=== PATIENT | female | born 1940 | race African-American/Black ===

== ENCOUNTER 2016-05-25 04:32 | Inpatient (IN) | payer MEDICARE ==
[~2016-05-25] VITALS: Ht 167.6 cm; Wt 60.6 kg
[~2016-05-25 04:32] MED LIST: CATAPRES0.1 MG PO; CATAPRES0.2 MG PO; CILOSTAZOL100 MG PO; COSOPT EYE DROPS5 ML EACH EYE; CREON DR 24,001 EACH PO; FUROSEMIDE20 MG PO; GABAPENTIN100 MG PO; LANTUS INSULIN10 ML SC; LASIX40 MG PO; LISINOPRIL10 MG PO; NORVASC10 MG PO; NOVOLOG INJ FLE; OS-CAL500 MG PO; PLAVIX75 MG PO; PROCRIT/EP40000 UNIT SQ; ROCALTROL0.25 MCG PO; SSD20 GM; TENORMIN50 MG PO; ZOCOR20 MG PO; [UNRECOGNIZED DRUG - REMARK]
[2016-05-25] MEDS ORDERED: FOLBIC RF TABL1 EACH PO (05:01)
[2016-05-25] MEDS ORDERED: ROCALTROL0.25 MCG PO (05:02)
[2016-05-25] MEDS ORDERED: PROCRIT/EP40000 UNIT SQ (05:04)
[2016-05-25] MEDS ORDERED: ZOCOR20 MG PO (05:05)
[2016-05-25] MEDS ORDERED: SODIUM BICARBO650 MG PO (05:06)
[2016-05-25] MEDS ORDERED: ZANTAC150 MG PO (05:07)
[2016-05-25] MEDS ORDERED: LOVENOX60 MG/0.6 SC (05:10)
--- NOTE | 2016-05-25 05:18 | NUR ---
PT RECEIVED AWAKE, ALERT, ORIENTED, VIA EMS FROM [facility]. FAMILY PRESENT AT BEDSIDE. PT DENIES ANY NEEDS. CONTINUE TO MONITOR CLOSELY.
[2016-05-25 05:29] VITALS: BP 182/79; BMI 23.3
[2016-05-25 06:17] LABS: ANION GAP 19.7 mmol/L (8-16); CALCIUM 7.4 mg/dL (8.5-10.1); CARBON DIOXIDE 18.2 mmol/L (21.0-32.0); CREATININE - SERUM 5.7 mg/dL (0.6-1.3); POTASSIUM - SERUM 3.9 mmol/L (3.5-5.1)
[2016-05-25 06:24] LABS: BASOPHILS 2.1 % (0.0-2.0); EOSINOPHILS 2.5 % (0-7); HEMATOCRIT 44.7 % (36.0-48.0); HEMOGLOBIN 14.2 g/dL (12-16); IMMATURE GRANULOCYTES 0.2 % (0-5); LYMPHOCYTES 17.2 % (15-50); MCH 28.7 pg (26.0-34.0); MCHC 31.8 g/dL (31.0-37.0); MCV 90.3 fL (80.0-100.0); MEAN PLATELET VOLUME 10.3 fL (7.4-10.4); MONOCYTES 6.1 % (2-11); NEUTROPHILS 71.9 % (40-80); RBC 4.95 10x6/uL (4.00-5.40); RDW 16.5 % (11.5-14.5); WBC 5.3 10x3/uL (4.8-10.8)
[2016-05-25 06:29] LABS: PLATELET COUNT 297 10x3/uL (130-400)
[2016-05-25 07:35] VITALS: BP 189/75
[2016-05-25 11:22] VITALS: BP 205/98
[2016-05-25 14:53] VITALS: Ht 167.6 cm; Wt 60.6 kg
--- NOTE | 2016-05-25 15:00 | NUR ---
CALL TO VERIFY WHAT TYPE OF ACCESS NEEDED FOR HD. HEMOSPLIT PLACEMENT ORDERED. ALERT AND ORIENTED X4. OOB WITH ASSISTANCE. FAMILY AT BEDSIDE TO ASSIST TO BATHROOM. DENIES PAIN. OXYGEN THERAPY CONTINUED FOR SOB DUE TO PULMONARY EDEMA. REFUSE SCDs. CONTINUE PLAN OF CARE. BED LOCKED AND LOW. CALL LIGHT IN REACH. TWO SIDERAILS UP.
[2016-05-25 15:34] VITALS: BP 237/102
--- NOTE | 2016-05-25 15:45 | NUR ---
OOB TO RESTROOM ASSISTED BY FAMILY. BP-237/102, O2 SAT 88% 2L NC. INCREASE O2 TO 3L NC. NOTIFY DR. OLEA OF ELEVATED BP. PRN BP MEDICATIONS ORDERED PER DOCTOR. ADMINISTER APRESOLINE 25MG PRN. REASSESS IN 30MINS. BED LOCKED AND LOW. CALL LIGHT IN REACH. TWO SIDERAILS UP.
--- NOTE | 2016-05-25 17:55 | NUR ---
REASSESS BP. BP-180/67. RESTING IN BED. FAMILY AT BEDSIDE. WAITING FOR . ALERT AND ORIENTED X4. DENIES PAIN. OXYGEN THERAPY CONTINUED. CONTINUE PLAN OF CARE AND SAFETY PRECAUTIONS.
[2016-05-25 22:42] VITALS: BP 193/88
--- NOTE | 2016-05-25 23:23 | NUR ---
REC'D COMING OUT OF BATHRMWITH DTR. IN ASSIST.VARGAS WELL WILL CONTINUE TO MONITOR FOR ANY CHGES. AND FOLLOW CURRENT PLAN OF CARE.
[2016-05-26 05:35] VITALS: BP 244/90
--- NOTE | 2016-05-26 06:00 | NUR ---
BLOOD PRESSURE 244 SYSTOLIC. APRESOLINE 25MG GIVEN PO OREDERED
[2016-05-26 06:32] LABS: BASOPHILS 1.8 % (0.0-2.0); EOSINOPHILS 2.3 % (0-7); HEMATOCRIT 43.2 % (36.0-48.0); HEMOGLOBIN 13.8 g/dL (12-16); IMMATURE GRANULOCYTES 0.2 % (0-5); LYMPHOCYTES 16.7 % (15-50); MCH 28.7 pg (26.0-34.0); MCHC 31.9 g/dL (31.0-37.0); MCV 89.8 fL (80.0-100.0); PLATELET COUNT 332 10x3/uL (130-400); RBC 4.81 10x6/uL (4.00-5.40); RDW 16.5 % (11.5-14.5); WBC 4.4 10x3/uL (4.8-10.8)
[2016-05-26 06:54] LABS: ANION GAP 15.6 mmol/L (8-16); CALCIUM 7.2 mg/dL (8.5-10.1); CARBON DIOXIDE 20.4 mmol/L (21.0-32.0); CREATININE - SERUM 5.9 mg/dL (0.6-1.3)
[2016-05-26 07:25] VITALS: BP 204/78
--- NOTE | 2016-05-26 09:00 | NUR ---
ALERT AND ORIENTED X4. TAKEN TO DIALYSIS VIA WHEELCHAIR. CONTINUE PLAN OF CARE AND SAFETY PRECAUTIONS.
[2016-05-26 15:33] VITALS: BP 160/63
[2016-05-26 22:28] VITALS: BP 148/80
[2016-05-27 00:59] VITALS: BP 153/68
--- NOTE | 2016-05-27 04:47 | NUR ---
NURSE ROUNDS 19:30 - PT AWAKE, ALERT, ORIENTED, FAMILY AT BEDSIDE. WE DISCUSSED PTS DIALYSIS, DENIED ANY DIFFICULTIES, STATES HER GENERALIZED EDEMA IS SLOWLY IMPROVING. PTS FSBS WAS 456. SOPHIA MCCLAIN APN SENIOR BIOINFORMATICS SPECIALIST FOR RENAL WAS NOTIFIED AND ORDERED HUMALONG LOW RESISTANCE S/S. PTS DAUGHTER WAS INITIALLY REFUSING FOR PT TO RECEIVE THE ORDERED LANTUS 30 UNITS, STATING SHE WAS TOO AFRAID PTS GLUCOSE WOULD BOTTOM OUT. WE DISCUSSED HOW LANTUS WORKED, AND THE IMPORTANCE OF GETTING PTS GLUCOSE DOWN TO A REASONABLE RANGE. PTS DAUGHTER AGREED TO THE 30 UNITS ALONG WITH THE 12 UNITS OF HUMALOG PER S/S. WE DISCUSSED S/S OF HYPOGLYCEMIA, AND DAUGHTER STATED SHE WOULD NOTIFY ME IMMEDIATELY IF ANYTHING CHANGED. CONTINUE TO MONITOR CLOSELY. BED LOW, CALL LIGHT IN REACH, SIDE RAILS X 2, HOB 30 DEGREES.
[2016-05-27 05:21] VITALS: BP 198/72
[2016-05-27 08:00] VITALS: BP 153/88
[2016-05-27 11:15] LABS: HEPATITIS C ANTIBODY <0.1 (0.0-0.9)
[2016-05-27 12:00] VITALS: BP 206/78
--- NOTE | 2016-05-27 12:09 | NUR ---
[facility] - Rec'd verbal order per Dr. Encarnacion, patient will need OPHD placement. Patient recently admitted to hospital for AVG placement. FDODE: 05/26/16. Patient from [place], [place], pt & family have requested placement @ [facility] for OPHD. Will upload documents and send referral. Will meet with the patient and her family for education this afternoon. APOORVA CABRALES.
[2016-05-27 16:00] VITALS: BP 177/73
--- NOTE | 2016-05-27 19:10 | NUR ---
RECEIVED REPORT, IV-RFA-SL, O2-3L, BED IS LOW, SRX2, CALL LIGHT IN REACH, FAMILY AT BEDSIDE, DENIES ANY NEEDS,
--- NOTE | 2016-05-27 19:38 | NUR ---
DR MART AND DR OLEA - ORDER TO INCREASE CILOSTAZOL TO 200MG BID WAS CANCELLED SINCE MAX DOSE IS 200MG/DAY IN PATIENTS WITH NORMAL RENAL FX - IF YOU STILL WANT 200MG BID IN THIS PATIENT PLEASE CALL PHARMACY
[2016-05-27 20:26] VITALS: BP 196/61
[2016-05-28 00:38] VITALS: BP 171/57
--- NOTE | 2016-05-28 03:52 | NUR ---
PACK TRAIN DRIVER AT BEDSIDE TO OBTAIN VITALS, CALL LIGHT IN REACH. WILL CONTINUE WITH PLAN OF CARE.
--- NOTE | 2016-05-28 03:54 | NUR ---
UP TO RESTROOM WITH DAUGHTERS HELP, OFFERED TO ASSIST BUT DAUGHTER SAID SHE HAD IT
[2016-05-28 04:40] VITALS: BP 175/66
--- NOTE | 2016-05-28 07:20 | NUR ---
RECIEVED REPORT O NPATIENT, PATIENT IS ALERT AND ORIENTED AT THIS TIME. DAUGHTER AT BEDSIDE. PATIENT HAS A R FA IV THAT IS SL AT THIS TIME. PATIENT IS ON ROOM AIR, NAD NOTED AT THIS TIME. CHEST RISES AND FALLS EQUALLY. PATIENT DENIES ANY NEEDS OR PAIN AT THIS TIME. BED IS LOW AND LOCKED. CALL LIGHT IN REACH. CPOC
[2016-05-28 08:00] VITALS: BP 167/68
--- NOTE | 2016-05-28 11:04 | NUR ---
PATIENT GONE TO DIAYLSIS. CPOC
--- NOTE | 2016-05-28 12:35 | NUR ---
Nutrition follow-up: Diet: Renal ADA consistent CHO PO intake 100% of most meals Labs reviewed; FSBS hihg +BM Pt new to dialysis Wt: 153# Will provide dialysis diet information and answer questions. RDN following.
--- NOTE | 2016-05-28 15:34 | NUR ---
patient back from diaylsis. patient vss. patient denies any pain. will cont to monitor patient. cpoc
[2016-05-28 16:00] VITALS: BP 152/59
--- NOTE | 2016-05-28 17:00 | NUR ---
PATIENT SITTING UP IN BED EATING DINNER, DENIES ANY PAIN. DAUGHTER AT BEDSIDE. CALL LIGHT IN REACH. CPOC
--- NOTE | 2016-05-28 19:15 | NUR ---
RECEIVED REPORT, 06-26L, IV-RFA-SL, FAMILY AT BEDSIDE, DENIES ANY NEEDS, CALL LIGHT IN REACH
[2016-05-28 19:51] VITALS: BP 151/65
--- NOTE | 2016-05-28 21:20 | NUR ---
[facility], GAVE 10UNITS OF LANTUS, 4 UNITS OF HUMALOG
[2016-05-29] VITALS (7 sets, daily range): BP systolic 132–224; BP diastolic 60–85
--- NOTE | 2016-05-29 03:15 | NUR ---
PT SLEEPING, CALL LIGHT IN REACH, BED IS LOW,
--- NOTE | 2016-05-29 05:29 | NUR ---
CALL LIGHT IN REACH. WILL CONTINUE WITH PLAN OF CARE.
--- NOTE | 2016-05-29 07:11 | NUR ---
RESTING, AROUSES EASILY, DAUGHTER AT BEDSIDE. ON 3L PER NC. RIGHT FOREARM SEEN WITH SALINE LOCK. LEFT AVF SEEN, + BRUIT AND + THRILL. DENIES NEEDS AT PRESENT TIME. WILL CONTINUE TO MONITOR.
--- NOTE | 2016-05-29 10:15 | NUR ---
PATIENT IS UP IN CHAIR FROM THERAPY. CALL LIGHT IN USE.
--- NOTE | 2016-05-29 10:40 | NUR ---
ASSISTED PATIENT X 2 ON AND OFF BEDPAN WHILE IN THE CHAIR FOR VERY LARGE BOWEL MOVEMENT.
--- NOTE | 2016-05-29 17:12 | NUR ---
[facility] ADDRESSING HER NEEDS I. DENIES ANY NEEDS AT THIS TIME. WILL CONTINUE TO MONITOR.
[2016-05-30 00:42] VITALS: BP 177/64
--- NOTE | 2016-05-30 04:59 | NUR ---
PT RESTING WITHOUT C/O OR DISTRESS NOTED. CALL LIGHT WITHIN REACH. WILL CONT TO MONITOR.
--- NOTE | 2016-05-30 05:58 | NUR ---
PT AM GLUCOSE 61. PT PROVIDED APPLE JUICE AND GHRAM CRACKERS
[2016-05-30 07:16] LABS: BASOPHILS 0.8 % (0.0-2.0); EOSINOPHILS 2.2 % (0-7); HEMATOCRIT 37.1 % (36.0-48.0); HEMOGLOBIN 11.7 g/dL (12-16); IMMATURE GRANULOCYTES 0.3 % (0-5); LYMPHOCYTES 12.9 % (15-50); MCHC 31.5 g/dL (31.0-37.0); MCV 91.8 fL (80.0-100.0); MONOCYTES 12.9 % (2-11); NEUTROPHILS 70.9 % (40-80); RBC 4.04 10x6/uL (4.00-5.40); RDW 17.1 % (11.5-14.5); WBC 7.8 10x3/uL (4.8-10.8)
[2016-05-30 07:17] LABS: PLATELET COUNT 259 10x3/uL (130-400)
[2016-05-30 07:18] VITALS: BP 151/59
--- NOTE | 2016-05-30 07:20 | NUR ---
RECEIVED REPORT. ASSUMED CARE OF PATIENT. DAUGHTER AT BEDSIDE. PATIENT WITH EYES CLOSED, RESP EVEN AND UNLABORED. EASILY AROUSED. CALL LIGHT WITHIN REAHC. NO DISTRESS.
[2016-05-30 07:26] VITALS: BP 151/59
[2016-05-30 07:28] LABS: ANION GAP 19.4 mmol/L (8-16); CALCIUM 7.3 mg/dL (8.5-10.1); CREATININE - SERUM 5.2 mg/dL (0.6-1.3); POTASSIUM - SERUM 3.4 mmol/L (3.5-5.1)
--- NOTE | 2016-05-30 11:04 | NUR ---
PATIENT TEMP ELEVATED AND BP ELEVATED. RENAL FOOD COUNTER WORKER NOTIFIED AND INFORMED THAT THIS [employer] REPORT DEVELOPER HELD BP MEDS DUE TO DIALYSIS. THIS [employer]BIEE REPORT DEVELOPER SPOKE WITH DIALYSIS NURSE DOWN STAIRS AND WAS TOLD THAT PATIENT SHOULD BE RECEIVING DIALYSIS WITHIN THE HOUR. RENAL FOOD COUNTER WORKER, SARAHI, STATED THAT IS WHAT SHE FIGURED AND RECEIVED NO NEW ORDERS TO ADMINISTER ANY ANTIHYPERTENSIVES.
[2016-05-30 11:30] VITALS: BP 199/75
--- NOTE | 2016-05-30 11:47 | NUR ---
PATIENT LEAVING UNIT VIA WHEELCHAIR AT THIS TIME FOR DIALYSIS DOWNSTAIRS IN DIALYSIS SUITE. NO DISTRESS UPON LEAVING UNIT.
--- NOTE | 2016-05-30 13:30 | NUR ---
RESTING ROOM AIR O2 SATURATION ON 2L OXYGEN VIA NASAL CANULA 92%. OXYGEN REMOVED FROM PATIENT FOR 7 MINUTES, PATIENT DESATED TO 82% ON ROOM AIR. OXYGEN REAPPLIED AT 2 LITERS/MIN VIA NASAL CANULA AND OXYGEN SATURATION WOULD NOT RISE ABOVE 87%. INCREASE OXYGEN TO 4 LITERS AND PATIENTS O2 SATURATION IS 91%
--- NOTE | 2016-05-30 16:09 | NUR ---
PATIENT RETURNED TO ROOM AFTER DIALYSIS. PATIENT HAD 2000ML PULLED FROM DIALYSIS TODAY. CALL LIGHT WITHIN REACH. FAMILY AT BEDSIDE. PATIENT CONSUMING LATE NOON MEAL.
--- NOTE | 2016-05-30 16:38 | NUR ---
Mrs. Ramos had hemodialysis today via her left upper arm av graft from 1215 until 1515. Average blood flow was 350 mls/minute. Net fluid removed was 2000 mls. Post vital signs were:B/P:141/107, HR:88, Temp:98.0, Resps:18.
--- NOTE | 2016-05-30 16:45 | NUR ---
FSBS 178. 2 UNITS HUMALOG ADMINISTERED PER SLIDING SCALE. NO DISTRESS.
[2016-05-30 20:30] VITALS: BP 170/53
--- NOTE | 2016-05-30 20:32 | NUR ---
RESTING IN BED EYES CLOSED. RESPIRATIONS OBSERVED. EVEN AND UNLABORED. FAMILY AT BEDSIDE
[2016-05-31 00:10] VITALS: BP 159/72
--- NOTE | 2016-05-31 02:25 | NUR ---
PT LAYING IN BED EYES CLOSED NO DISTRESS OBSERVED EYES CLOSED WILL MONITOR
[2016-05-31 04:20] VITALS: BP 174/68
--- NOTE | 2016-05-31 06:06 | NUR ---
ENTERED ROOM TO CHECK PT AM FSBS, PT LETHARGIC, ONLY RESPONDING TO PAINFUL STIMULI. CHANGE IN LOC NOTED. PT CONVERSANT THROUGHOUT NIGHT WHEN SPOKEN TO. AM FSBS 61. PRIOR AM FSBS SAME, CURRENT LOC ALTERED FROM PREVIOUS MORNING GLUCOSE. D50 ADMINISTERED, EKG OBTAINED, VITAL SIGNS 173/56 PULSE 88 02 93% 2L TEMP 100.3. EYES PERRLA. SBS AFTER D50 141 LOC ONLY SLIGHTLY ELEVATED. RAPID RESPONSE CALLED. PRIOR CVA NOTED, CALL PLACED TO DR MART OFFICE
[2016-05-31 06:40] LABS: ALBUMIN 1.7 g/dL (3.4-5.0); BILIRUBIN - TOTAL 0.4 mg/dL (0.2-1.3); CALCIUM 7.3 mg/dL (8.5-10.1); PHOSPHOROUS 5.2 mg/dL (2.5-4.9); PROTEIN - SERUM 5.1 g/dL (6.4-8.2)
[2016-05-31 06:43] LABS: ANION GAP 14.5 mmol/L (8-16); CARBON DIOXIDE 25.5 mmol/L (21.0-32.0); CREATININE - SERUM 3.8 mg/dL (0.6-1.3)
[2016-05-31 06:59] LABS: BASOPHILS 0.7 % (0.0-2.0); EOSINOPHILS 1.5 % (0-7); HEMATOCRIT 35.3 % (36.0-48.0); HEMOGLOBIN 11.1 g/dL (12-16); IMMATURE GRANULOCYTES 0.2 % (0-5); LYMPHOCYTES 13.5 % (15-50); MCH 28.8 pg (26.0-34.0); MCHC 31.4 g/dL (31.0-37.0); MCV 91.5 fL (80.0-100.0); MONOCYTES 16.7 % (2-11); NEUTROPHILS 67.4 % (40-80); PLATELET COUNT 233 10x3/uL (130-400); RBC 3.86 10x6/uL (4.00-5.40); RDW 17.1 % (11.5-14.5)
[2016-05-31 07:01] LABS: WBC 5.5 10x3/uL (4.8-10.8)
[2016-05-31 07:35] VITALS: BP 167/58
[2016-05-31 08:00] VITALS: BP 152/53
[2016-05-31 11:20] VITALS: BP 134/52
[2016-05-31 15:28] VITALS: BP 143/97
--- NOTE | 2016-05-31 18:40 | NUR ---
RESTING IN BED. FAMILY AT BEDSIDE. NO CHANGE. ANXIOUS TO GO HOME. PLAN TO DC IN AM. DENIES SOB OR PAIN. BED LOCKED AND LOW. CALL LIGHT IN REACH. TWO SIDERAILS UP.
--- NOTE | 2016-05-31 19:30 | NUR ---
ASSESSMENT COMPLETE, DENIES NEEDS AT THIS TIME. HOB UP SR UP X2, C/L IN REACH. DAUGHTER AT BEDSIDE FOR NIGHT. LEFT AVF WITH + BRUIT AND THRILL NOTED. EDEMA NOTED TO BILAT LOWER EXT. CONTINUE TO MONITOR.
--- NOTE | 2016-05-31 23:57 | NUR ---
EYES CLOSED, RESP UNLAB WITH O2 @ 2L NC IN PLACE. DROWSEY,NOT WANTING TO GET OOB TO GO TO BATHROOM WITH ASSIST. O2 SAT UNDER 90%. ASSIST WITH REPOSITIONING FOR C 7 C. VARGAS WELL. MONITORING CLOSELY FOR S/S OF ACUTE DISTRESS. C/L IN REACH.
[2016-06-01] VITALS: BP 158/64
--- NOTE | 2016-06-01 01:20 | NUR ---
O2 SAT 90%. NO S/S OF ACUTE DISTRESS NOTED. C/L IN REACH OF DAUGHTER.
[2016-06-01 06:29] LABS: BASOPHILS 1.4 % (0.0-2.0); EOSINOPHILS 1.9 % (0-7); HEMATOCRIT 33.5 % (36.0-48.0); HEMOGLOBIN 10.4 g/dL (12-16); IMMATURE GRANULOCYTES 0.2 % (0-5); LYMPHOCYTES 18.4 % (15-50); MCH 28.5 pg (26.0-34.0); MCV 91.8 fL (80.0-100.0); MEAN PLATELET VOLUME 11.1 fL (7.4-10.4); MONOCYTES 17.7 % (2-11); NEUTROPHILS 60.4 % (40-80); PLATELET COUNT 235 10x3/uL (130-400); RBC 3.65 10x6/uL (4.00-5.40); WBC 5.8 10x3/uL (4.8-10.8)
[2016-06-01 06:50] LABS: ANION GAP 13.7 mmol/L (8-16); CALCIUM 7.6 mg/dL (8.5-10.1); CARBON DIOXIDE 25.8 mmol/L (21.0-32.0); CREATININE - SERUM 4.7 mg/dL (0.6-1.3); POTASSIUM - SERUM 3.5 mmol/L (3.5-5.1)
--- NOTE | 2016-06-01 07:41 | NUR ---
AM ROUNDING- PT SITTING UP IN BED WITH EYES OPEN. FAMILY MEMBER (DAUGHTER) AT BEDSIDE. RESERVE LEFT ARM FOR AVF. + BRUIT, + THRILL. PT IS SUPPOSE TO DIALYZE TODAY PER DAUGHTER. ON 2L 0F 02 VIA NC. IV SEEN TO RIGHT WRIST, SALINE LOCKED AND PATENT. NO MONITOR. PER REPORT FROM MANAGER CRISIS NURSE KALIE PT IS SUPPOSE TO DIALYZE AND THEN POSSIBLY D/C. REFUSES SCDS. NO NEED AT CURRENT TIME. WILL CONTINUE TO MONITOR.
[2016-06-01 08:45] VITALS: BP 197/78
--- NOTE | 2016-06-01 10:12 | NUR ---
1000- PT TO DIALYSIS VIA WHEELCHAIR WITH ADONIS GANDHI.
--- NOTE | 2016-06-01 10:21 | NUR ---
Provided pt with renal diet information. RDN following.
--- NOTE | 2016-06-01 14:49 | NUR ---
1420- PT BACK FROM DIALYSIS VIA WHEELCHAIR.
--- NOTE | 2016-06-01 16:16 | NUR ---
ADONIS GANDHI CAME TO NURSES STATION TO INFORM ME THAT PTS O2 SAT WAS AT 85. WENT INTO ROOM AND TURNED PTS O2 SAT UP TO 3L VIA NC. PTS O2 SAT IS NOW 90. WILL CONTINUE TO MONITOR.
[2016-06-01 17:04] VITALS: BP 137/54
--- NOTE | 2016-06-01 18:19 | NUR ---
PT SITTING UP IN BED WITH EYES CLOSED RESTING. FAMILY MEMBER (DAUGHTER) AT BEDSIDE. NO NEED AT CURRENT TIME. WILL CONTINUE TO MONITOR.
--- NOTE | 2016-06-01 20:38 | NUR ---
PT AWAKE, ALERT, ORIENTED, LYING IN BED, HOB 20 DEGREES, FAMILY AT BEDSIDE. PT DENIES ANY NEEDS AND LOOKING FORWARD TO BEING D/C IN THE AM. CONTINUE TO MONITOR CLOSELY. BED LOW, CALL LIGHT IN REACH, SIDE RAILS X 2.
[2016-06-01 21:47] VITALS: BP 155/52
[2016-06-02 02:11] VITALS: BP 146/68
[2016-06-02 05:29] VITALS: BP 172/64
--- NOTE | 2016-06-02 06:11 | NUR ---
PT IS AWAKE, ALERT, DISORIENTED, AND CONFUSED. PT HAS HAD TRANSIENT EPISODES OF CONFUSION TO TIME, PLACE, AND SITUATION. PT REFUSED HER AM LABS. PT HAS HAD A LOW GRADE TEMP THIS SHIFT, BUT IT IS COMING DOWN ON ITS OWN. DAUGHTER AT BEDSIDE. CONTINUE TO MONITOR CLOSELY.
[2016-06-02] MEDS ORDERED: IPRAT-ALBUT 0.5-3 ML UPD (06:58)
[2016-06-02] MEDS ORDERED: PLAVIX75 MG PO (06:59)
[2016-06-02] MEDS ORDERED: CATAPRES0.2 MG PO (06:59)
[2016-06-02] MEDS ORDERED: TENORMIN50 MG PO (06:59)
[2016-06-02] MEDS ORDERED: HYDRALAZINE HCL50 MG PO (07:00)
[2016-06-02 08:45] VITALS: BP 139/53
[2016-06-02] MEDS ORDERED: SSD20 GM TP (09:30)
[2016-06-02] MEDS ORDERED: NOVOLOG100 U/M1 SC (09:30)
--- NOTE | 2016-06-02 11:14 | NUR ---
RESTING ROOM AIR SPO2: 81%
--- NOTE | 2016-06-02 11:50 | NUR ---
Patient Name: JUAN LAMB Encounter No: [id number] : 1940 Primary Insurance: MEDICARE A & B Anticipated DC Date: 06-02-2016 Planned Disposition: Home Health Service External Planned [facility] follow-up note: CM RECEIVED DISCHARGE ORDER, SPOKE TO PT AND DAUGHTER IN ROOM PT'S DAUGHTER WANTED UPDATE REPORTING SHE HAS TO DRIVE TO [place]. CM INFORMED DAUGHTER THAT OXYGEN TESTING NEEDED TO BE DONE FOR INSURANCE TO COVER THE SERVICE. PT'S DAUGHTER WILL BE DRIVING PT HOME TODAY AT DISCHARGE. IMPORTANT MESSAGE FROM MEDICARE PROVIDED AND DISCUSSED. PT AND FAMILY HAVE NO PREFERENCE ON DME COMPANY. MARISSA CALLED RAY WITH [employer] WHO REPORTED THAT THEY DO SERVICE [place] AND WILL DELIVER PORTABLE OXYGEN TO HOSPITAL ROOM FOR DISCHARGE [facility], NEBULIZER AND HOSPITAL BED DELIVERY TO PT'S HOME TODAY. CM CALLED [facility], , SPOKE TO RYAN WHO WILL RESUME HOME HEALTH ON WEDNESDAY, CM FAXED DISCHARGE INFORMATION TO [phone]. PT AND DAUGHTER NOTIFIED. NO FURTHER DISHCHARGE NEEDS IDENTIFIED. Sole Filler: Jules Brurows
[2016-06-02 11:59] VITALS: BP 140/52
--- NOTE | 2016-06-02 14:08 | NUR ---
DISCHARGE INSTRUCTIONS GIVEN TO DAUGHTER. DISCHARGE PAPERS SIGNED ON CHART. PORTABLE OXYGEN BROUGHT TO ROOM. DC RT FA IV TIP INTACT. ESCORT TO RIDE VIA WHEELCHAIR. REMAINS FREE FROM INJURY.
--- NOTE | 2016-06-05 08:32 | DS ---
PATIENT:JUAN LAMB :[birth year] MEDICAL RECORD: [id number] DISCHARGE SUMMARY ADMISSION DATE: 05/25/16 DISCHARGE DATE: 06/02/16 DATE OF DISCHARGE: 06/02/2016 This is a 75-year-old female with a past medical history of CKD, now on dialysis with ESRD secondary to diabetes and hypertension. She has been admitted and has a left IJ HemoSplit catheter placed. She has been ready to go home for the past couple of days and is somewhat deconditioned. We would have preferred a residential rehab facility, but family is going to take her home. PHYSICAL EXAMINATION: VITAL SIGNS: Blood pressure on discharge is 142/72 by the MD, with a heart rate of 66, respiratory rate 18. GENERAL: Elderly female, thin. HEENT: Extraocular muscles grossly intact, nasal cannula O2. NECK: No JVD or thyromegaly. Left IJ tunnel catheter clean with no sign of infection. CHEST: Regular rhythm. S1 and S2. LUNGS: Grossly clear to auscultation. ABDOMEN: Nontender in all 4 quadrants. EXTREMITIES: Trace lower extremity edema. No focal neurologic deficits. She has been able to ambulate to the bathroom with assistance her family member. HOME MEDICATIONS: Now, hydralazine 100 t.i.d., clonidine 0.2 t.i.d., albuterol updrafts p.r.n. q.i.d., Atenolol 100 mg a day. We have changed her insulin to lispro a.c. and h.s. sliding scale, Pepcid 20 mg a day, simvastatin 20 a day, amlodipine 10 a day, Creon 1 tab t.i.d. with meals, timolol 1 drop b.i.d. to her eyes, Neurontin 100 mg t.i.d., Plavix 75 a day, Pletal has been discontinued. PLAN: She will follow up at [facility] for continued dialysis and care with the family as mentioned above, somewhat concerned about her discharge where she is going with her family members, but they do seem very attentive but do not have a significant medical background. This patient discharge took greater than 30 minutes. Discussed with family and will likely call her dialysis unit as well. Stable on discharge. TRANSINT:[id number] Voice Confirmation ID: [id number] DOCUMENT ID: [id number] DARRELL BELTRAN MD at 0832 CC: [id number] DICTATION DATE: 06/02/1626 GRAIN COMBINER: 06/02/16 0757 DIS IN 06/02/16 [facility] [address] [place] [address]
== END 2016-06-02 14:11 | disposition home health service (06) | DRG 682 ==
LOC: D.M2 04:32
PROVIDERS: Internal Medicine; ADMIT Internal Medicine Nephrology
DX: N18.6 End stage renal disease (principal); J81.0 Acute pulmonary edema; I12.0 Hypertensive chronic kidney disease with stage 5 chronic kidney disease or end stage renal disease; E11.22 Type 2 diabetes mellitus with diabetic chronic kidney disease; Z79.4 Long term (current) use of insulin; Z86.73 Personal history of transient ischemic attack (TIA), and cerebral infarction without residual deficits; H40.9 Unspecified glaucoma; D63.1 Anemia in chronic kidney disease

== ENCOUNTER 2016-09-17 19:27 | Inpatient (IN) | payer MEDICARE ==
[~2016-09-17] VITALS: Ht 167.6 cm; Wt 60.1 kg
--- NOTE | ~2016-09-17 | HEMODYNAMI ---
PATIENT:JUAN LAMB MEDICAL RECORD: [id number] : 40 LOCATION:[facility] D.2104 ADMISSION DATE: 09/17/16 Generatedon:09/21/201610:24 Patient name: JUAN LAMB Patient #: [id number] SSN: : 1940 Date of study: 09/21/2016 Page: Of Hemodynamic Procedure Report Patient Data Patient Demographics Procedure consent was obtained First Name: JUAN Gender: Female Last Name: ADONIS : 1940 [facility] Initial: A Age: 76 year(s) Patient #: [id number] Race: Black Additional ID: [id number] Contact details Address: [address] [place] [address] State: [place] City: [place] Zip code: [address] Admission Admission Data Admission Date: 09/17/2016 Admission Time: 19:27 Room #: D.2104 Procedure Procedure Types Cath Procedure Peripheral Cath Diagnostic Procedure Miscellaneous Procedure Description Procedure Date Procedure Date: 09/21/2016 Procedure Start Time: 9:46 Procedure Staff Name Function Bernardo Haas MD Performing Physician Dena Collins RT Scrub Leigh Pimentel RN Nurse Nishant Maurice RT Monitor Procedure Data Cath Procedure Fluoroscopy Diagnostic fluoroscopy Total fluoroscopy Time: 3.7 time: 3.7 min min Diagnostic fluoroscopy Total fluoroscopy dose: 35 dose: 35 mGy mGy Contrast Material Contrast Material Type Amount (ml) Isovue 300 72 Procedure Medications Medication Administration Route Dosage Oxygen NC 3 l/min Heparin Flush Bag added to field 1 bags (1000units/500ml NS) Lidocaine 1% added to field 20 Fentanyl I.V. 25 mcg Fentanyl I.V. 25 mcg Versed I.V. 0.5 mg Versed I.V. 0.5 mg Hemodynamics Rest Heart Rate: 89 (bpm) Snapshots Pre Cath Intra NCS Post Cath Vital Signs Time Heart Resp SPO2 NIBP (mmHg) Rhythm Pain Sedation Rate (ipm) (%) Status Level (bpm) 9:29:09 84 14 146/71(127) NSR 0 (11) 10(A) , No pain 9:33:23 83 16 96 165/76(122) NSR 0 (11) 10(A) , No pain 9:37:45 85 13 98 167/69(131) NSR 0 (11) 10(A) , No pain 9:42:05 86 14 97 166/81(124) NSR 0 (11) 10(A) , No pain 9:46:26 79 12 96 173/79(124) NSR 0 (11) 10(A) , No pain 9:50:50 75 12 95 176/76(142) NSR 0 (11) 10(A) , No pain 9:55:14 74 10 96 178/74(140) NSR 0 (11) 9(A) , No pain 9:59:40 75 10 97 169/70(127) NSR 0 (11) 10(A) , No pain 10:04:00 80 12 97 167/77(127) NSR 0 (11) 9(A) , No pain 10:08:25 77 10 98 158/66(119) NSR 0 (11) 9(A) , No pain 10:13:24 81 12 96 Measuring NSR 0 (11) 9(A) , No pain 10:13:40 79 10 96 176/90(136) NSR 0 (11) 9(A) , No pain 10:18:04 79 10 98 163/78(150) NSR 0 (11) 9(A) , No pain 10:22:24 81 2 96 174/75(134) NSR 0 (11) 9(A) , No pain Medications Time Medication Route Dose Verified Delivered Reason Notes Effe ctiveness by by 9:40:49 Oxygen NC 3 Leigh Leigh Per l/min King YVETTE Pimentel RN protocol 9:41:02 Heparin Flush added 1 Leigh Leigh used for Bag to bags King YVETTE Pimentel RN procedure (1000units/500ml field NS) 9:41:13 Lidocaine 1% added 20ml Leigh Leigh for local to vial King YVETTE Pimentel RN anesthetic field 9:47:29 Fentanyl I.V. 25 Leigh Leigh for mcg King YVETTE Pimentel RN sedation 9:52:12 Fentanyl I.V. 25 Leigh Leigh for mcg King YVETTE Pimentel RN sedation 9:54:18 Versed I.V. 0.5 Leigh Leigh for mg King YVETTE Pimentel RN sedation 10:00:59 Versed I.V. 0.5 Leigh Leigh for mg King YVETTE Pimentel RN sedation Procedure Log Time Note 9:22:16 Nishant Maurice RT (R) (CV) sent for patient. Start room use. 9:22:35 Use device set IR Diagnostic 9:22:36 Bag Decanter opened to sterile field. 9:22:37 Sterile Angiographic Pack opened to sterile field. 9:22:43 Time tracking: Regular hours 9:22:47 Plan of Care:Hemodynamics will remain stable., Cardiac rhythm will remain stable., Comfort level will be maintained., Respiratory function will remain adequate., Patient/ family verbilizes understanding of procedure., Procedure tolerated without complication., Recovers from procedure without complications.. 9:23:06 Patient received from Med II to IR Alert and oriented. Tansferred to table in Supine position. 9:23:15 Correct patient and procedure confirmed by team. 9:23:17 Signed procedure consent form obtained from patient. 9:23:18 ECG and BP/O2 sat monitors applied to patient. 9:23:19 Full Disclosure recording started 9:23:20 - 9:23:28 H&P Date Dictated: 09/21/2016 Within 30 days and on chart.. 9:23:29 Pre-procedure instructions explained to patient. 9:23:30 Pre-op teaching completed and patient verbalized understanding. 9:23:31 Family in waiting room. 9:23:33 Patient NPO since Midnight. 9:23:37 Is the patient allergic to Iodine/contrast media? No. 9:28:04 Vital chart was started 9:28:05 Baseline sample Acquired. 9:28:08 Rhythm: sinus rhythm 9:29:34 Baseline sample Acquired. 9:39:34 Is patient on blood thinner?No 9:40:09 Patient diabetic? Yes. 9:40:11 If diabetic: On Metformin? No 9:40:13 - 9:40:14 ----Pre-sedation anethsthesia assessment.---- 9:40:17 Previous problem with sedation/anesthesia? No ? 9:40:23 Snore? No 9:40:25 Sleep apnea? No 9:40:28 Deviated septum? No 9:40:29 Opens mouth fully? Yes 9:40:31 Sticks out tongue? Yes 9:40:33 Airway obstruction? No ? 9:40:36 Dentures? No ? 9:40:37 - 9:40:44 Patient pain scale 0/10 no pain. 9:40:49 Oxygen 3 l/min NC was administered by Leigh Pimentel RN; Per protocol; 9:40:52 IV patent on arrival in right wrist with 0.9% NaCl at [facility]. 9:40:56 Sharps counted by scrub and verified by R.N. 9:40:56 Alarms reviewed by RShelton N. 9:41:02 Heparin Flush Bag (1000units/500ml NS) 1 bags added to field was administered by Leigh Pimentel RN; used for procedure; 9:41:13 Lidocaine 1% 20ml vial added to field was administered by Leigh Pimentel RN; for local anesthetic; 9:41:14 Left Arm area was prepped with chlora-prep and draped in sterile fashio n 9:45:25 Physician arrived 9:45:26 --------ALL STOP TIME OUT------ 9:45:27 Final Timeout: patient, procedure, and site verified with staff and physician. All members of the team are in agreement. 9:45:33 Left Arm site verified by team. 9:45:38 Physical assessment completed. ASA score P 3 - A patient with severe systemic disease as per Bernardo Haas MD. 9:45:43 Sedation plan: IV Moderate Sedation Versed, Fentanyl 9:46:00 Procedure started. 9:46:06 Local anesthetic to left arm with Lidocaine 1% by Bernardo Haas MD.INITIAL ACCESS ONLY 9:46:09 DILATOR, VESSEL 5/20 opened to sterile field. 9:46:10 PERCUTANEOUS ENTRY 19GA needle opened to sterile field. 9:46:10 Cook DOC .035 guide wire opened to sterile field. 9:47:29 Fentanyl 25 mcg I.V. was administered by Leigh Pimentel RN; for sedation; 9:47:46 Terumo 4FR Straight 65CM glide catheter opened to sterile field. 9:48:27 Terumo 5Fr [place] Sheath opened to sterile field. 9:52:12 Fentanyl 25 mcg I.V. was administered by Leigh Pimentel RN; for sedation; 9:54:18 Versed 0.5 mg I.V. was administered by Leigh Pimentel RN; for sedation; 9:58:48 Inflation number: 1 A Cordis Powerflex Pro 8.0 x 40 x 80cm balloon was prepped and advanced across the Undefined1, then inflated to 0 ARLENE for 0:00 (min:sec). 9:59:00 BasixTOUCH Inflation Syringe opened to sterile field. 10:00:59 Versed 0.5 mg I.V. was administered by Leigh Pimentel RN; for sedation; 10:12:19 Procedure ended.(Physican Out) 10:13:21 Fluoroscopy time 03.70 minutes. 10:13:26 Fluoroscopy dose: 35 mGy 10:13:26 Flurop Dose total: 35 10:13:31 Contrast amount:Isovue 300 72ml. 10:13:33 Sharps counted by scrub and verified by R.N. 10:14:10 Insertion/operative site no bleeding no hematoma. 10:14:15 Post-op/insertion site Left Fistula dressed using a 4 x 4 and Tegaderm. 10:14:24 Post left arm:stable 10:14:31 Post-procedure physical assessment completed. ASA score P 3 - A patient with severe systemic disease as per Bernardo Haas MD. 10:14:34 Post procedure rhythm: unchanged. 10:14:36 Post procedure instruction explained to patient.Patient verbalizes understanding. 10:22:09 Procedure and supply charges have been captured, reviewed, submitted an d are correct. 10:22:13 Patient transfered to [facility] with Bed. 10:22:16 Report given to [facility] II. 10:24:11 Vital chart was stopped Intervention Summary Intervention Notes Time ActionType Lesion and Equipment Action# Pressure Duration Attributes Used 9:58:48 Inflate Undefined1 Cordis 1 0 00:00 balloon Powerflex Pro 8.0 x 40 x 80cm balloon Device Usage Item Name Manufacture Quantity Catalog Hospital Part Current Minimal Lot# / Number Charge Number Stock Stock Serial# Code Bag Decanter Microtek 1 [id number] [id number] 5 [employer] Sterile Cardinal 1 [id number] [id number] 5 Angiographic Health Pack DILATOR, Cook Medical 1 [id number] 180032 44631 316274 5 [id number] VESSEL 10/10 PERCUTANEOUS Cook Medical 1 [id number] 120269 5 [id number] ENTRY 19GA needle Cook DOC Cook Medical 1 [id number] 251431 674812 5 [id number] .035 guide wire Terumo 4FR Terumo 1 [id number] [id number] 470071 5 Straight 65CM glide catheter Terumo 5Fr Terumo 1 [id number] [id number] 980611 180997 40 [place] Sheath Cordis Cardinal 1 [id number] 381787 042549 5 Powerflex Health Pro 8.0 x 40 x 80cm balloon BasixTOUCH [facility] 1 [id number] 035505 584798 5 Inflation Medical Syringe Signature Audit [place] Stage Time Signature Unsigned Intra-Procedure 09/21/2016 Nishant 10:24:08 AM Kaylene RT (R) (CV) Signatures Monitor : Nishant Signature : Kaylene RT Date : Time : [place] [id number]
[~2016-09-17 19:27] MED LIST changes: +FOLBIC RF TABL1 EACH PO; +HYDRALAZINE HCL50 MG PO; +IPRAT-ALBUT 0.5-3 ML UPD; +LOVENOX60 MG/0.6 SC; +NOVOLOG100 U/M1 SC; +SODIUM BICARBO650 MG PO; +SSD20 GM TP; +ZANTAC150 MG PO
--- NOTE | 2016-09-17 19:45 | NUR ---
REC VIA STRETCHER/EMS FROM [facility]. PATIENT IS ALERT/ORIENTED X 4, BUT NOT A GOOD HISTORIAN OF HEALTH HISTORY. HER DAUGHTER IS WITH HER AND STAYING THE NIGHT. IV IS IN R HAND INTACT SL. LEFT ARM FISTULA WITH POSITIVE BRUIT/THRILL. CHANGED DEPENDS DUE TO INCONTINENCE OF URINE AND STOOL. BLANCHABLE REDDENED AREA ON COCCYX NOTED. BILATERAL HEELS AND GREAT TOES WITH DRSG. REMOVED DRSG'S AND ASSESSED RIGHT HEEL WITH BLACKEN, NECROTIC SKIN AND LEFT HEEL WITH PINKISH/NECROTIC SKIN. BOTH GREAT TOES HAD TOENAILS EXCISED. DENIES PAIN. DRSG'S REPLACED. ORIENTED TO ROOM AND CALL LIGHT.
[2016-09-17 20:00] VITALS: BP 168/84
--- NOTE | 2016-09-17 21:50 | NUR ---
SITTING ON SIDE OF BED. GAVE HER A SANDWICH AND APPLESAUCE PER REQUEST. HER DAUGHTER GAVE INFORMATION FOR HEALTH HISTORY AND MEDICATIONS.
[2016-09-17] MEDS ORDERED: LANTUS SOL100 UNIT/1 SC ×2 (22:01→22:02)
[2016-09-17] MEDS ORDERED: CALCIUM CITRATE PLUS PO (22:10)
[2016-09-17] MEDS ORDERED: ACETAMINOPHEN500 M1 PO (22:12)
--- NOTE | 2016-09-17 23:54 | NUR ---
APPLIED SCD'S AND FOAM HEEL PROTECTOR'S. DENIES PAIN OR ANY OTHER NEEDS.
[2016-09-18] VITALS: BP 183/88
[2016-09-18 02:40] VITALS: BP 168/84; BMI 17.8
--- NOTE | 2016-09-18 03:11 | NUR ---
RESTING QUIETLY WITH EYES CLOSED. RR 16 EVEN U/L ON RA. SCD'S ARE ON. HER DAUGHTER IS PRESENT IN ROOM IN RECLINER.
[2016-09-18 04:00] VITALS: BP 135/63
--- NOTE | 2016-09-18 05:30 | NUR ---
AWAKE REQUESTED MORE ICE WATER. HEAD OPERATOR PRESENT IN ROOM.
[2016-09-18 05:55] LABS: BASOPHILS 0.2 % (0-2); EOSINOPHILS 1.5 % (0-7); HEMATOCRIT 29.6 % (36.0-48.0); HEMOGLOBIN 9.6 g/dL (12-16); IMMATURE GRANULOCYTES 0.3 % (0-5); LYMPHOCYTES 9.4 % (15-50); MCH 31.8 pg (26.0-34.0); MCHC 32.4 g/dL (31.0-37.0); MEAN PLATELET VOLUME 9.8 fL (7.4-10.4); NEUTROPHILS 81.6 % (40-80); PLATELET COUNT 241 10x3/uL (130-400); RBC 3.02 10x6/uL (4.00-5.40); RDW 13.9 % (11.5-14.5); WBC 12.1 10x3/uL (4.8-10.8)
[2016-09-18 06:53] LABS: ALBUMIN 2.4 g/dL (3.4-5.0); ANION GAP 14.9 mmol/L (8-16); BILIRUBIN - DIRECT 0.1 mg/dL (0.00-0.30); BILIRUBIN - INDIRECT 0.23 mg/dL (0.00-1.00); BILIRUBIN - TOTAL 0.33 mg/dL (0.2-1.3); CALCIUM 8.3 mg/dL (8.5-10.1); CARBON DIOXIDE 24.2 mmol/L (21.0-32.0); CREATININE - SERUM 3.7 mg/dL (0.6-1.3); PHOSPHOROUS 5.3 mg/dL (2.5-4.9); POTASSIUM - SERUM 4.1 mmol/L (3.5-5.1); PROTEIN - SERUM 6.7 g/dL (6.4-8.2); VANCOMYCIN - RANDOM 14.2 ug/mL (10.0-20.0)
--- NOTE | 2016-09-18 07:58 | NUR ---
AM ROUNDS - PT SITTING ON THE SIDE OF HER BED WITH 2 DAUGHTERS AT BEDSIDE. PT HAS GAUZE WRAPING TO BILAT HEELS AND BILAT GREAT TOES. DAUGHTER STATES THAT SHE WAS RECIEVING DRESSING CHANGES WITH [facility] NURSE. WILL CONSULT WITH WOUND CARE HERE. PT ON RA. STATES SHE IS HUNGRY AND WAITING ON BREAKFAST. 20G TO RIGHT HAND, SL. CALL ROSE IN USE. WILL CONTINUE TO MONITOR.
[2016-09-18 08:19] VITALS: BP 176/80
[2016-09-18 09:30] LABS: APTT 33.8 SECONDS (22.8-39.4); INR 1.09 (0.85-1.17)
[2016-09-18 10:38] VITALS: Ht 167.6 cm; Wt 60.1 kg
--- NOTE | 2016-09-18 11:01 | NUR ---
WOUND CARE CONSULT: PT ADMITTED LAST NIGHT AND IT WAS NOTED THAT SHE HAD CHRONIC SEVERAL WOUNDS. #1 RIGHT GREAT TOE - NAIL HAS BEEN REMOVED (OVER A MONTH AGO) AND THERE IS AN OPEN AREA OF SKIN. THERE IS A SMALL AMOUNT OF SEROUS DRAINAGE WITHOUT ODOR. #2 RIGHT HEEL - UNSTAGEABLE PRESSURE INJURY COVERING THE ENTIRE HEEL. APPROX 6CM X 6CM X BLACK DRY ESCAR. NO DRAINAGE. #3 LEFT GREAT TOE - NAIL REMOVED (OVER A MONTH AGO) WITH OPEN AREA OF SKIN. SMALL SEROUS DRAINAGE NO ODOR. #4 LEFT HEEL - UNSTAGEABLE PRESSURE INJURY WITH BLACK ESCAR AND ON THE MEDIAL ASPECT THE ESCAR HAS COME OFF TO REVEAL INTACT PINK TISSUE. NO DRAINAGE OR ODOR NOTED. #5 COCCYX - STAGE 1 PRESSURE ULCER. NON-BLANCHABLE - VERY TENDER TO THE TOUCH. CURRENT TREATMENT IS FOLLOWS: - BILATERAL GREAT TOES - SILVADENE OINTMENT TO OPEN AREAS - COVERED WITH 4X4S AND SECURED WITH TAPE. - BILATERAL HEELS - BETADINE PAINT TO ESCAR AREAS - COVER WITH 4X4S AND SECURE WITH KERLIX. - COCCYX IS CURRENTLY UNPROTECTED - COVERED WITH MEPILEX SACRAL DRESSING AND PLACED PT ON A TURN Q2H SCHEDULE. WILL RECOMMEND AN AIR OVERLAY MATTRESS AND CONTINUATION OF PRESENT TX. WOUND CARE WILL CONTINUE TO MONITOR.
--- NOTE | 2016-09-18 11:04 | NUR ---
BS IS 472. PAGES CIRA MCCLAIN. AWAITING CALL
[2016-09-18 12:18] VITALS: BP 184/77
--- NOTE | 2016-09-18 14:38 | NUR ---
PT TO DIALYSIS VIA BED.
--- NOTE | 2016-09-18 18:13 | NUR ---
PM NOTE - PT IN DIALYSIS
[2016-09-18 19:00] VITALS: BP 199/78
--- NOTE | 2016-09-18 19:10 | NUR ---
REC REPORT, ASSUMED CARE OF PATIENT. ALERT/AWAKE DENIES PAIN OR ANY NEEDS. IV IN R HAND INTACT SL. UPPER ARM AVF WITH POSITIVE BRUIT/THRILL. DRSG'S TO BILATERAL HEELS NOTED. HER DAUGHTER IS PRESENT IN ROOM.
--- NOTE | 2016-09-18 20:30 | NUR ---
ASSISTED ELECTRICAL CONTROLS ENGINEER WITH CLEANING FOR INCONTINENCE OF STOOL. PLACED NEW MEPELIX DRSG TO BUTTOCK.
--- NOTE | 2016-09-19 02:22 | NUR ---
REPOSITIONED TO LEFT SIDE WITH PILLOW TO HER BACK. FLUSHED R HAND IV AND SL.
[2016-09-19 06:32] LABS: BASOPHILS 0.3 % (0-2); EOSINOPHILS 2.1 % (0-7); HEMATOCRIT 29.7 % (36.0-48.0); HEMOGLOBIN 9.6 g/dL (12-16); IMMATURE GRANULOCYTES 0.1 % (0-5); LYMPHOCYTES 16.2 % (15-50); MCHC 32.3 g/dL (31.0-37.0); MCV 95.8 fL (80.0-100.0); MEAN PLATELET VOLUME 9.4 fL (7.4-10.4); MONOCYTES 12.1 % (2-11); NEUTROPHILS 69.2 % (40-80); PLATELET COUNT 235 10x3/uL (130-400); WBC 8.6 10x3/uL (4.8-10.8)
[2016-09-19 06:50] LABS: ANION GAP 12.7 mmol/L (8-16); CALCIUM 8.2 mg/dL (8.5-10.1); CARBON DIOXIDE 26.5 mmol/L (21.0-32.0); PHOSPHOROUS 4.5 mg/dL (2.5-4.9)
[2016-09-19 06:54] LABS: CREATININE - SERUM 2.7 mg/dL (0.6-1.3); POTASSIUM - SERUM 3.2 mmol/L (3.5-5.1)
[2016-09-19 07:33] VITALS: BP 81/51
[2016-09-19 08:00] VITALS: BP 163/57
--- NOTE | 2016-09-19 08:15 | NUR ---
PATIENT IS AWAKE AND ALERT, SHE IS SMILING AND SITTING UP GETTING READY FOR BREAKFAST. SHE HAS LEFT ARM RESERVE D/T FISTULA. SHE HAS BILAT. SCD'S ON.
[2016-09-19 10:11] LABS: HEPATITIS C ANTIBODY <0.1 (0.0-0.9)
--- NOTE | 2016-09-19 10:30 | NUR ---
PATIENT'S IV INFILTRATED IN RIGHT HAND, PLUMBING CONTRACTOR EVELIO CRUZ RESTARTED IV CATH 20 G. IN RIGHT HAND.
--- NOTE | 2016-09-19 12:22 | NUR ---
FSBS CHECKED NOW AND IT IS 370, CALLED FOR INSULIN.
--- NOTE | 2016-09-19 13:30 | NUR ---
CALLED FOR INSULIN.
--- NOTE | 2016-09-19 15:39 | NUR ---
CHNAGED PATIENT'S BILAT TOE AND HEEL DRESSINGS.
--- NOTE | 2016-09-19 16:52 | NUR ---
FSBS 290, SEE MAR
--- NOTE | 2016-09-19 21:51 | NUR ---
PT LYING IN BED, EYES CLOSED, RESPIRATIONS EVEN AND UNLABORED. PT IS EASILY ROUSABLE TO VERBAL STIMULI. DAUGHTER AT BEDSIDE. PT IS MILDLY AGITATED, REFUSING TO HAVE HER B/P CHECKED. BUNNY BOOTS ON BILATERAL HEELS, SCD'S ON. WILL MONITOR CLOSELY AND TRY HARDER TO GET V/S. BED LOW, CALL LIGHT IN REACH, SIDE RAILS X 2, HOB 20 DEGREES.
[2016-09-20] VITALS: BP 158/58
--- NOTE | 2016-09-20 02:00 | NUR ---
PT LYING IN BED, AWAKE, DIFFICULT TO ASSESS ALERTNESS OR ORIENTATION AT THIS TIME. PT DOES NOT RESPOND TO ANY QUESTIONS, AND PULLS AWAY FROM ANY TOUCH. PT WAS AGITATED AND PULLED AWAY FROM ME WHEN I WAS HOOKING UP HER IV FOR HER IV ZOSYN INFUSION. WILL CONTINUE TO MONITOR CLOSELY. DAUGHTER IN CHAIR AT BEDSIDE. BED LOW, CALL LIGHT IN REACH, SIDE RAILS X 2, HOB 15 DEGREES.
[2016-09-20 04:00] VITALS: BP 158/61
--- NOTE | 2016-09-20 04:34 | NUR ---
PT LYING IN BED, EYES CLOSED, RESPIRATIONS EVEN AND UNLABORED. PT REFUSES TO BE TURNED, REMAINS ON A 1ST STEP OVERLAY. PTS DAUGHTER IS AT BEDSIDE CHAIR. CONTINUE TO MONITOR CLOSELY. BED LOW, CALL LIGHT IN REACH, SIDE RAILS X 2, HOB 10 DEGREES.
[2016-09-20 05:07] LABS: BASOPHILS 0.8 % (0-2); EOSINOPHILS 2.4 % (0-7); HEMATOCRIT 29.7 % (36.0-48.0); HEMOGLOBIN 9.4 g/dL (12-16); IMMATURE GRANULOCYTES 0.3 % (0-5); LYMPHOCYTES 14.2 % (15-50); MCH 30.3 pg (26.0-34.0); MCHC 31.6 g/dL (31.0-37.0); MCV 95.8 fL (80.0-100.0); MEAN PLATELET VOLUME 8.9 fL (7.4-10.4); MONOCYTES 11.7 % (2-11); NEUTROPHILS 70.6 % (40-80); PLATELET COUNT 234 10x3/uL (130-400)
[2016-09-20 05:47] LABS: ANION GAP 17.7 mmol/L (8-16)
[2016-09-20 05:53] LABS: POTASSIUM - SERUM 3.7 mmol/L (3.5-5.1)
--- NOTE | 2016-09-20 07:45 | NUR ---
CHARTS CHECKED. SHIFT ASSESSMENT COMPLETED. INTRODUCED MYSELF TO PT PRIMARY RN FOR TODAYS SHIFT. PT RESTING QUIETLY AND DENIES ANY CURRENT NEEDS AT THIS TIME. CL IN REACH. WILL CTM.
[2016-09-20 08:00] VITALS: BP 138/50
--- NOTE | 2016-09-20 08:38 | NUR ---
PROVIDED PT WITH MORNING MEDICATIONS. PT SITTING UP IN BED EATING BREAKFAST WITH ASSISTANCE OF DAUGHTER AT BEDSIDE. PTS DAUGHTER REFUSED HER LANTUS AT THIS TIME AND WOULD LIKE HER FSBS RECHECKED AFTER BREAKFAST. FS EARLIER THIS MORNING WAS 189 HOWEVER DAUGHTER STATES PT SOMETIMES TAKES LESS LANTUS IF BS IS NOT ABOVE 300. TEACHING PROVIDED ON LANTUS BEING A LONG ACTING INSULIN HOWEVER DAUGHTER STILL INSIST ON HOLDING IT FOR NOW. INITIATED IVPB ZOSYN INFUSING VIA R.FA PIV WITH DRSG CDI AND SWAB CAPS IN USE. PT HAS MULTIPLE SKIN WOUNDS BUT REQUEST FOR DRSG AND WOUND CARE TO BE DONE AT A LATER TIME. NO FURTHER NEEDS. WILL CPOC.
--- NOTE | 2016-09-20 10:30 | NUR ---
FSBS 293 DAUGHTER AT BEDSIDE AND NOW AGREES FOR PT TO TAKE THE FULL SCHEDULED 20 UNITS OF HER LANTUS. MERLY CARDENAS [employer] SHERIFF AT BEDSIDE AND PROVIDED ADDITIONAL TEACHING ON THE LONG ACTING INSULIN HOWEVER DAUGHTER NOW DENIES SAYING THAT SHE DIDNT WANT IT. ADMINISTERED IT ORDERED AND WILL CPOC.
--- NOTE | 2016-09-20 11:20 | NUR ---
6 UNITS OF SS INSULIN GIVEN PER SS. PT SITTING UP IN BED RESTING WITH DAUGHTER. DENIES ANY FURTHER NEEDS AT THIS TIME. WILL CPOC.
[2016-09-20 16:00] VITALS: BP 124/44
--- NOTE | 2016-09-20 17:16 | NUR ---
FSBS 250. PT REC'D 4UNITS PER SS INSULIN. PT IS SITTING UP IN BED WITH DAUGHTER AT BEDSIDE READY TO EAT DINNER. INITIATED PTS IVPB ZOSYN INFUSING VIA R.FA PIV WITH DRSG SLIGHTLY PEELING OFF, REPLACED TEGADERM AND SECURED DRSG. SWAB CAPS IN USE. PT RESTING COMFORTABLY NO FURTHER NEEDS AT THIS TIME. WILL CPOC.
--- NOTE | 2016-09-20 19:53 | NUR ---
RECEIVED IN BEDROOM. LAYING IN BED WITH EYES OPEN. FAMILY AT BEDSIDE. ALERT. DENIES PAIN AT THIS TIME. DRESSING CHANGES DONE TO BILAT GREAT TOES AND BILAT HEELS. ENCOURAGE TO EXPRESS NEEDS. CALL LIGHT IN REACH.
[2016-09-20 22:11] VITALS: BP 132/52
--- NOTE | 2016-09-20 23:29 | NUR ---
RESTING EYES CLOSED. FAMILY AT BEDSIDE. NO SIGNS OF DISTRESS. CALL LIGHT IN REACH
[2016-09-21 04:55] LABS: BASOPHILS 0.5 % (0-2); EOSINOPHILS 2.3 % (0-7); HEMATOCRIT 29.9 % (36.0-48.0); HEMOGLOBIN 9.5 g/dL (12-16); IMMATURE GRANULOCYTES 0.2 % (0-5); LYMPHOCYTES 17.8 % (15-50); MCH 30.4 pg (26.0-34.0); MCHC 31.8 g/dL (31.0-37.0); MCV 95.5 fL (80.0-100.0); MEAN PLATELET VOLUME 9.3 fL (7.4-10.4); MONOCYTES 15.3 % (2-11); NEUTROPHILS 63.9 % (40-80); PLATELET COUNT 275 10x3/uL (130-400); RBC 3.13 10x6/uL (4.00-5.40); RDW 13.7 % (11.5-14.5); WBC 8.4 10x3/uL (4.8-10.8)
[2016-09-21 05:04] LABS: ANION GAP 15.7 mmol/L (8-16); APTT 33.8 SECONDS (22.8-39.4); CALCIUM 7.8 mg/dL (8.5-10.1); CARBON DIOXIDE 25.1 mmol/L (21.0-32.0); POTASSIUM - SERUM 3.8 mmol/L (3.5-5.1); PROTIME 13.1 SECONDS (11.6-15.0)
[2016-09-21 05:09] LABS: CREATININE - SERUM 5.4 mg/dL (0.6-1.3)
[2016-09-21 06:17] VITALS: BP 142/55
--- NOTE | 2016-09-21 07:26 | NUR ---
0715-DUAGHTER AT BEDSIDE, PATIENT APPEARS TO BE SLEEPING. RESP ARE EVEN AND NON LABORED. ON 1ST STEP OVERLAY MATTRESS. NPO FOR PROCEDURE TODAY. ON ROOM AIR. LEFT AVF SEEN. GIGI SHIPMAN.
[2016-09-21 08:45] VITALS: BP 181/67
--- NOTE | 2016-09-21 10:48 | NUR ---
1035-REPAULINENS FROM IR PROCEDURE. OPSITE SEEN TO LEFT UPPER ARM WITH DRY INTACT DRESSING. LEFT AVF, + BRUIT AND THRILL. APPLE JUICE GIVEN TO PATIENT. WILL MONITOR.
--- NOTE | 2016-09-21 12:30 | NUR ---
TO DIALYSIS VIA BED.
[2016-09-21 12:47] VITALS: BP 189/76
--- NOTE | 2016-09-21 15:33 | NUR ---
Nutrition Follow Up: Chart reviewed. Pt is eating 92% meal avg on a renal ADA diet. Wt stable. +BM 09/20/16. Labs and meds reviewed. Noted pt with multiple chronic wounds. Rec continue current diet. Will send Janak BID to promote wound healing. RD following.
--- NOTE | 2016-09-21 16:31 | NUR ---
RETURNS FROM DIALYSIS.
--- NOTE | 2016-09-21 16:32 | NUR ---
PT ARRIVED TO SUITE VIA BED FROM [facility]. AWAKE AND ALERT. L ARM AVG ACCESSED X1 ATTEMPT USING 15G 1 INCH NEEDLES. TX STARTED AT 1253 AND ENDED AT 1550. 2L FLUID TAKEN OFF AND ENDING B/P 171/69 HR, 83. SITE SECURED WITH 2X2 AND PAPER TAPE.
[2016-09-21 17:26] VITALS: BP 171/69
--- NOTE | 2016-09-21 19:30 | NUR ---
RECEIVED REPORT, PT ON OVERLAY, LYING ON L. SIDE, FAMILY AT BED SIDE, CALL LIGHT IN REACH, WILL CONTINUE TO MONITOR
[2016-09-21 19:45] VITALS: BP 159/70
--- NOTE | 2016-09-21 23:08 | NUR ---
DRY MILL OPERATOR AT BEDSIDE FOR VS. NEEDS ADDRESSED AT THIS TIME. CALL LIGHT IN REACH. WILL CONT TO MONITOR.
[2016-09-22 00:29] VITALS: BP 102/52; BP 142/85
--- NOTE | 2016-09-22 04:12 | NUR ---
ASSESSMENT COMPLETE, SEE FLOW SHEET, FAMILY AT BEDSIDE, BED IS LOW, SRX2, CALL LIGHT IN REACH, WILL CONTINUE TO MONITOR
--- NOTE | 2016-09-22 06:23 | NUR ---
BLOOD SUGAR-296- COVERED-6UNITS
[2016-09-22 07:03] LABS: ANION GAP 16.8 mmol/L (8-16); CALCIUM 7.7 mg/dL (8.5-10.1); CARBON DIOXIDE 25.4 mmol/L (21.0-32.0); CREATININE - SERUM 4.2 mg/dL (0.6-1.3)
[2016-09-22 07:04] LABS: POTASSIUM - SERUM 3.2 mmol/L (3.5-5.1)
--- NOTE | 2016-09-22 07:23 | NUR ---
0711-AM ROUNDING DONE WITH PATIENT APPEARING TO BE ASLEEP. FAMILY MEMBER IS AT BEDSIDE. ON 1ST STEP OVERLAY MATTRESS. ON ROOM AIR. RIGHT FOREARM SEEN WITH SALINE LOCK, RESERVE LEFT ARM WITH AVF. FAMILY MEMBER REPORTS THAT SHE HAD SEVERAL LOOSE STOOLS LAST NIGHT. WILL CONTINUE TO MONITOR.
[2016-09-22 07:55] LABS: BASOPHILS 0.7 % (0-2); EOSINOPHILS 0.6 % (0-7); HEMATOCRIT 27.9 % (36.0-48.0); HEMOGLOBIN 8.9 g/dL (12-16); IMMATURE GRANULOCYTES 1.4 % (0-5); MCH 30.2 pg (26.0-34.0); MCHC 31.9 g/dL (31.0-37.0); MCV 94.6 fL (80.0-100.0); MEAN PLATELET VOLUME 9.4 fL (7.4-10.4); MONOCYTES 14.2 % (2-11); NEUTROPHILS 74.1 % (40-80); PLATELET COUNT 227 10x3/uL (130-400); RBC 2.95 10x6/uL (4.00-5.40); RDW 13.6 % (11.5-14.5); WBC 12.6 10x3/uL (4.8-10.8)
[2016-09-22 09:12] VITALS: BP 176/51
[2016-09-22 15:18] VITALS: BP 170/60
--- NOTE | 2016-09-22 15:52 | NUR ---
Patient Name: JUAN LAMB Admission Status: Elective Accout number: [id number] Admission Date: 09-17-2016 : 1940 Admission Diagnosis:ALTERED MENTAL STATUS, UNSPECIFIED Attending: ANNE Current LOS: 5 Anticipated DC Date: TO BE DETERMINED Planned Disposition: Home with Home Health Primary Insurance: MEDICARE A & B [facility] Discharge Planning Comments: * Is the patient Alert and Oriented? Yes 0 * How many steps to enter\exit or inside your home? 3-4 0 * PCP DR. MACK IN [place] AT [facility] 0 * Pharmacy [facility] IN [place] 0 * Preadmission Environment Home with Family 0 * ADLs Partial Dependent 0 * Partial ADLs (Assistance needed) Bathing Medication Management Transfers 0 * Equipment Bedside Commode Cane Elevated [facility] Bed Nebulizer Oxygen Walker Wheelchair 0 * Other Equipment [facility] - MEDICAL EQUIPMENT PROVIDER 0 * List name and contact numbers for known caregivers / representatives who currently or will assist patient after discharge: RUDDY ISLAS, DAUGHTER, 0 * Community resources currently utilized Home Health Other 0 * Please name any agencies selected above. [facility], M/W/F, 1145, MEDICAID TRANSPORTATION BUS [facility] 0 * Additional services required to return to the preadmission environment? No 0 * Can the patient safely return to the preadmission environment? Yes 0 * Has this patient been hospitalized within the prior 30 days at any hospital? No 0 CM MET WITH PT AND DAUGHTER, RUDDY, IN ROOM TO DISCUSS DISCHARGE PLANNING AND NEEDS. PT'S DAUGHTER REPORTS LIVING AT HOME DEPENDENT UPON FAMILY. PT HAS ALL NEEDED MEDICAL EQUIPMENT FROM [facility] IN [place]. PT GOES TO OUTPATIENT DIALYSIS ON M/W/F AT 1145AM AT [facility], PT TAKES MEDICAID BUS. PT HAS HOME HEALTH FOR NURSING AND WOUND CARE. CM DISCUSSED AVAILABILITY OF HOME HEALTH, REHAB SERVICES AND MEDICAL EQUIPMENT. PT'S DAUGHTER REPORTS PT TO HAVE A GEL MATTRESS AND SHE WANTS A LOW AIR LOSS MATTRESS FOR PT. CM CALLED RAY OF [facility], , WAS ADVISED PT MUST HAVE DOCUMENTED STAGE 2 ULCER FOR INSURANCE TO BE BILLED; PT DOES NOT HAVE A DOCUMENTED STAGE 2 ULCER, PT'S DAUGHTER NOTIFIED. PT'S DAUGHTER REPORTS FAMILY WILL PICK PT UP FOR DISCHARGE HOME. FOR RESUMPTION OF HOME HEALTH AT DISCHARGE, NOTIFY [facility] AT [phone]. FAX DISCHARGE INFORMATION TO [facility] AT [phone]. CM TO CONTINUE TO FOLLOW AND ASSIST NEEDED. Edge Molder: Jules Burrows
--- NOTE | 2016-09-22 17:32 | NUR ---
DAUGHTER AT BEDSIDE, DENIES NEEDS AT PRESENT TIME.
--- NOTE | 2016-09-22 19:03 | NUR ---
PT RECEIVED LYING IN BED RESTING QUIETLY AT THIS TIME WITH FAMILY MEMBER AT BEDSIDE. AROUSED EASILY. S/L NOTED TO RIGHT FOREARM. DRESSING CDI. HEART RRR. LUNG SOUNDS CLEAR BILATERALLY. BOWEL SOUNDS ACTIVE X4 QUADRENTS. BILATERAL DRESSINGS NOTED TO HEELS AND GREAT TOES. DRESSINGS CDI. PT AND FAMILY MEMBER DENIES NEEDS AT THIS TIME. BED LOW. PHONE AND CALL LIGHT IN REACH. SRX2.
[2016-09-22 20:18] VITALS: BP 144/52
--- NOTE | 2016-09-22 21:00 | NUR ---
PT RESTING QUIETLY AT THIS TIME WITH EYES CLOSED RESPIRATIONS EVEN, NON-LABORED. NO ACUTE DISTRESS NOTED AT THIS TIME. FAMILY MEMBER AT BEDSIDE. BED LOW. PHONE AND CALL LIGHT IN REACH. SRX2.
--- NOTE | 2016-09-22 22:36 | NUR ---
PM MEDS GIVEN AT THIS TIME. PT DENIES NEEDS. BED LOW. PHONE AND CALL LIGHT IN REACH. SRX2.
[2016-09-22 23:57] VITALS: BP 148/55
--- NOTE | 2016-09-23 00:20 | NUR ---
PT RESTING QUIETLY AT THIS TIME WITH EYES CLOSED. RESPIRATIONS EVEN, NON-LABORED. NO ACUTE DISTRESS NOTED AT THIS TIME. BED LOW. PHONE AND CALL LIGHT IN REACH. SRX2.
--- NOTE | 2016-09-23 02:50 | NUR ---
COLLECTED STOOL SPECIMEN FOR OCCULT BLOOD AND C-DIFF AT THIS TIME. PT RESTING QUIETLY. BED LOW. PHONE AND CALL LIGHT IN REACH. SRX2.
[2016-09-23 03:52] VITALS: BP 148/64
--- NOTE | 2016-09-23 03:55 | NUR ---
PT PLACED ON ENTERIC PRECAUTIONS AT THIS TIME FOR POSITIVE C-DIFF CULTURE.
--- NOTE | 2016-09-23 04:10 | NUR ---
FLAGYL IVPB INITIATED AT THIS TIME PER ORDERS.
[2016-09-23 05:25] LABS: BASOPHILS 0.3 % (0-2); EOSINOPHILS 0.5 % (0-7); HEMATOCRIT 30.3 % (36.0-48.0); HEMOGLOBIN 9.6 g/dL (12-16); IMMATURE GRANULOCYTES 0.4 % (0-5); LYMPHOCYTES 7.9 % (15-50); MCH 29.9 pg (26.0-34.0); MCHC 31.7 g/dL (31.0-37.0); MCV 94.4 fL (80.0-100.0); MEAN PLATELET VOLUME 9.7 fL (7.4-10.4); MONOCYTES 8.5 % (2-11); NEUTROPHILS 82.4 % (40-80); RBC 3.21 10x6/uL (4.00-5.40); RDW 13.5 % (11.5-14.5)
[2016-09-23 05:39] LABS: PLATELET COUNT 283 10x3/uL (130-400); WBC 18.6 10x3/uL (4.8-10.8)
[2016-09-23 05:41] LABS: ANION GAP 15.9 mmol/L (8-16); CALCIUM 8.2 mg/dL (8.5-10.1); CARBON DIOXIDE 25.2 mmol/L (21.0-32.0); POTASSIUM - SERUM 3.1 mmol/L (3.5-5.1)
--- NOTE | 2016-09-23 06:15 | NUR ---
PT FSBS 178 AT THIS TIME. PT FAMILY MEMBER REQUESTS FAMILY MEMBER NOT RECEIVE INSULIN AT THIS TIME. BED LOW. PHONE AND CALL LIGHT IN REACH. SRX2.
--- NOTE | 2016-09-23 07:25 | NUR ---
PATIENT IN ENTERIC ISOLATION FOR + C. DIFF. WILL BE MOVING TO ROOM 2100. ON 1ST STEP OVERLAY MATTRESS, BILATERAL DRESSING TO GREAT TOES, CLEAN AND DRY. PINK HEEL PROTECTORS ON. RIGHT FA SEEN WITH SALINE LOCK. LEFT AVF WITH + BRUIT AND THRILL, FOR DIALYSIS TODAY. BILATERAL SCD'S IN USE. WILL MONITOR.
--- NOTE | 2016-09-23 08:46 | NUR ---
MOVED TO ROOM 2101 FOR ENTERIC ISOLATION.
[2016-09-23 08:53] VITALS: BP 174/72
--- NOTE | 2016-09-23 11:53 | NUR ---
SALINE LOCK REMOVED WITH CATH TIP INTACT.
[2016-09-23 12:48] VITALS: BP 167/72
[2016-09-23 16:21] VITALS: BP 168/61
[2016-09-23 19:00] VITALS: BP 176/85
--- NOTE | 2016-09-23 19:53 | NUR ---
ASSESSMENT COMPLETE, RESPERATIONS EVEN, IV TO RIGHT FOREARM SL. SITE CLEAN AND DRY. PT DENIES NEEDS, FAMILY AT BED SIDE.
--- NOTE | 2016-09-23 21:43 | NUR ---
HS MEDS GIVEN, BS 164, NO COVERAGE GIVEN AT DAUGHTERS REQUEST, STATES THAT THEY DONT COVER A BS THAT LOW BECAUSE SHE DROPS TOO LOW THROUGH OUT THE NIGHT. REPOSITIONED IN BED FOR COMFORT, DENIES PAIN OR NEEDS.
[2016-09-24] VITALS: BP 171/81
--- NOTE | 2016-09-24 00:11 | NUR ---
NEEDLE VALVE OPERATOR AT BEDSIDE TO OBTAIN VITALS, CALL LIGHT IN REACH. WILL CONTINUE TO WITH PLAN OF CARE.
--- NOTE | 2016-09-24 01:16 | NUR ---
RESTING WITH EYES CLOSED, RESPERATIONS EVEN, NO S/S DISTRESS NOTED.
[2016-09-24 04:00] VITALS: BP 194/81
[2016-09-24 05:13] LABS: BASOPHILS 0.4 % (0-2); EOSINOPHILS 1.3 % (0-7); HEMATOCRIT 29.3 % (36.0-48.0); HEMOGLOBIN 9.3 g/dL (12-16); IMMATURE GRANULOCYTES 0.3 % (0-5); LYMPHOCYTES 10.9 % (15-50); MCH 30.1 pg (26.0-34.0); MCHC 31.7 g/dL (31.0-37.0); MCV 94.8 fL (80.0-100.0); MEAN PLATELET VOLUME 9.8 fL (7.4-10.4); MONOCYTES 7.8 % (2-11); NEUTROPHILS 79.3 % (40-80); PLATELET COUNT 282 10x3/uL (130-400); RBC 3.09 10x6/uL (4.00-5.40); RDW 13.5 % (11.5-14.5)
[2016-09-24 05:23] LABS: WBC 12.5 10x3/uL (4.8-10.8)
[2016-09-24 05:29] LABS: ANION GAP 10.4 mmol/L (8-16); CALCIUM 8.2 mg/dL (8.5-10.1); CARBON DIOXIDE 29.8 mmol/L (21.0-32.0); POTASSIUM - SERUM 3.2 mmol/L (3.5-5.1)
[2016-09-24 05:34] LABS: CREATININE - SERUM 3.3 mg/dL (0.6-1.3)
[2016-09-24 08:00] VITALS: BP 219/74
--- NOTE | 2016-09-24 10:59 | NUR ---
Nutrition follow-up: Diet: Renal ADA consistent CHO PO intake ~50% of meals; po intake has decreased some. +C.Diff with loose stools Labs reviewed Wt: 109# Will continue to provide food choices and honor food preferences within diet restictions. RDN following.
[2016-09-24 12:00] VITALS: BP 148/52
--- NOTE | 2016-09-24 14:49 | NUR ---
1440- PT C/O KAILEY, NOTHING ON JUL TO GIVE HER. WILL CALL AND ASK FOR SOMETHING. 1445- CALLED CIRA MCCLAIN AND INFORMED HER THAT PT C/O KAILEY, NEW ORDER FOR 4MG OF ZOFRAN Q4PRN.
--- NOTE | 2016-09-24 14:58 | NUR ---
PT LEFT UNIT VIA WHEELCHAIR, NAD NOTED.
--- NOTE | 2016-09-24 15:20 | NUR ---
PROVIDED INCONT CARE WITH THE HELP OF WEAPONS SYSTEM INSTRUMENT MECHANIC. ALSO COLLECTED URINE SAMPLE USING IN AND OUT CATH USING STERILE TECHNIQUE. PROVIDED DRESSING CHANGE TO BILAT GREAT TOE AND BILAT HEELS. PT TOLERATED PROCEDURES WELL, REPOSITIONED PT, PT DENIES ANY NEEDS AT THIS TIME. CALL LIGHT IN REACH, DAUGTHER AT BEDSIDE, NAD NOTED, WILL CONTINUE TO MONITOR.
[2016-09-24 16:00] VITALS: BP 151/67
[2016-09-24 16:43] LABS: APPEARANCE CLEAR (CLEAR); BILIRUBIN NEGATIVE (NEGATIVE); COLOR YELLOW (YELLOW); GLUCOSE 250 mg/dL (NEGATIVE); KETONE NEGATIVE (NEGATIVE); LEUKOCYTE ESTERASE NEGATIVE (NEGATIVE); NITRITE NEGATIVE (NEGATIVE); PROTEIN 3+ mg/dL (NEGATIVE); SPECIFIC GRAVITY 1.015 (1.005-1.020); UROBILINOGEN NORMAL (NORMAL)
[2016-09-24 16:46] LABS: BACTERIA MODERATE /hpf (NONE SEEN); EPITHELIAL CELLS 0-5 /hpf (0-5); RED CELLS - URINE 0-5 /hpf (0-5); WHITE CELLS - URINE 0-5 /hpf (0-5); YEAST <1+ /hpf (NONE SEEN)
--- NOTE | 2016-09-24 18:43 | NUR ---
1724- BLOOD SUGAR OF 276, ADRIANO AT BEDSIDE REFUSED FOR PT TO RECEIVE INSULIN SINCE SHE DID NOT EAT DINNER. USAMATHER STATED " I DONT WANT HER TO BOTTOM OUT".
[2016-09-24 20:00] VITALS: BP 138/65
--- NOTE | 2016-09-24 23:02 | NUR ---
NURSE ROUNDS 21:00 - PT LYING IN BED, AWAKE, ALERT, ANSWERS QUESTIONS SLOWLY BUT APPROPRIATELY, DAUGHTER AT BEDSIDE. BOTH PT AND DAUGHTER DENY ANY ACUTE NEEDS AT THIS TIME. CONTINUE TO MONITOR CLOSELY. SCD'S PLACED AND ON, 1ST STEP OVERLAY MATTRESS WORKING APPROPRIATELY. BED LOW, CALL LIGHT IN REACH, SIDE RAILS X 2, HOB 20 DEGREES.
[2016-09-25] VITALS: BP 161/91
[2016-09-25 04:00] VITALS: BP 161/71
--- NOTE | 2016-09-25 04:06 | NUR ---
PT LYING IN BED, EYES CLOSED, RESPIRATIONS EVEN AND UNLABORED. PT EASILY ROUSABLE TO VERBAL STIMULI. DAUGHTER AT BEDSIDE. CONTINUE TO MONITOR CLOSELY. BED LOW, CALL LIGHT IN REACH, SIDE RAILS X 2, HOB 10 DEGREES, BED ALARM ON.
[2016-09-25 05:19] LABS: BASOPHILS 0.8 % (0-2); EOSINOPHILS 1.1 % (0-7); HEMATOCRIT 28.6 % (36.0-48.0); IMMATURE GRANULOCYTES 0.2 % (0-5); LYMPHOCYTES 12.1 % (15-50); MCH 30.1 pg (26.0-34.0); MCHC 31.5 g/dL (31.0-37.0); MCV 95.7 fL (80.0-100.0); MEAN PLATELET VOLUME 9.6 fL (7.4-10.4); MONOCYTES 12.1 % (2-11); NEUTROPHILS 73.7 % (40-80); PLATELET COUNT 309 10x3/uL (130-400); RBC 2.99 10x6/uL (4.00-5.40); RDW 13.5 % (11.5-14.5)
[2016-09-25 05:23] LABS: WBC 8.7 10x3/uL (4.8-10.8)
[2016-09-25 05:44] LABS: CALCIUM 8.2 mg/dL (8.5-10.1); CARBON DIOXIDE 27.4 mmol/L (21.0-32.0); CREATININE - SERUM 4.1 mg/dL (0.6-1.3); POTASSIUM - SERUM 3.4 mmol/L (3.5-5.1)
--- NOTE | 2016-09-25 07:45 | NUR ---
INTRODUCED MYSELF TO PT PRIMARY RN FOR TODAYS SHIFT. PT IS AWAKE AND RESTING QUIETLY IN BED WITH DAUGHTER AT BEDSIDE. RR NONLABORED ON RA. SHIFT ASSESSMENT COMPLETED. COULD NOT ASSESS WOUNDS ON FEET AND BUTTOCKS AT THIS TIME R/T PT NOT ALLOWING ME TO AND WANTING TO CONTINUE RESTING WILL TRY AGAIN LATER. CL IN REACH, BED IN LOWEST, SIDE RAILS X2, AIR MATTRESS OVERLAY IN PLACE AND INFLATED. WILL CPOC.
[2016-09-25 08:00] VITALS: BP 167/73
--- NOTE | 2016-09-25 09:10 | NUR ---
PT DAUGHTER AT BEDSIDE AND REFUSED LANTUS AT FIRST EVEN AFTER EXTENSIVE TEACHING PROVIDED THEN AGREED TO DO HALF OF THE DOSE. SO PT REC'D 10 UNITS OF LANTUS INSTEAD OF HER FULLY 20 THAT IS ORDERED. NOTIFIED OF THE NON-COMPLIANCE AND WILL JUST CONTINUE WITH PLAN OF CARE.
[2016-09-25 12:00] VITALS: BP 145/65
--- NOTE | 2016-09-25 14:20 | NUR ---
PT LYING BACK IN BED RESTING QUIETLY WITH DAUGHTER AT BEDSIDE. PT WOULD LIKE TO BE LEFT ALONE AND NOT TURN, WHICH SHE OFTEN REFUSES AND LIKES TO JUST LAY ON HER BACK. DENIES ANY CURRENT PAIN OR NEEDS. CL IN REACH, WILL CPOC.
[2016-09-25 16:01] VITALS: BP 135/62
--- NOTE | 2016-09-25 16:15 | NUR ---
HELD FLAGYL R/T PT RECIEVING DIALYSIS. PT RESTING IN BED AND STATES SHE IS COMFORTABLE. DENIES ANY CURRENT PAIN OR NEEDS. DENIES ANY BOWEL MOVEMENTS SO FAR FOR TODAY. WILL CPOC.
--- NOTE | 2016-09-25 16:30 | NUR ---
DAUGHTER REFUSED PTS FSBS R/T HER BEING ON DIALYSIS AND NOT EATING YET AND STATES "I DONT WANT HER TO BOTTOM OUT, WE MIGHT CHECK IT LATER ON" WILL CPOC.
[2016-09-25 19:00] VITALS: BP 147/90
--- NOTE | 2016-09-25 19:01 | NUR ---
PT RECEIVED LYING IN BED AWAKE AND ALERT. CONFUSED TO PLACE AND SITUATION. FAMILY AT BEDSIDE. S/L NOTED TO RT WRIST. DRESSING CDI. HEART RRR. LUNG SOUNDS CLEAR BILATERALLY. BOWEL SOUNDS ACTIVE X4 QUADRENTS. ABDOMEN SOFT, NON-TENDER. PEDAL PULSES EQUAL BILATERALLY. DRESSINGS NOTED TO BILATERAL HEELS AND TOES. CDI. PT DENIES NEEDS AT THIS TIME. BED LOW. PHONE AND CALL LIGHT IN REACH. SRX2.
--- NOTE | 2016-09-25 20:48 | NUR ---
PM MEDS GIVEN AT THIS TIME. TYLENOL PO GIVEN PER ORDERS FOR PAIN PT RATES 4/10 WELL. 4 UNITS HUMALOG ADMINISTERED TO LUQ OF ABD FOR FSBS OF 212. PT DENIES NEEDS AT THIS TIME. FAMILY REMAINS AT BEDSIDE. BED LOW. PHONE AND CALL LIGHT IN REACH. SRX2.
--- NOTE | 2016-09-25 22:11 | NUR ---
FLAGYL IVPB INITIATED AT THIS TIME. DENIES NEEDS AT THIS TIME. PT FAMILY MEMBER AT BEDSIDE. BED LOW. PHONE AND CALL LIGHT IN REACH. SRX2.
[2016-09-26] VITALS: BP 149/81
--- NOTE | 2016-09-26 03:48 | NUR ---
FLAGYL IVPB INITIATED AT THIS TIME. PT RESTING QUIETLY AT THIS TIME WITH EYES CLOSED. RESPIRATIONS EVEN, NON-LABORED. NO ACUTE DISTRESS NOTED AT THIS TIME. BED LOW. PHONE AND CALL LIGHT IN REACH. SRX2.
[2016-09-26 04:00] VITALS: BP 147/66
[2016-09-26 04:24] LABS: BASOPHILS 0.3 % (0-2); EOSINOPHILS 1.6 % (0-7); HEMATOCRIT 28.2 % (36.0-48.0); HEMOGLOBIN 8.9 g/dL (12-16); IMMATURE GRANULOCYTES 0.6 % (0-5); LYMPHOCYTES 13.5 % (15-50); MCH 30.4 pg (26.0-34.0); MCHC 31.6 g/dL (31.0-37.0); MCV 96.2 fL (80.0-100.0); MEAN PLATELET VOLUME 9.3 fL (7.4-10.4); MONOCYTES 13.2 % (2-11); NEUTROPHILS 70.8 % (40-80); PLATELET COUNT 278 10x3/uL (130-400); RBC 2.93 10x6/uL (4.00-5.40); RDW 13.5 % (11.5-14.5); WBC 8.9 10x3/uL (4.8-10.8)
[2016-09-26 04:39] LABS: ANION GAP 10.8 mmol/L (8-16); CALCIUM 8.2 mg/dL (8.5-10.1); CARBON DIOXIDE 31.4 mmol/L (21.0-32.0); CREATININE - SERUM 3.8 mg/dL (0.6-1.3); PHOSPHOROUS 5.2 mg/dL (2.5-4.9); POTASSIUM - SERUM 3.2 mmol/L (3.5-5.1)
--- NOTE | 2016-09-26 05:44 | NUR ---
PT FSBS 158 AT THIS TIME. PT RESTING QUIETLY WITH EYES CLOSED. RESPIRATIONS EVEN, NON-LABORED. NO ACUTE DISTRESS NOTED AT THIS TIME. BED LOW. PHONE AND CALL LIGHT IN REACH. SRX2.
--- NOTE | 2016-09-26 06:38 | NUR ---
ADMINISTERED 2 UNITS HUMALOG TO RLQ ABD AT THIS TIME. PT DENIES NEEDS. BED LOW. PHONE AND CALL LIGHT IN REACH. SRX2.
--- NOTE | 2016-09-26 07:56 | NUR ---
AM ROUNDS - PT APPEARS TO BE SLEEPING IN BACK. FAMILY AT BEDSIDE. SCDS ON, PT ON ROOM AIR, RIGHT FA, SL, 1ST STEP OVERLAY BED. PT IS ON ENTERIC ISOLATION. NO NEEDS AT THIS TIME. WILL CONTINUE TO MONITOR.
[2016-09-26 09:30] VITALS: BP 178/78
[2016-09-26] MEDS ORDERED: FLAGYL500 MG PO (12:09)
[2016-09-26] MEDS ORDERED: VANCOMYCIN250 MG/51 PO (12:10)
--- NOTE | 2016-09-26 15:35 | NUR ---
VERBAL AND WRITTEN DISCHARGE INSTRUCTIONS GIVEN TO PATIENT AND DAUGHTER. WILL REMOVE SALINE LOCK SHORTLY. PATIENT WILL BE DISCHARGED HOME VIA AMBULANCE.
--- NOTE | 2016-09-26 15:41 | NUR ---
CALLED [facility], THEY STATE THAT IT MIGHT BE 4 HOURS BEFORE PICKUP. WILL HANG ANOTHER FLAGLY ON HER AND CONTINUE WITH CARE.
[2016-09-26 16:11] VITALS: BP 168/71
[2016-09-26 17:43] VITALS: BP 162/71
--- NOTE | 2016-09-26 18:11 | NUR ---
STILL AWAITING AMBULANCE FOR DISCHARGE. SALINE LOCK STILL IN RIGHT FOREARM, WILL REMOVE UPON DISCHARGE. WILL CONTINUE TO MONITOR.
--- NOTE | 2016-09-26 18:19 | NUR ---
SALINE LOCK REMOVED WITH CATH TIP INTACT. [facility] CALLED AND SAID THEY WOULD BE HERE IN APPROX. 20 MIN.
--- NOTE | 2016-09-26 18:47 | NUR ---
DISCHARGED PER AMBULANCE
--- NOTE | 2016-09-28 10:34 | NUR ---
Patient Name: JUAN LAMB Encounter No: [id number] : 1940 Primary Insurance: MEDICARE A & B Anticipated DC Date: 09-26-2016 Planned Disposition: Home with Home Health External Planned Provider: [facility] DCP follow-up note: CM REVIEWED CHART, PT DISCHARGED HOME OVER WEEKEND FAXED DISCHARGE INFORMATION TO [facility] AT [phone] FOR RESUMPTION OF HOME HEALTH CARE. Pattern Hanger: Jules Burrows
== END 2016-09-26 18:48 | disposition home health service (06) | DRG 252 ==
LOC: D.M2 19:27
PROVIDERS: General Practice; Specialist; ADMIT Internal Medicine Nephrology
PROC: 057Y3ZZ Dilation of Upper Vein, Percutaneous Approach (ICD-10-PCS; 2016-09-21)
PROC: B51W1ZZ Fluoroscopy of Dialysis Shunt/Fistula using Low Osmolar Contrast (ICD-10-PCS; principal; 2016-09-21 09:30)
DX: T82.848A Pain due to vascular prosthetic devices, implants and grafts, initial encounter (principal); N18.6 End stage renal disease; I12.0 Hypertensive chronic kidney disease with stage 5 chronic kidney disease or end stage renal disease; I69.354 Hemiplegia and hemiparesis following cerebral infarction affecting left non-dominant side; R41.82 Altered mental status, unspecified; E11.22 Type 2 diabetes mellitus with diabetic chronic kidney disease; D63.1 Anemia in chronic kidney disease; Z99.2 Dependence on renal dialysis; K21.9 Gastro-esophageal reflux disease without esophagitis; E87.6 Hypokalemia; Y83.9 Surgical procedure, unspecified as the cause of abnormal reaction of the patient, or of later complication, without mention of misadventure at the time of the procedure; B96.89 Other specified bacterial agents as the cause of diseases classified elsewhere; Z87.891 Personal history of nicotine dependence

== ENCOUNTER 2016-10-28 22:16 | Inpatient (IN) | payer MEDICARE ==
[~2016-10-28] VITALS: Ht 167.6 cm; Wt 45.8 kg
[~2016-10-28 22:16] MED LIST changes: +ACETAMINOPHEN500 M1 PO; +CALCIUM CITRATE PLUS PO; +FLAGYL500 MG PO; +LANTUS SOL100 UNIT/1 SC; +VANCOMYCIN250 MG/51 PO
--- NOTE | 2016-10-28 22:20 | NUR ---
PT ARRIVED VIA EMS/STRETCHER WITH FAMILY AT SIDE. PT IS DISORIENTED, NONVERBAL, GRABBING AT THE AIR, HAS FLAT AFFECT, AND UNABLE TO FOLLOW SIMPLE COMMANDS AT THIS TIME. HAVE PAGED [facility] RENAL FOR ORDERS. CONTINUE TO MONITOR CLOSELY.
--- NOTE | 2016-10-28 23:08 | NUR ---
SPOKE WITH [facility] JEWEL BEARING MAKER FOR RENAL, RECEIVED ORDERS FOR MED AND DX TESTS. PT DID HAVE BC X 2 DRAWN AT [facility]. QUESTIONS ABOUT FLAGYL AND PO VANC HX, DAUGHTER STATES HER MOM DID HAVE C-DIFF FROM LAST HOSPITAL ADMISSION, AND IS INCONTINENT OF STOOL, BUT NOT HAVING DIARRHEA BEFORE. WILL COLLECT SAMPLE AND PLACE PT IS ENTERIC ISO PRECAUTIONARY. PT REMAINS LETHARGIC, FEBRILE AT THIS TIME, NONVERBAL, RESTING QUIETLY AND COMFORTABLY AT THIS TIME. DAUGHTER REMAINS AT BEDSIDE. CONTINUE TO MONITOR CLOSELY.
[2016-10-28 23:50] VITALS: BP 93/37; BMI 16.3
[2016-10-29] VITALS: BP 93/47
--- NOTE | 2016-10-29 03:41 | NUR ---
SCOOP FILLER AT BEDSIDE TO OBTAIN VITALS, CALL LIGHT IN REACH. WILL CONTINUE WITH PLAN OF CARE.
--- NOTE | 2016-10-29 03:41 | NUR ---
PT LYING IN BED, EYES CLOSED,RESPIRATIONS EVEN AND UNLABORED. DAUGHTER AT BEDSIDE. CONTINUE TO MONITOR CLOSELY. BED LOW, CALL LIGHT IN REACH, SIDE RAILS X 2, HOB 15 DEGREES.
[2016-10-29 06:02] LABS: BASOPHILS 0.2 % (0-2); EOSINOPHILS 0.1 % (0-7); HEMATOCRIT 34.7 % (36.0-48.0); HEMOGLOBIN 10.6 g/dL (12-16); IMMATURE GRANULOCYTES 0.2 % (0-5); LYMPHOCYTES 4.1 % (15-50); MCH 29.8 pg (26.0-34.0); MCHC 30.5 g/dL (31.0-37.0); MCV 97.5 fL (80.0-100.0); MEAN PLATELET VOLUME 9.2 fL (7.4-10.4); MONOCYTES 11.6 % (2-11); NEUTROPHILS 83.8 % (40-80); PLATELET COUNT 236 10x3/uL (130-400); RBC 3.56 10x6/uL (4.00-5.40); RDW 15.3 % (11.5-14.5); WBC 16.5 10x3/uL (4.8-10.8)
--- NOTE | 2016-10-29 06:20 | NUR ---
PT REMAINS NONVERBAL, FLAT AFFECT, DAUGHTER AT BEDSIDE. FSBS IS 86 - INSULIN HELD. CONTINUE TO MONITOR CLOSELY.
[2016-10-29 06:38] LABS: ALBUMIN 2.6 g/dL (3.4-5.0); ANION GAP 16.4 mmol/L (8-16); BILIRUBIN - TOTAL 0.5 mg/dL (0.2-1.3); CALCIUM 8.8 mg/dL (8.5-10.1); CARBON DIOXIDE 25.8 mmol/L (21.0-32.0); CREATININE - SERUM 2.8 mg/dL (0.6-1.3); MAGNESIUM - SERUM 1.9 mg/dL (1.8-2.4); PHOSPHOROUS 2.6 mg/dL (2.5-4.9); POTASSIUM - SERUM 3.2 mmol/L (3.5-5.1); PROTEIN - SERUM 7.5 g/dL (6.4-8.2); VANCOMYCIN - RANDOM 16.6 ug/mL (10.0-20.0)
[2016-10-29 07:15] LABS: APPEARANCE HAZY (CLEAR); BACTERIA MODERATE /hpf (NONE SEEN); BILIRUBIN NEGATIVE (NEGATIVE); COLOR YELLOW (YELLOW); EPITHELIAL CELLS 0-5 /hpf (0-5); GLUCOSE 250 mg/dL (NEGATIVE); KETONE NEGATIVE (NEGATIVE); LEUKOCYTE ESTERASE 2+ (NEGATIVE); MUCUS <1+ /lpf (NONE SEEN); NITRITE NEGATIVE (NEGATIVE); PROTEIN 3+ mg/dL (NEGATIVE); RED CELLS - URINE 0-5 /hpf (0-5); UROBILINOGEN NORMAL (NORMAL)
--- NOTE | 2016-10-29 07:19 | NUR ---
AM ROUNDING DONW WITH PATIENT IN ENTERIC ISOLATION. SALINE LOCK SEEN TO RIGHT HAND. ON 2L PER NC. DAUGHTER AT BEDSIDE. ON HEART MONITOR SHWOING UCAF, HR 117. TEMP 99.6 AT PRESENT TIME. WILL MONITOR.
[2016-10-29 08:16] VITALS: BP 189/85
--- NOTE | 2016-10-29 11:22 | NUR ---
CALL PLACED TO [facility] FOR RENAL R/T CLARIFICATION OF SLIDING SCALE INSULIN. THERE IS HUMULIN AND HUMALOG. AWAITING CALL BACK.
[2016-10-29 11:42] VITALS: BP 128/65
--- NOTE | 2016-10-29 11:46 | NUR ---
CALL PLACED TO [facility] AGAIN THERE HAS BEEN NO CALL BACK. AWAITING CALL BACK.
--- NOTE | 2016-10-29 12:37 | NUR ---
CALL PLACED TO [facility] AGAIN R/T BLOOD SUGAR AND INSULIN. AWAITING CALL BACK.
[2016-10-29 12:50] VITALS: Ht 167.6 cm; Wt 45.8 kg
--- NOTE | 2016-10-29 13:00 | NUR ---
STILL NO ANSWER FROM [facility]. I CALLED THE OFFICE AND CLARISSE SAID THAT SHE WOULD SEND HER A TEXT TO CALL ME.
--- NOTE | 2016-10-29 13:27 | NUR ---
PATIENT CLEANED AGAIN FROM INCONTINENT OF STOOL. STOOL IS LIGHT BROWN, FORMED, SOFT IN COLOR AND TEXTURE. POSITIONED ON RIGHT SIDE WITH PILLOW BETWEEN LEGS FOR COMFORT.
--- NOTE | 2016-10-29 14:22 | NUR ---
PLACED ON 1ST STEP OVERLAY MATTRESS. CLEANED UP AGAIN FROM LOOSE STOOL THIS TIME. STILL NO CALL BACK AND SOPHIA HAS BEEN BEEPED AGAIN.
--- NOTE | 2016-10-29 14:26 | NUR ---
YUKO SANDOVAL RN TO GIVE ME MESSAGE THAT SOPHIA REALIZED SHE DIDNT HAVE HER PAGER. CALLED [phone] ON HER CELL PHONE AND LEFT MESSAGE FOR HER TO CALL ME.
--- NOTE | 2016-10-29 14:31 | NUR ---
SOPHIA TO CALL AND STATES THAT SHE WANTS ME TO USE THE HUMALOG FOR THE SLIDING SCALE.
--- NOTE | 2016-10-29 14:49 | NUR ---
INFORMED DAUGHTER THAT WE HEARD FROM SOPHIA, WANTS TO WAIT UNTIL SUPPER TO RE-CHECK INSULIN AND GIVE NEEDED.
--- NOTE | 2016-10-29 15:04 | NUR ---
BILATERAL SCD'S PLACED ON PATIENT.
--- NOTE | 2016-10-29 15:16 | NUR ---
SCD'S ON LEXII LE
[2016-10-29 16:10] VITALS: BP 151/90
--- NOTE | 2016-10-29 16:22 | NUR ---
WOUND CARE CONSULT: RIGHT HEEL: NEARLY HEALED AREA THAT WAS ORIGINALLY AN UNSTAGEABLE PRESSURE INJURY. WOUND IS RED WITH PINK PERIWOUND. NO DRAINAGE OR ODOR. LEFT HEEL: HEALED UNSTAGEABLE PRESSURE INJURY. COCCYX: HEALING STAGE 1 PRESSURE INJURY. AREA CONTINUES TO BE VERY SUSCEPTIBLE TO BREAKDOWN. FAMILY AND HH CONTINUE USING SILVADENE CREAM TO AREA DAILY. CURRENT TX FOR HEELS IS EVERY OTHER DAY-PAINT WITH BETADINE AND COVER TO PROTECT WITH NON-STICK GAUZE AND KERLIX. PT HAS BEEN PLACED ON AN AIR OVERLAY MATTRESS WITH HER HEELS BRIDGED. SHE IS A TURN/REPOSITION Q2H. WOUND CARE WILL MONITOR.
--- NOTE | 2016-10-29 19:15 | NUR ---
RESTING WITH EYES CLOSED. RESPONDS TO VERBAL AND TOUCH STIMILUS. ORIENTED TO NAME ONLY. IN CONTACT ISOLATION FOR CDIF. IV IN R HAND WITH NS INFUSING AT 10ML/HR. ASSESSMENTS COMPLETED. HER DAUGHTER IS PRESENT IN ROOM.
[2016-10-29 20:00] VITALS: BP 123/59
--- NOTE | 2016-10-29 22:05 | NUR ---
ADMIN SCHED MEDS CRUSHED IN APPLESAUCE WITH FEW SIPS OF WATER SWALLOWING WITHOUT DIFFICULTY. HELD APRESOLINE FOR B/P 123/59. CHECKED BS AT 329, ADMIN HUMALOG 12 UNITS SC TO ABD RT SIDE. FAMILY MEMBER STAYING IN ROOM.
--- NOTE | 2016-10-30 02:10 | NUR ---
RESTING QUIETLY WITH EYES CLOSED. RR 16 EVEN U/L. ON 02 AT 2L/NC. TELEMETRY SHOWS 82 SR WITH SOME PAC'S. NO S/S OF PAIN OR DISCOMFORT. FAMILY MEMBER PRESENT IN ROOM.
[2016-10-30 04:00] VITALS: BP 144/58
--- NOTE | 2016-10-30 07:40 | NUR ---
0740-AM ROUNDING DONE WITH PATIENT APPEARING TO BE ASLEEP. DAUGHTER AT BEDSIDE. ON 2L PER NC. IN ENTERIC ISOLATION. ON 1ST STEP OVERLAY MATTRESS. FOR DIALYSIS TODAY. ON HEART MONITOR SHOWING SR, HR 78. RESP ARE EVEN AND NON LABORED. RIGHT HAND SEEN WITH NS INFUSING AT 10 CC/HR. WILL MONITOR.
[2016-10-30 08:00] VITALS: BP 138/54
--- NOTE | 2016-10-30 10:11 | NUR ---
IN ROOM DIALYSIS, B/P IS 108/47. Ondina CARDENAS APN NOTIFIED OF THIS (SHE IS ON THE FLOOR SEEING PATIENTS).
[2016-10-30 11:12] LABS: BASOPHILS 0.2 % (0-2); EOSINOPHILS 0.6 % (0-7); HEMATOCRIT 33.6 % (36.0-48.0); HEMOGLOBIN 10.3 g/dL (12-16); IMMATURE GRANULOCYTES 0.2 % (0-5); MCH 30.3 pg (26.0-34.0); MCHC 30.7 g/dL (31.0-37.0); MCV 98.8 fL (80.0-100.0); MEAN PLATELET VOLUME 9.8 fL (7.4-10.4); MONOCYTES 12.3 % (2-11); NEUTROPHILS 81.7 % (40-80); PLATELET COUNT 242 10x3/uL (130-400); RDW 15.3 % (11.5-14.5)
[2016-10-30 11:14] LABS: ANION GAP 15.4 mmol/L (8-16); CALCIUM 8.8 mg/dL (8.5-10.1); CARBON DIOXIDE 23.7 mmol/L (21.0-32.0); POTASSIUM - SERUM 3.1 mmol/L (3.5-5.1)
[2016-10-30 11:15] LABS: CREATININE - SERUM 3.9 mg/dL (0.6-1.3)
[2016-10-30 12:00] VITALS: BP 125/53
[2016-10-30 16:00] VITALS: BP 123/52
--- NOTE | 2016-10-30 17:23 | NUR ---
DAUGHTER AND PATIENT DENIES NEEDS AT PRESENT TIME. WILL MONITOR.
--- NOTE | 2016-10-30 20:21 | NUR ---
SPOKE WITH CHANDAN IN LAB AT [facility] R/T PTS BLOOD CULTURES DRAWN BEFORE SHE WAS TRANSFERRED TO HERE. SHE STATED THAT THERE IS NO GROWTH OF TO DATE WITH THE CULTURES. THIS INFORMATION REPORTED TO DR. BOGGS.
--- NOTE | 2016-10-30 21:52 | NUR ---
PT LYING IN BED, AWAKE, ALERT, SLIGHTLY AGITATED. DAUGHTER AT BEDSIDE. NO NEEDS AT THIS TIME. CONTINUE TO MONITOR CLOSELY.
[2016-10-31 04:00] VITALS: BP 134/55
[2016-10-31 05:39] LABS: BASOPHILS 0.3 % (0-2); EOSINOPHILS 1.8 % (0-7); HEMOGLOBIN 9.9 g/dL (12-16); IMMATURE GRANULOCYTES 0.6 % (0-5); LYMPHOCYTES 11.4 % (15-50); MCH 29.8 pg (26.0-34.0); MCHC 30.9 g/dL (31.0-37.0); MONOCYTES 9.6 % (2-11); NEUTROPHILS 76.3 % (40-80); PLATELET COUNT 223 10x3/uL (130-400); RBC 3.32 10x6/uL (4.00-5.40); RDW 14.9 % (11.5-14.5); WBC 14.1 10x3/uL (4.8-10.8)
[2016-10-31 05:45] LABS: MCV 96.4 fL (80.0-100.0)
--- NOTE | 2016-10-31 05:51 | NUR ---
PT REMAINS INCONTINENT OF BOWEL AND BLADDER WITH INCREASED DIARRHEA R/T + CDT INFECTION. PT RESTING COMFORTABLY AT THIS TIME. CONTINUE TO MONITOR.
[2016-10-31 06:06] LABS: CALCIUM 8.3 mg/dL (8.5-10.1); CARBON DIOXIDE 24.8 mmol/L (21.0-32.0); CREATININE - SERUM 3.2 mg/dL (0.6-1.3); VANCOMYCIN - RANDOM 15.9 ug/mL (10.0-20.0)
[2016-10-31 06:07] LABS: POTASSIUM - SERUM 2.8 mmol/L (3.5-5.1)
--- NOTE | 2016-10-31 06:12 | NUR ---
POTASSIUM CRITICALLY LOW, WILL NOTIFY ATTENDANT HONOR BAR RENAL.
--- NOTE | 2016-10-31 07:14 | NUR ---
MERLY CARDENAS ELECTRICIAN POWERHOUSE FOR RENAL ORDERED 40MEQ OF IV K+ WITH A POTASSIUM SERUM RECHECK 1 HOUR AFTER ADMINISTRATION.
[2016-10-31 08:00] VITALS: BP 136/54
--- NOTE | 2016-10-31 08:00 | NUR ---
AWAKE AND ALERT. ORIENTED X3. NO C/O AT THIS TIME. LUNGS ARE CLEAR BILATERALLY, NO COUGH NOTED. SKIN IS INTACT WITHOUT REDNESS EXCEPT STAGE 2 TO LEFT HEEL WHICH HAS A DRY INTACT DRESSING IN PLACE. IV TO RIGHT HAND IS PATENT WITHOUT REDNESS AT INSERTION SITE. FISTULA TO LEFT UPPER ARM WITH GOOD BRUIT AND THRILL. DENIES NEEDS. DAUGHTER AT BEDSIDE.
--- NOTE | 2016-10-31 10:00 | NUR ---
RESTING QUIETLY WITH EYES CLOSED. NO NEEDS NOTED.
[2016-10-31 12:00] VITALS: BP 116/43
--- NOTE | 2016-10-31 12:00 | NUR ---
FSBS 341. GIVEN 12 UNITS HUMALOG SUBQ PER SS. LUNCH TRAY SERVED IN ROOM. DAUGHTER ASSISTED WITH MEAL.
--- NOTE | 2016-10-31 14:43 | NUR ---
DRESSING CHANGED TO LEFT HEEL. WOUND IS CLOSED AND ALMOST HEALED. NO SIGNS OF INFECTION NOTED.
[2016-10-31 16:00] VITALS: BP 127/50
--- NOTE | 2016-10-31 17:00 | NUR ---
FSBS 262. GIVEN 16 UNITS HUMALOG SUBQ PER SS. SUPPER SERVED IN ROOM. DAUGHTER ASSISTED WITH MEAL.
--- NOTE | 2016-10-31 18:18 | NUR ---
ATE ALL OF SUPPER. NO C/O AT THIS TIME. DENIES NEEDS. NO CHANGES NOTED.
[2016-10-31 20:00] VITALS: BP 122/52
--- NOTE | 2016-10-31 20:00 | NUR ---
REC'D IN BED AWAKE AND ALERT. RESP EVEN AND UNLABORED WITH NO DISTRESS NOTED. CAN EXPRESS NEEDS AND WANTS. NO C/O NOTED OR VOICED. ASSESSMENT COMPLETED. C/L IN REACH AT BEDSIDE.
--- NOTE | 2016-10-31 22:41 | NUR ---
WAS INFORMED BY RN THAT LAB CALLED WITH RESULT OF AN POSITIVE BLOOD CULTLURE FOR GRAM + COCCI CHAIN. WILL CONITNUE TO OBSERVE FOR CHANGES. C/L IN REACH AT BEDSIDE.
--- NOTE | 2016-10-31 23:30 | NUR ---
FIRST K+ RIDER GIVEN AT 2221. TOLERATED WELL. SECOND RIDER HUNG AT THIS TIME. DAUGHTER REMAIN AT BEDSIDE. NO C/O NOTED OR VOICED. CL IN REACH.
[2016-11-01] VITALS: BP 112/53
[2016-11-01 04:00] VITALS: BP 138/60
--- NOTE | 2016-11-01 04:15 | NUR ---
RESTING WITH NO DISTRESS. CPOC.
[2016-11-01 05:20] LABS: BASOPHILS 0.4 % (0-2); EOSINOPHILS 2.2 % (0-7); HEMATOCRIT 32.4 % (36.0-48.0); HEMOGLOBIN 10.1 g/dL (12-16); IMMATURE GRANULOCYTES 0.7 % (0-5); LYMPHOCYTES 10.6 % (15-50); MCH 29.7 pg (26.0-34.0); MCHC 31.2 g/dL (31.0-37.0); MCV 95.3 fL (80.0-100.0); MEAN PLATELET VOLUME 9.9 fL (7.4-10.4); MONOCYTES 11.5 % (2-11); NEUTROPHILS 74.6 % (40-80); RDW 14.7 % (11.5-14.5); WBC 12.9 10x3/uL (4.8-10.8)
[2016-11-01 05:26] LABS: PLATELET COUNT 286 10x3/uL (130-400)
[2016-11-01 05:32] LABS: ANION GAP 12.8 mmol/L (8-16); CALCIUM 8.2 mg/dL (8.5-10.1); CARBON DIOXIDE 24.2 mmol/L (21.0-32.0); VANCOMYCIN - RANDOM 14.4 ug/mL (10.0-20.0)
--- NOTE | 2016-11-01 06:16 | NUR ---
CORRECTION TO BS RESULT ARE 106 INSTEAD OF 126
[2016-11-01 08:00] VITALS: BP 143/53
--- NOTE | 2016-11-01 18:31 | NUR ---
ALERT AND ORIENTED X4. RESTING IN BED. DAUGHTER AT BEDSIDE. NO CHANGE. DENIES ANY NEEDS. BED LOCKED AND LOW. CALL LIGHT IN REACH. TWO SIDERAILS UP.
--- NOTE | 2016-11-01 19:40 | NUR ---
RESUMED CARE OF PT, LYING IN BED WITH EYES CLOSED RESPIRATIONS EVEN AND UNLABORED ON 2LPM VIA NC. RIGHT HAND INFUSING NS @ KVO. FAMILY AT BEDSIDE. 1ST STEP OVERLAY INFLATED. SR ON TELEMETRY. CALL LIGHT IN REACH. WILL CONTINUE TO MONITOR. SEE NURSE ASSESSMENT.
[2016-11-01 21:33] VITALS: BP 145/59
[2016-11-01 23:00] VITALS: BP 148/59
--- NOTE | 2016-11-02 02:21 | NUR ---
LYING IN BED WITH EYES CLOSED, RESPIRATIONS EVEN AND UNLABORED. CALL LIGHT IN REACH. WILL CONTINUE TO MONITOR.
[2016-11-02 06:37] VITALS: BP 145/50
--- NOTE | 2016-11-02 06:43 | NUR ---
PT REFUSED PERIPHERAL STICKS. REQUESTS TO HAVE AM LABS DRAWN DURING DIALYSIS
[2016-11-02 08:00] VITALS: BP 163/82
[2016-11-02 10:16] LABS: BASOPHILS 0.3 % (0-2); EOSINOPHILS 1.9 % (0-7); HEMATOCRIT 34.1 % (36.0-48.0); HEMOGLOBIN 10.8 g/dL (12-16); IMMATURE GRANULOCYTES 2.3 % (0-5); LYMPHOCYTES 12.4 % (15-50); MCH 29.8 pg (26.0-34.0); MCHC 31.7 g/dL (31.0-37.0); MCV 94.2 fL (80.0-100.0); NEUTROPHILS 70.1 % (40-80); PLATELET COUNT 308 10x3/uL (130-400); RBC 3.62 10x6/uL (4.00-5.40); RDW 14.5 % (11.5-14.5); WBC 11.5 10x3/uL (4.8-10.8)
[2016-11-02 10:41] LABS: ANION GAP 14.4 mmol/L (8-16); CALCIUM 8.4 mg/dL (8.5-10.1); CARBON DIOXIDE 20.5 mmol/L (21.0-32.0); CREATININE - SERUM 4.9 mg/dL (0.6-1.3); POTASSIUM - SERUM 3.9 mmol/L (3.5-5.1); VANCOMYCIN - RANDOM 24.6 ug/mL (10.0-20.0)
[2016-11-02 12:00] VITALS: BP 157/63
--- NOTE | 2016-11-02 13:31 | NUR ---
Mrs. Ramos had bedside hemodialysis today from 1006 until 1307 via her left upper av graft. Average blood flow was 400mls/minute. Net fluid removed was 1000 mls. Post vital signs were: B/P:167/85, HR:82, Temp: 97.7, Resps:18. No problems.
--- NOTE | 2016-11-02 14:05 | NUR ---
Nutrition follow-up: Diet: ADA consistent CHO PO Intake ~60% average of meals labs reviewed +BM RDN following.
--- NOTE | 2016-11-02 14:10 | NUR ---
ALERT AND ORIENTED. DAUGHTER AT BEDSIDE ASSISTING WITH MEAL. DIALYSIS COMPLETE. 1L TAKEN OFF DURING DIALYSIS. REQUESTING MORE VEGETABLES. DIET ORDER FOR VEGETABLES PER REQUEST. CONTINUE PLAN OF CARE AND SAFETY PRECAUTIONS.
--- NOTE | 2016-11-02 14:52 | NUR ---
Patient Name: JUAN LAMB Admission Status: Elective Accout number: [id number] Admission Date: 10-28-2016 : 1940 Admission Diagnosis:SEPSIS, UNSPECIFIED ORGANISM Attending: TAY Current LOS: 5 Anticipated DC Date: Planned Disposition: Home with Home Health Primary Insurance: MEDICARE A & B Discharge Planning Comments: CM MET WITH PATIENT AND HER DAUGHTER, RUDDY ISLAS, ABOUT DISCHARGING PLAN/NEEDS. PATIENT WAS NONVERBAL THE WHOLE TIME ASSESSMENT BEING PERFORMED. INFORMATION WAS OBTAINED FROM HER DAUGHTER. DAUGHTER STATED THAT THE PATIENT LIVES IN HER HOME AND THAT HER GRANDSON STAYS WITH HER DURING THE DAY, AND SHE STAYS WITH HER AT NIGHT. SHE STATED THE PLAN WAS TO RETURN HOME AND RESUME HOME MANISH AND PHYSICAL THERAPY WITH [facility]. SHE HAS MULTIPLE PIECES OF MEDICAL EQUIPMENT, MOST OF WHICH IS SUPPLIED BY [facility] [place]. AT THIS TIME SHE IS DENYING ANY ADDITIONAL NEEDS AT DISCHARGE. CM WILL CONTINUE TO FOLLOW AND ASSIST NEEDED. Trolley Car Mechanic: Taylor Kapoor Is the patient Alert and Oriented? No * How many steps to enter\exit or inside your home? RAMP * PCP DR JULISA MACK [phone] * Pharmacy [facility] * Preadmission Environment Home with Family * ADLs Total Dependent * Equipment Bedside Commode Glucometer Hospital Bed Nebulizer Oxygen Shower Chair Wheelchair * Other Equipment AIR OVERLAY * List name and contact numbers for known caregivers / representatives who currently or will assist patient after discharge: DAUGHTER, RUDDY ISLAS, * Community resources currently utilized Home Health * Please name any agencies selected above. [facility] (IN [place]) AND [facility] (IN [place]) * Additional services required to return to the preadmission environment? No * Can the patient safely return to the preadmission environment? Yes * Has this patient been hospitalized within the prior 30 days at any hospital? No
--- NOTE | 2016-11-02 20:08 | NUR ---
RESUMED CARE OF PT, LYING IN BED WITH EYES CLOSED RESPIRATIONS EVEN AND UNLABORED ON 2LPM VIA NC. 77 SR ON TELEMETRY. FAMILY AT BEDSIDE. NO NEEDS VOICED AT THIS TIME. 1ST STEP OVERLAY INFLATED AND SCDS ON. CALL LIGHT IN REACH. WILL CONTINUE TO MONITOR. SEE NURSE ASSESSMENT.
[2016-11-03] VITALS: BP 145/57
--- NOTE | 2016-11-03 00:05 | NUR ---
RIGHT FOOT DRESSING CHANGED, SILVADINE APPLIED TO BOTTOM. FAMILY AT BEDSIDE. CALL LIGHT IN REACH. WILL CONTINUE TO MONTIOR.
[2016-11-03 06:16] LABS: CALCIUM 8.1 mg/dL (8.5-10.1); CARBON DIOXIDE 24.6 mmol/L (21.0-32.0); POTASSIUM - SERUM 3.6 mmol/L (3.5-5.1)
[2016-11-03 06:20] LABS: CREATININE - SERUM 3.3 mg/dL (0.6-1.3); HEMATOCRIT 33.1 % (36.0-48.0); HEMOGLOBIN 10.6 g/dL (12-16); MCH 29.8 pg (26.0-34.0); MEAN PLATELET VOLUME 9.6 fL (7.4-10.4); PLATELET COUNT 299 10x3/uL (130-400); RBC 3.56 10x6/uL (4.00-5.40); RDW 14.9 % (11.5-14.5)
--- NOTE | 2016-11-03 06:46 | NUR ---
NO CHANGES FROM PREVIOUS ASSESSMENT, CALL LIGHT IN REACH. WILL CONTINUE WITH PLAN OF CARE.
[2016-11-03 07:08] LABS: BASOPHILS 2 % (0-2); EOSINOPHILS 3 % (0-7); LYMPHOCYTES 29 % (15-50); MONOCYTES 17 % (2-11); NEUTROPHILS 45 % (40-80); PLATELET ESTIMATE NORMAL
[2016-11-03 08:00] VITALS: BP 158/73
--- NOTE | 2016-11-03 13:08 | NUR ---
ALERT AND ORIENTED X4. DAUGHTER AT BEDSIDE. SOILED LINENS CHANGED. IN AND OUT CATH FOR UA UNSUCCESSFUL. NO URINE IN BLADDER. PAGE RE, RENAL SALES AND TRAINING SPECIALIST TO NOTIFY UNABLE TO COLLECT UA. CONTINUE PLAN OF CARE AND SAFETY PRECAUTIONS. SINUS RHTHYM 77bpm ON TELEMETRY.
--- NOTE | 2016-11-03 13:46 | NUR ---
Patient Name: JUAN LAMB Encounter No: [id number] : 1940 Primary Insurance: MEDICARE A & B Anticipated DC Date: 11-03-2016 Planned Disposition: Home with Home Health External Planned Provider: [facility] DCP follow-up note: CM RECEIVED DISCHARGE ORDER, MET WITH PT AND DAUGHTER IN ROOM WHO ARE IN AGREEMENT WITH DISCHARGE HOME TODAY WITH HOME HEALTH RESUMPTION. PT'S DAUGHTER DENIES DISCHARGE NEEDS, REPORTS PT WILL TRANSPORT VIA AMBULANCE AND DAUGHTER WILL BE DRIVING HER CAR HOME TO RECEIVE PT AT HOME TODAY. IMPORTANT MESSAGE FROM MEDICARE PROVIDED AND EXPLAINED. CM CALLED [facility], NOTIFIED ROD AT [phone] OF HOSPITAL DISCHARGE, ROD PLACED ON SCHEDULE FOR RESUPTION ON WEDNESDAY PT HAS OUTPATIENT DIALYSIS TOMORROW. CM FAXED DISCHARGE INFORMATION TO [facility], . CM NOTIFIED MINESH DE OLIVEIRA OF [facility] OF PT'S DISCHARGE SO THAT SHE CAN NOTIFY PT'S OUTPATIENT DIALYSIS UNIT TO EXPECT PT TOMORROW. Jules Burrows, CASE MANAGEMENT
--- NOTE | 2016-11-03 15:11 | NUR ---
RESTING IN BED. DISCHARGE INSTRUCTIONS GIVEN VERBALLY AND WRITTEN TO PATIENT AND DAUGHTER. DISCHARGE PAPERS SIGNED ON CHART. EMS CALLED FOR TRANSPORT BACK TO [place]. CONTINUE PLAN OF CARE AND SAFETY PRECAUTIONS.
--- NOTE | 2016-11-03 16:15 | NUR ---
EMS ARRIVES FOR TRANSPORT HOME. ASSIST TRANSFER FROM BED TO STRETCHER. REMAINS FREE FROM INJURY.
[2016-11-04 17:12] LABS: AEROBE ID Preliminary report (())
== END 2016-11-03 16:15 | disposition home health service (06) | DRG 871 ==
LOC: D.M2 22:16
PROVIDERS: Internal Medicine; ADMIT Internal Medicine Nephrology
PROC: 5A1D60Z (ICD-10-PCS; principal; 2016-10-30)
DX: A41.9 Sepsis, unspecified organism (principal); N18.6 End stage renal disease; G93.49 Other encephalopathy; I12.0 Hypertensive chronic kidney disease with stage 5 chronic kidney disease or end stage renal disease; E46 Unspecified protein-calorie malnutrition; Z68.1 Body mass index [BMI] 19.9 or less, adult; E11.22 Type 2 diabetes mellitus with diabetic chronic kidney disease; D63.1 Anemia in chronic kidney disease; E87.6 Hypokalemia; B96.89 Other specified bacterial agents as the cause of diseases classified elsewhere; E11.21 Type 2 diabetes mellitus with diabetic nephropathy; R53.81 Other malaise

== ENCOUNTER 2016-12-10 00:25 | Inpatient (IN) | payer MEDICARE ==
[~2016-12-10] VITALS: Ht 167.6 cm; Wt 62.0 kg
--- NOTE | 2016-12-10 03:25 | NUR ---
PT RECIEVED PER EMS FROM [facility] VIA AMBULANCE WITH DAUGHTER AT SIDE AWAKE AND ANSWERS QUESTIONS HOWEVER IS SLOW TO PROCESS AND ANSWER. SALINE LOCK NOTED TO RIGHT FORARM FISTULA WITH THRILL AND BRUIT NOTED TO LEFT UPPER ARM. PLACED ON CONTACT ISOLATION FOR POTENTIAL CDT.
[2016-12-10 06:24] VITALS: BP 151/75
[2016-12-10 06:28] LABS: HEMATOCRIT 30.2 % (36.0-48.0); HEMOGLOBIN 9.7 g/dL (12-16); MCH 30.1 pg (26.0-34.0); MCHC 32.1 g/dL (31.0-37.0); MCV 93.8 fL (80.0-100.0); MEAN PLATELET VOLUME 9.9 fL (7.4-10.4); PLATELET COUNT 285 10x3/uL (130-400); RBC 3.22 10x6/uL (4.00-5.40); RDW 15.4 % (11.5-14.5); WBC 33.2 10x3/uL (4.8-10.8)
[2016-12-10 06:38] LABS: ANION GAP 16.2 mmol/L (8-16); BILIRUBIN - TOTAL 0.49 mg/dL (0.2-1.3); CARBON DIOXIDE 25.4 mmol/L (21.0-32.0); CREATININE - SERUM 4.1 mg/dL (0.6-1.3); PROTEIN - SERUM 6.4 g/dL (6.4-8.2)
[2016-12-10 07:11] LABS: POTASSIUM - SERUM 2.6 mmol/L (3.5-5.1)
--- NOTE | 2016-12-10 07:15 | NUR ---
PT SITTING UP IN BED NO S/S DISTRESS NOTED. RR EVEN AND UNLABORED. CAREGIVER AT BEDSIDE WILL CONT TO MONITOR
[2016-12-10 07:38] LABS: LYMPHOCYTES 3 % (15-50); MONOCYTES 7 % (2-11); NEUTROPHILS 72 % (40-80); PLATELET ESTIMATE NORMAL
[2016-12-10 08:42] VITALS: BP 193/59
[2016-12-10 11:57] VITALS: BP 130/66
[2016-12-10 12:35] VITALS: Ht 167.6 cm; Wt 62.0 kg
--- NOTE | 2016-12-10 13:07 | NUR ---
ORDER FOR AIR OVERLAY PLACED. FAXED ORDER DOWN TO [facility]
[2016-12-10 13:16] LABS: POTASSIUM - SERUM 3.5 mmol/L (3.5-5.1)
--- NOTE | 2016-12-10 14:00 | NUR ---
PT WAS CLEANED UP FOR INC BM AND FIRST STEP OVERLAY WAS PLACED ON BED. PT TOLERATEDD WELL DAUGHTER IS AT BEDSIDE. BOTH DENY NEEDS WILL CONT TO MONITOR
[2016-12-10 16:06] VITALS: BP 144/54
--- NOTE | 2016-12-10 18:34 | NUR ---
PT SITTING UP IN BED DENIES NEEDS DAUGHTER AT BEDSIDE. PT IS BEING TURNED FREQUENTLY BY DAUGHTER AND STAFF.
--- NOTE | 2016-12-10 19:40 | NUR ---
RECEIVED REPORT, WILL ASSUME CARE OF PT, PT DAUGHTER IS IN ROOM, DENIES ANY NEEDS FOR PT AT THIS TIME, PT ON Ist STEP MATTRESS, BED IS LOW, SRX2, CALL LIGHT IN REACH, WILL CONTINUE PLAN OF CARE
[2016-12-10 20:00] VITALS: BP 137/50
--- NOTE | 2016-12-10 21:44 | NUR ---
BLOOD SUGAR-159, DAUGHTER REFUSED COVERAGE
[2016-12-11] VITALS: BP 120/58
--- NOTE | 2016-12-11 01:22 | NUR ---
ASSESSMENT COMPLETE, SEE FLOWSHEET, DAUGHTER AT BEDSIDE, DENIES ANY NEEDS AT THIS TIME, BED IS LOW, SRX2, CALL LIGHT IN REACH, WILL CONTINUE TO MONITOR
--- NOTE | 2016-12-11 02:18 | NUR ---
GAVE TYLENOL FOR FEVER ORDER
[2016-12-11 04:00] VITALS: BP 127/49
--- NOTE | 2016-12-11 04:51 | NUR ---
TRANSITIONS MANAGER AT BEDSIDE TO OBTAIN VITALS, CALL LIGHT IN REACH. WILL CONTINUE WITH PLAN OF CARE.
--- NOTE | 2016-12-11 05:54 | NUR ---
BLOODSUGAR-47- GAVE 25ML DEXTROSE, WILL RECHECK BLOODSUGAR
--- NOTE | 2016-12-11 07:43 | NUR ---
PT RESTING IN BED WITH FAMILY MEMBER AT BEDSIDE EVEN AND UNLABORED RESPIRATIONS NOTED WILL CONTINUE TO MONITOR
[2016-12-11 07:47] VITALS: BP 129/50
[2016-12-11 09:54] LABS: BASOPHILS 0.1 % (0-2); EOSINOPHILS 0.2 % (0-7); HEMATOCRIT 27.5 % (36.0-48.0); IMMATURE GRANULOCYTES 1.1 % (0-5); LYMPHOCYTES 1.8 % (15-50); MCH 30.3 pg (26.0-34.0); MCHC 32.7 g/dL (31.0-37.0); MCV 92.6 fL (80.0-100.0); MEAN PLATELET VOLUME 8.9 fL (7.4-10.4); MONOCYTES 5.3 % (2-11); NEUTROPHILS 91.5 % (40-80); PLATELET COUNT 252 10x3/uL (130-400); RBC 2.97 10x6/uL (4.00-5.40); RDW 15.2 % (11.5-14.5); WBC 40.7 10x3/uL (4.8-10.8)
[2016-12-11 09:59] LABS: ANION GAP 15.6 mmol/L (8-16); CALCIUM 8.1 mg/dL (8.5-10.1); CARBON DIOXIDE 23.6 mmol/L (21.0-32.0); CREATININE - SERUM 4.9 mg/dL (0.6-1.3); PHOSPHOROUS 2.6 mg/dL (2.5-4.9); POTASSIUM - SERUM 3.2 mmol/L (3.5-5.1)
[2016-12-11 10:18] LABS: HEPATITIS C ANTIBODY <0.1 (0.0-0.9)
--- NOTE | 2016-12-11 10:50 | NUR ---
PT LAYING DOWN IN BED APPEARS TO BE IN NO S/S DISTRESS DAUGHTER IS AT BEDSIDE
[2016-12-11 11:43] VITALS: BP 121/50
--- NOTE | 2016-12-11 19:20 | NUR ---
RECEIVED REPORT, WILL ASSUME CARE OF PT, PT RECEIVING DIALYSIS AT THIS TIME, DISCUSSED WITH DAUGHTER ABOUT CRUSHING MEDS,SHE AGREE TO TRY, PT IS ON AIR MATTRESS, BED IS LOW, SRX2, CALL LIGHT IN REACH, WILL CONTINUE PLAN OF CARE
[2016-12-11 20:00] VITALS: BP 103/46
--- NOTE | 2016-12-11 22:09 | NUR ---
SCD'S CONTRAINDICATED RIGHT LOWER EXTREMITY HAS A WOUND. PATIENT CANNOT TOLERATE COMPRESSION DEVICES.
--- NOTE | 2016-12-11 23:56 | NUR ---
ASSESSMENT COMPLETE, SEE FLOW SHEET, PT SLEEPING, BED IS LOW, SRX2, CALL LIGHT IN REACH, WILL CONTINUE TO MONITOR
[2016-12-12] VITALS: BP 122/52
[2016-12-12 04:00] VITALS: BP 123/49
[2016-12-12 06:20] LABS: BASOPHILS 0.1 % (0-2); EOSINOPHILS 0.1 % (0-7); HEMATOCRIT 24.8 % (36.0-48.0); HEMOGLOBIN 8.1 g/dL (12-16); LYMPHOCYTES 2.1 % (15-50); MCH 30.2 pg (26.0-34.0); MCHC 32.7 g/dL (31.0-37.0); MCV 92.5 fL (80.0-100.0); MEAN PLATELET VOLUME 9.4 fL (7.4-10.4); MONOCYTES 4.9 % (2-11); NEUTROPHILS 91.8 % (40-80); PLATELET COUNT 266 10x3/uL (130-400); RBC 2.68 10x6/uL (4.00-5.40); RDW 15.5 % (11.5-14.5); WBC 32.8 10x3/uL (4.8-10.8)
[2016-12-12 06:38] LABS: ANION GAP 9.8 mmol/L (8-16); CALCIUM 7.9 mg/dL (8.5-10.1); CARBON DIOXIDE 28.9 mmol/L (21.0-32.0)
[2016-12-12 06:41] LABS: CREATININE - SERUM 3.2 mg/dL (0.6-1.3); POTASSIUM - SERUM 2.7 mmol/L (3.5-5.1)
[2016-12-12 08:10] VITALS: BP 114/44
--- NOTE | 2016-12-12 09:33 | NUR ---
PT IN BED RESTING EVEN AND UNLABORED RESPIRATIONS NOTED DAUGHTER AT BEDSIDE DENIES NEEDS AT THIS TIME WILL CONTINUE TO MONITOR
--- NOTE | 2016-12-12 11:05 | NUR ---
1ST UNIT [facility]'S INFUSING AT THIS TIME. TOLERATING INFUSION WELL. NO DISTRESS. VITALS STABLE. DAUGHTER AT BEDSIDE.
--- NOTE | 2016-12-12 13:42 | NUR ---
RESTS IN ISOLATION ROOM. CALL LIGHT IN REACH. WILL MONITOR NEEDS.
--- NOTE | 2016-12-12 14:59 | NUR ---
1ST UNIT COMPLETED INFUSING AT 1455. TOLERATED INFUSION WELL. NO DISTRESS.
[2016-12-12 16:03] LABS: ANION GAP 12.8 mmol/L (8-16); CALCIUM 7.8 mg/dL (8.5-10.1); CARBON DIOXIDE 25.4 mmol/L (21.0-32.0); CREATININE - SERUM 3.4 mg/dL (0.6-1.3); POTASSIUM - SERUM 3.2 mmol/L (3.5-5.1)
--- NOTE | 2016-12-12 16:09 | NUR ---
DURING ADMINISTRATION OF FIRST UNIT OF BLOOD LAB CAME AND BECKY BLOOD A POTASSIUM LEVEL OF 7.6 WAS REPORTED. I REQUESTED A REDRAW. FOLLOWING THE REDRAW A POTASSIUM LEVEL OF 3.2 WAS REPORTED.
--- NOTE | 2016-12-12 17:35 | NUR ---
2ND UNIT PR[facility]'S INFUSING AT THIS TIME. NO S/S TRANSFUSION REACTION. PATIENTS DAUGHTER AT BEDSIDE. NO DISTRESS. CALL LIGHT WITHIN REACH.
--- NOTE | 2016-12-12 18:42 | NUR ---
1ST STEP OVERLAY REMAINS PATENT. CONTINUES WITH BLOOD TRANSFUSION. TOLERATES BLOOD TRANSFUSION WELL. NO S/S OF TRANSFUSION REACTION.
--- NOTE | 2016-12-12 19:21 | NUR ---
RECEIVED REPORT, WILL ASSUME CARE OF PT, SECOND UNIT OF [facility] INFUSING, DAUGHTER AT BEDSIDE, REPOSITION TO L.SIDE, BED IS LOW, SRX2, CALL LIGHT IN REACH, WILL CONTINUE PLAN OF CARE
[2016-12-12 20:00] VITALS: BP 128/66
--- NOTE | 2016-12-12 21:47 | NUR ---
[id number], GAVE 2 UNIT OF HUMALOG, WILL MONITOR
--- NOTE | 2016-12-13 01:27 | NUR ---
ASSESSMENT COMPLETE, SEE FLOW SHEET, PT SLEEPING, DAUGHTER IN ROOM, BED IS LOW, SRX2, CALL LIGHT IN REACH, WILL CONTINUE TO MONITOR
[2016-12-13 04:00] VITALS: BP 141/63
[2016-12-13 06:42] LABS: BASOPHILS 0.1 % (0-2); EOSINOPHILS 0.5 % (0-7); HEMATOCRIT 34.7 % (36.0-48.0); HEMOGLOBIN 11.8 g/dL (12-16); IMMATURE GRANULOCYTES 0.9 % (0-5); LYMPHOCYTES 4.2 % (15-50); MCH 30.3 pg (26.0-34.0); MEAN PLATELET VOLUME 9.1 fL (7.4-10.4); MONOCYTES 5.7 % (2-11); NEUTROPHILS 88.6 % (40-80); PLATELET COUNT 258 10x3/uL (130-400); RDW 15.6 % (11.5-14.5); WBC 26.1 10x3/uL (4.8-10.8)
[2016-12-13 06:52] LABS: ANION GAP 17.1 mmol/L (8-16); CALCIUM 7.8 mg/dL (8.5-10.1); CARBON DIOXIDE 21.1 mmol/L (21.0-32.0); CREATININE - SERUM 3.6 mg/dL (0.6-1.3); MAGNESIUM - SERUM 1.8 mg/dL (1.8-2.4); POTASSIUM - SERUM 3.2 mmol/L (3.5-5.1)
--- NOTE | 2016-12-13 07:22 | NUR ---
PT IN BED EYES OPEN FAMILY AT BEDSIDE APPLYING LOTION TO PT WILL CONTINUE TO MONITOR
[2016-12-13 07:47] VITALS: BP 133/58
--- NOTE | 2016-12-13 08:30 | NUR ---
PATIENT RESTING IN BED WITH EYES OPEN. STATED SHE IS DOING OKAY THIS AM. DAUGHTER AT BEDSIDE. 1ST STEP OVERLAY PATENT. NO DISTRESS. CALL LIGHT WITHIN REACH.
--- NOTE | 2016-12-13 09:54 | NUR ---
RESTS WITH EYES CLOSED. IV PATENT. ISOLATION PRECAUTIONS CONT. WILL MONITOR NEEDS.
[2016-12-13 11:41] VITALS: BP 132/56
[2016-12-13 15:03] LABS: ANION GAP 14.1 mmol/L (8-16); CALCIUM 7.4 mg/dL (8.5-10.1); CREATININE - SERUM 3.9 mg/dL (0.6-1.3)
[2016-12-13 15:18] LABS: POTASSIUM - SERUM 4.1 mmol/L (3.5-5.1)
[2016-12-13 16:12] VITALS: BP 107/39
[2016-12-13 19:00] VITALS: BP 122/53
--- NOTE | 2016-12-13 19:25 | NUR ---
RECEIVED REPORT, WILL ASSUME CARE OF PT, PT DID SPEAK TO ME TODAY, BED IS LOW, SRX2,CALL LIGHT IN REACH, DAUGHTER AT BEDSIDE, WILL CONTINUE PLAN OF CARE
--- NOTE | 2016-12-14 01:05 | NUR ---
CALL LIGHT IN REACH, WILL CONTINUE WITH PLAN OF CARE.
[2016-12-14 04:00] VITALS: BP 135/74
--- NOTE | 2016-12-14 04:12 | NUR ---
ASSESSMENT COMPLETE, SEE FLOW SHEET, PT SLEEPING, BED IS LOW, SRX2, CALL LIGHT IN REACH, DAUGHTER AT BEDSIDE, WILL CONTINUE TO MONITOR
[2016-12-14 05:36] LABS: BASOPHILS 0.1 % (0-2); EOSINOPHILS 0.6 % (0-7); HEMATOCRIT 38.2 % (36.0-48.0); HEMOGLOBIN 12.8 g/dL (12-16); IMMATURE GRANULOCYTES 0.8 % (0-5); MCHC 33.5 g/dL (31.0-37.0); MCV 89.5 fL (80.0-100.0); MONOCYTES 7.7 % (2-11); NEUTROPHILS 84.8 % (40-80); PLATELET COUNT 259 10x3/uL (130-400); RBC 4.27 10x6/uL (4.00-5.40); RDW 15.5 % (11.5-14.5)
[2016-12-14 05:40] LABS: WBC 15.8 10x3/uL (4.8-10.8)
[2016-12-14 05:55] LABS: CALCIUM 7.5 mg/dL (8.5-10.1); CARBON DIOXIDE 20.6 mmol/L (21.0-32.0); MAGNESIUM - SERUM 1.7 mg/dL (1.8-2.4); POTASSIUM - SERUM 3.6 mmol/L (3.5-5.1)
--- NOTE | 2016-12-14 07:26 | NUR ---
AM ROUNDS - PT IS AWAKE. 1ST STEP OVERLAY BED. DAUGHTER AT BEDSIDE. RIGHT FA, NS AT KVO (10). PT IS LEFT ARM RESERVE. CONTACT ISO. DSG TO RIGHT FOOT. BED AT LOWEST POSITION, CALL ROSE IN USE/REACH, SIDE RAILS UP X2. NO FUTHER NEEDS AT THIS TIME. WILL CONTINUE TO MONITOR
[2016-12-14 08:00] VITALS: BP 145/61
[2016-12-14 12:00] VITALS: BP 138/63
--- NOTE | 2016-12-14 12:38 | NUR ---
Nutrition follow-up: Diet: Regular mechanical soft PO intake ~25% of meals Labs reviewed +C.Diff PO intake continues to be poor RDN will order Nepro with meals Following.
[2016-12-14 16:00] VITALS: BP 133/64
[2016-12-14 16:00] LABS: CALCIUM 7.1 mg/dL (8.5-10.1)
[2016-12-14 16:01] LABS: ANION GAP 10.5 mmol/L (8-16); CARBON DIOXIDE 26.2 mmol/L (21.0-32.0); CREATININE - SERUM 2.8 mg/dL (0.6-1.3)
[2016-12-14 16:02] LABS: POTASSIUM - SERUM 2.7 mmol/L (3.5-5.1)
[2016-12-14 20:00] VITALS: BP 131/52
--- NOTE | 2016-12-14 20:10 | NUR ---
PT RESTIN ON RIGHT SIDE WITH A PILLOW BEHIND HER BACK AND FEET ARE RAISE SO HEELS ARE NOT TOUCHING. FAMILY IS AT BEDSIDE AND PT IS CHANGED AND CLEANED. A PROTECTION BANDAGE IS APPLIED TO RIGHT UPPER COCCYX WHERE A SMALL PRESSURE ULCER IS LOCATED. GIULIA CREAM AND EPI FOAM APPLIED TO NEEDED AREAS. A LARGE LOOSE BM WAS CLEANED AND MEDS WERE GIVEN PT ROLLED TO LEFT SIDE WITH PILLOW BEHIND HER BACK AND LEGS ELEVATED WITH HEELS NOT TOUCHING. BED IS LOW AND CALL LIGHT IN REACH. NO S/S OF DISTRESS WILL CONTINUE TO MONITOR.
[2016-12-15] VITALS: BP 147/68
--- NOTE | 2016-12-15 02:14 | NUR ---
FAMILY AT BEDSIDE PT ASLEEP EASILY AROUSED. PT STILL ON LEFT SIDE. PT DENIES ANY NEEDS. BEDLOW. CALLLIGHT WITHIN REACH. NO S/S OF DISTRESS WILL CONTINUE TO MONITOR
[2016-12-15 04:00] VITALS: BP 109/63
--- NOTE | 2016-12-15 04:37 | NUR ---
PT ASLEEP. LAYING ON RIGHT SIDE. FAMILY AT BEDSIDE. RESPIRATIONS EVEN AND UNLABORED. NO S/S OF DISTRESS WILL CONTINUE TO MONITOR
--- NOTE | 2016-12-15 05:08 | NUR ---
PT C/O PAIN IN FEET 03/02. STATES IS NEUROPATHY PAIN. ULTRAM GIVEN. PT DENIES WANTING ANY TYLENOL. FAMILY STILL AT BEDSIDE. BEDLOW AND CALLLIGHT WITHIN REACH. WILL CONTINUE TO MONITOR.
[2016-12-15 05:30] LABS: BASOPHILS 0.1 % (0-2); EOSINOPHILS 0.7 % (0-7); HEMATOCRIT 35.1 % (36.0-48.0); HEMOGLOBIN 11.8 g/dL (12-16); IMMATURE GRANULOCYTES 0.7 % (0-5); LYMPHOCYTES 11.4 % (15-50); MCH 30.3 pg (26.0-34.0); MCHC 33.6 g/dL (31.0-37.0); MONOCYTES 8.8 % (2-11); NEUTROPHILS 78.3 % (40-80); PLATELET COUNT 266 10x3/uL (130-400); RDW 15.3 % (11.5-14.5); WBC 13.1 10x3/uL (4.8-10.8)
[2016-12-15 05:49] LABS: ANION GAP 11.2 mmol/L (8-16); CALCIUM 7.3 mg/dL (8.5-10.1); CARBON DIOXIDE 26.5 mmol/L (21.0-32.0); CREATININE - SERUM 2.8 mg/dL (0.6-1.3); MAGNESIUM - SERUM 1.8 mg/dL (1.8-2.4)
--- NOTE | 2016-12-15 05:54 | NUR ---
PT ASLEEP. AROUSES TO TOUCH AND SPEECH. FAMILY AT BEDSIDE. RESPIRATIONS EVEN AND UNLABORED. NO S/S OF DISTRESS WILL CONTINUE TO MONITOR
[2016-12-15 06:07] LABS: POTASSIUM - SERUM 2.7 mmol/L (3.5-5.1)
--- NOTE | 2016-12-15 06:20 | NUR ---
PT POTASSIUM IS 2.7, SAME YESTURDAY. RENAL DOCTOR NOT PAGED R/T THEY ARE MAKING ROUNDS WITHIN THE NEXT HOUR.WILL TALK TO DOCTOR THEN
[2016-12-15 08:00] VITALS: BP 122/61
--- NOTE | 2016-12-15 10:16 | NUR ---
Wound care consult: Pt has a history of skin breakdown and her family continues to work diligently to prevent anything further . Bilateral heels are scarred - left heel has thick peeling skin with pink skin underneath. Right heel has a 3cm x 3cm area (unstageable). There is a 1cm x 1cm x black escar in center. Family uses betadine on the area daily and pads with 4x4s and kerlix. No odor, drainage, redness or edema is noted. Pt does c/o of tenderness at times. Right coccyx area 3cm x 1.5cm x 0.1cm (stage 2). Wound bed is red with peeling edges. No drainage noted and no odor. This is being protected with cushioned dressing as is sacral area d/t bony prominence (pt c/o tenderness). She has been placed on an air overlay mattress and is being repositioned every 2 hours and her heels are bridged. She is having diarrhea and skin care is being performed as needed with each incontinent episode. Calmoseptine cream is being applied to protect periarea skin from moisture. Wound care will continue monitoring.
[2016-12-15 12:00] VITALS: BP 149/72
[2016-12-15 15:19] LABS: ANION GAP 12.7 mmol/L (8-16); CALCIUM 7.3 mg/dL (8.5-10.1); CARBON DIOXIDE 24.4 mmol/L (21.0-32.0); CREATININE - SERUM 3.1 mg/dL (0.6-1.3); POTASSIUM - SERUM 3.1 mmol/L (3.5-5.1)
[2016-12-15 16:00] VITALS: BP 135/49
[2016-12-15 19:00] VITALS: BP 163/79
[2016-12-16] VITALS: BP 126/61
--- NOTE | 2016-12-16 00:51 | NUR ---
NURSE ROUNDS 22:00 - PT LYING IN BED, AWAKE, ALERT, DAUGHTER AT BEDSIDE. PT WAS COOPERATIVE AND TOOK ALL HER PO MEDS WITHOUT ANY DIFFICULTY AND ATE A CHOCOLATE PUDDING FOR A SNACK. PT DENIED ANY NEEDS. CONTINUE TO MONITOR CLOSELY.
[2016-12-16 04:00] VITALS: BP 168/74
--- NOTE | 2016-12-16 04:48 | NUR ---
PT RESTING COMFORTABLY, DAUGHTER AT BEDSIDE, EASILY ROUSABLE TO VERBAL STIMULI, CONTINUE TO MONITOR CLOSELY.
[2016-12-16 05:31] LABS: BASOPHILS 0.2 % (0-2); EOSINOPHILS 0.6 % (0-7); HEMATOCRIT 35.7 % (36.0-48.0); HEMOGLOBIN 11.7 g/dL (12-16); IMMATURE GRANULOCYTES 0.6 % (0-5); LYMPHOCYTES 9.1 % (15-50); MCHC 32.8 g/dL (31.0-37.0); MCV 91.5 fL (80.0-100.0); MEAN PLATELET VOLUME 9.1 fL (7.4-10.4); MONOCYTES 11.5 % (2-11); PLATELET COUNT 277 10x3/uL (130-400); RDW 15.4 % (11.5-14.5); WBC 12.4 10x3/uL (4.8-10.8)
[2016-12-16 05:55] LABS: CALCIUM 7.1 mg/dL (8.5-10.1); CREATININE - SERUM 3.3 mg/dL (0.6-1.3); MAGNESIUM - SERUM 1.8 mg/dL (1.8-2.4)
--- NOTE | 2016-12-16 07:16 | NUR ---
PT SITTING UP IN BED SLEEPING RR EVEN AND UNLABORED. NO S/S DISTRESS NOTED. FAMILY MEMBER ASLEEP AT BEDSIDE. WILL CONT TO MONITOR
[2016-12-16 08:24] VITALS: BP 129/60
[2016-12-16 12:12] VITALS: BP 150/79
[2016-12-16 15:37] LABS: ANION GAP 12.7 mmol/L (8-16); CALCIUM 7.5 mg/dL (8.5-10.1)
[2016-12-16 15:38] LABS: CREATININE - SERUM 2.3 mg/dL (0.6-1.3); POTASSIUM - SERUM 3.7 mmol/L (3.5-5.1)
[2016-12-16 16:27] VITALS: BP 148/62
--- NOTE | 2016-12-16 18:00 | NUR ---
pt sitting up in bed with daughter at bedside. no s/s distress noted
[2016-12-16 19:00] VITALS: BP 158/87
--- NOTE | 2016-12-16 19:16 | NUR ---
RECEIVED REPORT, WILL ASSUME CARE OF PT, DENIES ANY NEEDS, DAUGHTER AT BEDSIDE, BED IS LOW, SRX2, CALL LIGHT IN REACH, WILL CONTINUE PLAN OF CARE
[2016-12-17] VITALS: BP 157/73
--- NOTE | 2016-12-17 02:01 | NUR ---
ASSESSMENT COMPLETE, PT SLEEPING, BED IS LOW, SRX2, CALL LIGHT IN REACH, DAUGHTER AT BEDSIDE, WILL CONTINUE PLAN OF CARE
[2016-12-17 05:21] LABS: BASOPHILS 0.3 % (0-2); EOSINOPHILS 0.5 % (0-7); HEMATOCRIT 32.7 % (36.0-48.0); HEMOGLOBIN 10.9 g/dL (12-16); IMMATURE GRANULOCYTES 0.8 % (0-5); LYMPHOCYTES 10.7 % (15-50); MCH 30.4 pg (26.0-34.0); MCHC 33.3 g/dL (31.0-37.0); MCV 91.1 fL (80.0-100.0); MEAN PLATELET VOLUME 9.3 fL (7.4-10.4); NEUTROPHILS 75.7 % (40-80); PLATELET COUNT 266 10x3/uL (130-400); RBC 3.59 10x6/uL (4.00-5.40); RDW 15.4 % (11.5-14.5); WBC 11.5 10x3/uL (4.8-10.8)
[2016-12-17 05:42] LABS: ANION GAP 12.1 mmol/L (8-16); CALCIUM 7.1 mg/dL (8.5-10.1); CARBON DIOXIDE 25.1 mmol/L (21.0-32.0); CREATININE - SERUM 2.8 mg/dL (0.6-1.3); MAGNESIUM - SERUM 1.6 mg/dL (1.8-2.4); POTASSIUM - SERUM 3.2 mmol/L (3.5-5.1)
--- NOTE | 2016-12-17 07:18 | NUR ---
PT SITTING UP IN BED WITH DAUGHTER AT BEDSIDE FEEDING HER. BOTH DENY ANY NEEDS AT THIS TIME WILL CONT TO MONITOR
[2016-12-17 09:18] VITALS: BP 170/70
[2016-12-17 12:35] VITALS: BP 122/55
--- NOTE | 2016-12-17 13:42 | NUR ---
PT DAUGHTER EXPRESSED CONCERNS ABOUT HER MOTHER NOT BEING ON FOLLOWING MEDICATION WHILE IN THE HOSPITAL: PLAVIX, ZANTAC, ZOCOR. COULD NOT FIND ANYTHING IN CHART EXPLAINING WHY DR DID NOT RESTART MEDICATION. PAGED RENAL ENFORCEMENT OFFICER TO FIND OUT IF CAN BE RESTARTED.
--- NOTE | 2016-12-17 14:18 | NUR ---
Patient Name: JUAN LAMB Admission Status: Elective Accout number: [id number] Admission Date: 12-10-2016 : 1940 Admission Diagnosis:ENTEROCOLITIS DUE TO CLOSTRIDIUM DIFFICILE Attending: CANDACE Current LOS: 7 Anticipated DC Date: 12-18-2016 Planned Disposition: Home Primary Insurance: MEDICARE A & B Discharge Planning Comments: * Is the patient Alert and Oriented? Yes 0 * How many steps to enter\exit or inside your home? RAMP 0 * PCP DR. JULISA MACK ([phone]) 0 * Pharmacy [facility] IN [place] 0 * Preadmission Environment Home with Family 0 * ADLs Total Dependent 0 * Equipment Bedside Commode Glucometer Hospital Bed Nebulizer Oxygen Shower Chair Wheelchair 0 * Other Equipment [facility] ([phone]) 0 * List name and contact numbers for known caregivers / representatives who currently or will assist patient after discharge: RUDDY ISLAS, daughter, 0 * Community resources currently utilized OTHER 0 * Please name any agencies selected above. OUTPATIENT DIALYSIS, [place], M/W/F, 1145, [facility] WITH W/C LIFT, FAMILY MEMBER ATTENDANT 0 * Additional services required to return to the preadmission environment? No 0 * Can the patient safely return to the preadmission environment? Yes 0 * Has this patient been hospitalized within the prior 30 days at any hospital? No 0 CM MET WITH PT IN ROOM TO DISCUSS DISCHARGE PLANNING AND NEEDS. PT SLEEPING THROUGHOUT ASSESSMENT, PT'S DAUGHTER, RUDDY ISLAS PARTICIPATED; RUDDY REPORTS PT LIVES AT HOME AND IS NOW TOTALLY DEPENDENT ON FAMILY MEMBERS THAT ARE WITH PT SEAWEED HARVESTER. PT HAS ALL NEEDED MEDICAL EQUIPMENT FROM [facility] IN [place]. PT'S HOME HEALTH HAS DISCHARGED PT AND THEY HAVE NO OUTSIDE SERVICES ASSISTING IN THE HOME. CM DISCUSSED AVAILABILITY OF HOME HEALTH, REHAB SERVICES AND MEDICAL EQUIPMENT. PT'S DAUGHTER DENIES DISCHARGE NEEDS, ASKED CM TO SEE IF SHE CAN GET PT AN AIR MATTRESS FOR HOME USE, THEY ARE NOW ON A GEL OVERLAY AT HOME. DAUGHTER REPORTS PT WILL HAVE TO TRANSPORT VIA AMBULANCE. PT GOES TO [facility] [facility] ON M/W/F SCHEDULE AT 1145, [facility] TRANSPORTS. PT'S DAUGHTER IN AGREEMENT [facility] DISCHARGE PLAN FOR HOME TOMORROW, IMPORTANT MESSAGE FROM MEDICARE PROVIDED AND EXPLAINED. CM CALLED [facility], SPOKE TO HANH WHO REPORTS IT WOULD BE BEST FOR FAMILY TO GO THROUGH [facility], WHERE PT'S PRESENT HOSPTIAL BED AND MATTRESS ARE FROM. CM CALLED [facility] IN [place], , SPOKE TO KYREE WHO REPORTED THAT PT WOULD HAVE TO HAVE AT LEAST TWO STAGE 2 OR GREATER WOUNDS ON HER TORSO TO QUALIFY FOR AIR MATTRESS FOR INSURANCE TO PAY. CM NOTIFIED PT'S DAUGHTER. PT TO DISCHARGE HOME VIA AMBULANCE. Receiving Worker: Jules Burrows
--- NOTE | 2016-12-17 14:28 | NUR ---
RENAL PAGED AGAIN
--- NOTE | 2016-12-17 14:59 | NUR ---
Nutrition Follow Up: Pt is eating 75% meal avg on a regular mech soft diet. She is receiving Nepro TID. Noted pt with CDT but diarrhea is improving. Wt changes noted. +BM 12/16/16. Labs reviewed - Glucose elevated. Meds noted including Humalog, Flagyl, Lantus. Rec continue current diet. RD following.
[2016-12-17 16:07] LABS: ANION GAP 10.7 mmol/L (8-16); CALCIUM 7.2 mg/dL (8.5-10.1); CARBON DIOXIDE 25.6 mmol/L (21.0-32.0); CREATININE - SERUM 2.9 mg/dL (0.6-1.3); POTASSIUM - SERUM 3.3 mmol/L (3.5-5.1)
[2016-12-17 16:17] VITALS: BP 116/50
--- NOTE | 2016-12-17 17:10 | NUR ---
PT SITTING UP IN BED EATING DINNER DAUGHTER AT BEDSIDE FEEDING HER. DENIES ANY NEEDS WILL CONT TO MONITOR
--- NOTE | 2016-12-17 19:20 | NUR ---
RECEIVED REPORT, WILL ASSUME CARE OF PT, PT SLEEPING, DAUGHTER AT BEDSIDE, DENIES ANY NEEDS AT THIS TIME, BED IS LOW, SRX2, CALL LIGHT IN REACH, WILL CONTINUE PLAN OF CARE
--- NOTE | 2016-12-17 19:54 | NUR ---
REAL ESTATE CLERK AT BEDSIDE TO OBTAIN VITALS, CALL LIGHT IN REACH. WILL CONTINUE WITH PLAN OF CARE.
[2016-12-17 20:00] VITALS: BP 125/59
--- NOTE | 2016-12-18 01:39 | NUR ---
ASSESSMENT COMPLETE,SEE FLOW SHEET, PT SLEEPING , BED IS LOW, SRX2, CALL LIGHT IN REACH, WILL CONTINUE PLAN OF CARE, DAUGHTER AT BED SIDE
[2016-12-18 05:19] LABS: ANION GAP 13.3 mmol/L (8-16); CALCIUM 7.4 mg/dL (8.5-10.1); CARBON DIOXIDE 24.2 mmol/L (21.0-32.0); CREATININE - SERUM 3.2 mg/dL (0.6-1.3); POTASSIUM - SERUM 3.5 mmol/L (3.5-5.1)
[2016-12-18 06:09] LABS: BASOPHILS 0.2 % (0-2); EOSINOPHILS 0.8 % (0-7); HEMOGLOBIN 10.5 g/dL (12-16); IMMATURE GRANULOCYTES 0.5 % (0-5); LYMPHOCYTES 9.7 % (15-50); MCH 29.9 pg (26.0-34.0); MCHC 32.8 g/dL (31.0-37.0); MCV 91.2 fL (80.0-100.0); MEAN PLATELET VOLUME 9.4 fL (7.4-10.4); MONOCYTES 10.7 % (2-11); NEUTROPHILS 78.1 % (40-80); PLATELET COUNT 310 10x3/uL (130-400); RBC 3.51 10x6/uL (4.00-5.40); RDW 15.8 % (11.5-14.5); WBC 10.4 10x3/uL (4.8-10.8)
[2016-12-18 07:31] VITALS: BP 138/62
--- NOTE | 2016-12-18 07:51 | NUR ---
PT IN BED AWAKE AND ALERT WITH FAMILY AT BEDSIDE PROVIDED [facility] COWLITZ PER REQUEST DENIES FURTHER NEEDS AT THIS TIME WILL CONTINUE TO MONITOR
--- NOTE | 2016-12-18 09:44 | NUR ---
PT SITTING UP IN BED WITH DAUGHTER AT BEDSIDE. DIALYSIS IN PROGRESS. WILL CONT TO MONITOR
[2016-12-18] MEDS ORDERED: VANCOMYCIN250 MG/51 PO (10:18)
[2016-12-18] MEDS ORDERED: FLAGYL500 MG PO (10:19)
[2016-12-18] MEDS ORDERED: TENORMIN50 MG PO (10:20)
[2016-12-18] MEDS ORDERED: ULTRAM50 MG PO (10:21)
[2016-12-18] MEDS ORDERED: CREON (PANCRELI1 CAP PO (10:22)
[2016-12-18] MEDS ORDERED: LACTINEX GRANUL1 PCK PO (10:23)
[2016-12-18] MEDS ORDERED: PEPCID20 MG PO (10:23)
[2016-12-18 12:39] VITALS: BP 146/57
--- NOTE | 2016-12-18 15:18 | NUR ---
PT LEFT FLOOR VIA LIFENET AFTER RECEIVING DISCHARGE INSTRUCTIONS. PT AND DAUGHTER VERBALIZE UNDERSTANDING.
--- NOTE | 2016-12-18 17:59 | NUR ---
PT DAUGHTER CALLED AND SAID THAT PHARMACY NEEDS VERIFICATION ON MEDICATIONS. CALLED PHARMACY AND SPOKE WITH YARELY PHARMACIST. SHE WENT OVER MEDICATION VANC ORDERS AND I REPEATED THAT THEY WERE CORRECT ETC. GOING BY DISCHARGE SUMMARY STATED EXACT AMOUNT/FOR HOW LONG ETC. SHE STATED THAT SHE STILL NEEDED TO SPEAK WITH THE PROVIDER TO FILL MEDS. PAGED MERLY CARDENAS CLINICAL TEAM MANAGER TO VERIFY MEDICATION TO PHARMACIST
== END 2016-12-18 15:21 | disposition home or self-care (01) | DRG 871 ==
LOC: D.M2 00:25
PROVIDERS: Internal Medicine Nephrology; ADMIT Emergency Medicine
PROC: 5A1D60Z (ICD-10-PCS; principal; 2016-12-11)
DX: A41.9 Sepsis, unspecified organism (principal); N18.6 End stage renal disease; A04.7 Enterocolitis due to Clostridium difficile; I12.0 Hypertensive chronic kidney disease with stage 5 chronic kidney disease or end stage renal disease; E11.22 Type 2 diabetes mellitus with diabetic chronic kidney disease; D63.1 Anemia in chronic kidney disease; E87.6 Hypokalemia; Z86.73 Personal history of transient ischemic attack (TIA), and cerebral infarction without residual deficits; Z87.891 Personal history of nicotine dependence

== ENCOUNTER 2017-01-27 17:30 | Inpatient (IN) | payer MEDICARE ==
[~2017-01-27] VITALS: Ht 167.6 cm; Wt 50.8 kg
--- NOTE | ~2017-01-27 | DS ---
PATIENT:JUAN LAMB :40 MEDICAL RECORD: [id number] DISCHARGE SUMMARY ADMISSION DATE: 01/27/17 DISCHARGE DATE: 02/02/17 REASON FOR ADMISSION: Recurrent Clostridium difficile colitis. HOSPITAL COURSE: This is a nice 76-year-old female, contracted and is cared for by her family members 14/12, presented with loose stools. She had another positive C. diff. and is failing therapy. GI was consulted. She is to take vancomycin orally for a total of 21 days. I did continue her Flagyl as well at 250 mg b.i.d. for 21 days and arranging followup for stool transplantation. PHYSICAL EXAMINATION: On discharge, vital signs are stable. She is afebrile. Mental status is above her baseline and she is actually verbal with me at times. HOME MEDICATIONS: We will continue metronidazole 250 b.i.d. for a total of 21 days, Pepcid 20 b.i.d., atenolol 100 a day, vancomycin 250 q.i.d. for 21 days, Acidophilus daily, amlodipine 10 a day, Nystatin swish and swallow 5 mg q.i.d. p.r.n. for 5 days, Silvadene cream topically p.r.n., Plavix 75 a day, Creon 1 tab with meals t.i.d., simvastatin 20 at night, timolol 1 drop to each eye, insulin sliding scale, tramadol 50 q.6 hours p.r.n. pain, clonidine 0.1 q.6 p.r.n. elevated blood pressure. PLAN: She will follow up at dialysis. Continue with renal ADA diet, cared for by her family and to return in the Emergency Room for any problems. Follow up at the [facility] Dialysis, Mondays, Wednesdays and Fridays. DISPOSITION: Stable on discharge. TRANSINT:[id number] Voice Confirmation ID: [id number] DOCUMENT ID: [id number] DARRELL BELTRAN MD CC: [id number] DICTATION DATE: 02/02/17801 SLAG EXPANDER: 02/02/172224 DIS IN 02/02/17 [facility] [address] [place] [address]
[~2017-01-27 17:30] MED LIST changes: +CREON (PANCRELI1 CAP PO; +LACTINEX GRANUL1 PCK PO; +PEPCID20 MG PO; +ULTRAM50 MG PO
[2017-01-27 17:45] VITALS: BP 137/55; BMI 18.1
--- NOTE | 2017-01-27 18:14 | NUR ---
ASSESSMENT DONE, PATIENT ORIENTED X 3 AT THIS TIME. PATIENT HAS A R HAND IV THAT IS SL AT THIS TIME. L AVF NOTED, BRUIT AND THRILL PRESENT. CLEAR BREATH SOUNDS. PATIENT DENIES ANY PAIN AT THIS TIME. DAUGHTER AT BEDSIDE. DENIES ANY NEEDS. WILL CONT TO MONITOR.
[2017-01-27] MEDS ORDERED: NORVASC10 MG PO (18:17)
[2017-01-27 18:55] LABS: HEMATOCRIT 26.9 % (36.0-48.0); HEMOGLOBIN 8.6 g/dL (12-16); MCH 30.9 pg (26.0-34.0); MCV 96.8 fL (80.0-100.0); MEAN PLATELET VOLUME 8.7 fL (7.4-10.4); PLATELET COUNT 279 10x3/uL (130-400); RBC 2.78 10x6/uL (4.00-5.40); RDW 15.6 % (11.5-14.5); WBC 32.6 10x3/uL (4.8-10.8)
[2017-01-27 18:58] LABS: BILIRUBIN - TOTAL 0.42 mg/dL (0.2-1.3); CALCIUM 7.1 mg/dL (8.5-10.1); CARBON DIOXIDE 25.5 mmol/L (21.0-32.0); CREATININE - SERUM 2.8 mg/dL (0.6-1.3); MAGNESIUM - SERUM 1.5 mg/dL (1.8-2.4); PHOSPHOROUS 2.6 mg/dL (2.5-4.9)
[2017-01-27 19:00] VITALS: BP 169/74
[2017-01-27 19:02] LABS: ANION GAP 14.7 mmol/L (8-16)
[2017-01-27 19:05] LABS: POTASSIUM - SERUM 2.2 mmol/L (3.5-5.1)
[2017-01-27 19:21] LABS: LYMPHOCYTES 5 % (15-50); NEUTROPHILS 95 % (40-80); PLATELET ESTIMATE NORMAL
--- NOTE | 2017-01-27 23:48 | NUR ---
NURSE ROUNDS 21:40 - PT LYING IN BED, DEMONSTRATES LETHARGY/GENERALIZED WEAKNESS. FSBS CHECKED WAS 52. PT WAS ABLE TO EAT 1 CONTAINER OF APPLESAUCE, AND 240MLS OF CRANBERY JUICE, AND 1 120CC CARTON OF VANILLA ICE CREAM. PT DEMONSTRATES GREAT DIFFICULTY WITH SWALLOWING WHOLE PILLS, SO ALL MEDS NEED TO BE CRUSHED AND GIVEN WITH APPLESAUCE. FAMILY AT BEDSIDE, DENIES ANY NEEDS. CONTINUE TO MONITOR PT CLOSELY. BED LOW, CALL LIGHT IN REACH, SIDE RAILS X 2, HOB 30 DEGREES.
[2017-01-28 01:15] VITALS: BP 150/67
--- NOTE | 2017-01-28 04:22 | NUR ---
PT RESTING COMFORTABLY, ROUSABLE TO GENTLE TOUCH, DAUGHTER REMAINS AT BEDSIDE. FSBS IS 142. NO NEEDS AT THIS TIME. CONTINUE TO MONITOR PT CLOSELY. BED LOW, CALL LIGHT IN REACH, SIDE RAILS X 2, HOB 20 DEGREES.
--- NOTE | 2017-01-28 07:47 | NUR ---
AM ROUNDS - PT IS IN BED AND AWAKE AT THIS TIME WITH DAUGHTER AT BEDSIDE. BED AT LOWEST POSITION. CALL ROSE IN USE/REACH. SIDE RAILS UP X2. IV TO RIGHT HAND, 1/2 NS AT KVO. PT IS ON ENTERIC ISOLATION. PT IS A LEFT ARM RESERVE, AVF. NO NEEDS AT THIS TIME. WILL CONTINUE TO MONITOR
[2017-01-28 08:00] VITALS: BP 153/69
[2017-01-28 09:15] VITALS: Ht 167.6 cm; Wt 50.8 kg
[2017-01-28 12:00] VITALS: BP 143/62
--- NOTE | 2017-01-28 15:19 | NUR ---
Wound care consult: Pt has a history of pressure injuries on her heels and sacrum. Right heel is a 2cm x 2cm scarred area and on the top of the right foot is a 2cm x 2cm scabbed area. Current treatment is betadine to both areas, cover with 4x4s and secure with kerlix. This has been working well for the pt so I recommend continuing the betadine. There is a pink area on sacrum that measures 3cm x 2cm. It is where a pressure injury has healed. This area is very susceptible to breaking down again. The family actually healed this wound by using silvadene cream and they continue to apply it. Recommend continuing the same. The pt has been placed on an air overlay mattress. She is totally dependent on others for her care. She needs to be turned q2h while awake and her heels kept elevated. Wound care will continue to monitor.
[2017-01-28 16:00] VITALS: BP 163/73
--- NOTE | 2017-01-28 18:10 | NUR ---
PT'S DAUGHTER DOES NOT WANT SCD ON PT AT THIS TIME.
[2017-01-28 19:00] VITALS: BP 150/64
--- NOTE | 2017-01-28 19:51 | NUR ---
PT RESTING COMFORTABLY IN BED, DAUGHTER AT BEDSIDE, NO NEEDS AT THIS TIME. PT IS AWAKE AND ALERT. CONTINUE TO MONITOR CLOSELY. BED LOW, CALL LIGHT IN REACH, SIDE RAILS X 2, HOB 20 DEGREES, 1ST STEP OVERLAY, SCD'S.
--- NOTE | 2017-01-28 21:23 | NUR ---
PTS IV IN RIGHT HAND HAS OCCLUDED AND INFILTRATED PRIOR TO THIS SHIFT. WILL RESITE. IV REMOVED WITH CATH TIP INTACT. CONTINUE TO MONITOR CLOSELY.
--- NOTE | 2017-01-28 21:39 | NUR ---
PT HAS SEVERE THRUSH ON HER TONGUE. I CALLED THE AFTER HOURS ON LINE ANSWERING SERVICE, AND ASKED FOR THE NURSE PRACTITIONER TO RETURN MY CALL. THE ANSWERING SERVICE STATED IT WAS MERLY CARDENAS INGOT HEADER. I ASKED AGAIN TO MAKE SURE THEY PAGED THE NURSE INGOT HEADER. DR. TURNER CALLED BACK. HE DID AUTHORIZE NYSTATING SWISH AND SWALLOW Q 6 HOURS. 1ST DOSE GIVEN. CONTINUE TO MONITOR CLOSELY.
[2017-01-29] VITALS: BP 145/88
--- NOTE | 2017-01-29 03:29 | NUR ---
PT RESTING COMFORTABLY, EASILY ROUSABLE TO VERBAL STIMULI, DAUGHTER IN CHAIR AT BEDSIDE. NO NEEDS AT THIS TIME. CONTINUE TO MONITOR PT CLOSELY. BED LOW, CALL LIGHT IN REACH, SIDE RAILS X 2, HOB 20 DEGREES.
[2017-01-29 04:00] VITALS: BP 168/78
[2017-01-29 05:57] LABS: BASOPHILS 0.1 % (0-2); EOSINOPHILS 0.2 % (0-7); HEMATOCRIT 27.3 % (36.0-48.0); IMMATURE GRANULOCYTES 0.8 % (0-5); LYMPHOCYTES 3.4 % (15-50); MCV 94.1 fL (80.0-100.0); MEAN PLATELET VOLUME 8.8 fL (7.4-10.4); MONOCYTES 3.8 % (2-11); NEUTROPHILS 91.7 % (40-80); PLATELET COUNT 368 10x3/uL (130-400); RDW 15.6 % (11.5-14.5); WBC 33.3 10x3/uL (4.8-10.8)
[2017-01-29 06:15] LABS: ALBUMIN 2.1 g/dL (3.4-5.0); BILIRUBIN - TOTAL 0.56 mg/dL (0.2-1.3); CALCIUM 7.6 mg/dL (8.5-10.1); CARBON DIOXIDE 21.5 mmol/L (21.0-32.0); CREATININE - SERUM 3.4 mg/dL (0.6-1.3); PROTEIN - SERUM 6.6 g/dL (6.4-8.2)
[2017-01-29 07:02] LABS: ANION GAP 18.2 mmol/L (8-16); PHOSPHOROUS 3.6 mg/dL (2.5-4.9)
[2017-01-29 07:03] LABS: POTASSIUM - SERUM 2.7 mmol/L (3.5-5.1)
--- NOTE | 2017-01-29 07:30 | NUR ---
RECIEVED REPORT ON PATIENT. PATIENT DAUGHTER IS AT BEDSIDE. BREATH SOUNDS CLEAR, AND DIMINISHED IN LOWER LOBES. PATIENT HAS A FISTULA WITH BRUIT AND THRILL PRESENT. S1S2 HEART SOUNDS NOTED. DENIES ANY NEEDS OR PAIN, FAMILY DENIES NEEDS. WILL CONT TO MONITOR PATIENT. CPOC
[2017-01-29 08:00] VITALS: BP 178/102
--- NOTE | 2017-01-29 08:30 | NUR ---
SPOKE WITH DUNCAN MCCLAIN REGARDING PATIENT CRITICAL POTASSSIUM OF 2.7. SHE ORDERED TO GIVE 40 MEQ OF POTASSIUM PO. WILL GIVE. CPOC
--- NOTE | 2017-01-29 09:00 | NUR ---
SPOKE WITH DUNCAN REGARDING PATIENT BP BEING 178/105, DICUSSED THAT SHE HAD CLONDINE ORDERED, BUT PATIENT HAS DIAYLSIS TODAY, DUNCAN STATED NOT TO GIVE CLONIDINE AND THAT SHE WOULD RESTART HOME MEDICATION. CPOC
--- NOTE | 2017-01-29 09:46 | NUR ---
EPIGEN 1ML GIVEN SQ TO RIGHT ARM - EPIGEN 1ML GIVEN TO RIGHT MID ABDOMINAL SQ. DAUGHTER AT BEDSIDE. TOLERATED WELL
--- NOTE | 2017-01-29 10:26 | NUR ---
Patient Name: JUAN LAMB Admission Status: Elective Accout number: [id number] Admission Date: 01-27-2017 : 1940 Admission Diagnosis:ENTEROCOLITIS DUE TO CLOSTRIDIUM DIFFICILE Attending: Shen Rubio Current LOS: 2 Anticipated DC Date: Planned Disposition: Home Primary Insurance: MEDICARE A & B LATE ENTRY FROM 01-28-17: Discharge Planning Comments: * Is the patient Alert and Oriented? Yes 0 * How many steps to enter\exit or inside your home? RAMP 0 * PCP DR. JULISA MACK - [phone] 0 * Pharmacy [facility] IN [place] 0 * Preadmission Environment Home with Family 0 * ADLs Total Dependent 0 * Equipment Bedside Commode Glucometer Hospital Bed Nebulizer Oxygen Shower Chair Wheelchair 0 * Other Equipment [facility] - [phone] 0 * List name and contact numbers for known caregivers / representatives who currently or will assist patient after discharge: RUDDYIman ISLAS, R, 0 * Community resources currently utilized Other 0 * Please name any agencies selected above. [facility]YS[facility], [facility] 1145, [facility] WITH W/C LIFT, FAMILY MEMBER ATTENDANT 0 * Additional services required to return to the preadmission environment? No 0 * Can the patient safely return to the preadmission environment? Yes 0 * Has this patient been hospitalized within the prior 30 days at any hospital? No 0 CM MET WITH PT AND DAUGHTER, RUDDY, IN ROOM TO DISCUSS DISCHARGE PLANNING AND NEEDS. PT'S DAUGHTER PARTICIPATED IN ASSESSMENT, REPORTS PT LIVING AT HOME DEPENDENT WITH ADULT DAUGHTER. PT HAS BEDSIDE COMMODE, GLUCOMETER, HOSPTIAL BED, NEBULIZER, OXYGEN, SHOWER CHAIR AND WHEELCHAIR FROM [facility]. PT HAS NO OUTSIDE SERVICES ASSISTING IN THE HOME. PT GOES TO [facility], [facility], 1145, [facility] WITH FAMILY ASSISTANCE. CM DISCUSSED AVAILABILITY OF HOME HEALTH, REHAB SERVICES AND MEDICAL EQUIPMENT. PT'S DAUGHTER DENIES DISCHARGE NEEDS AT THIS TIME, WILL THINK ABOUT HOME HEALTH BUT FEELS THAT FAMILY TAKES CARE OF FAMILY WITH NO NEED OF HOME HEALTH, REPORTS PT WILL NEED AMBULANCE FOR DISCHARGE HOME. CM SPOKE TO DR. RUBIO WHO REPORTS HE WILL ORDER LIFT FOR LIFTING ASSISTANCE OF PT AT HOME. CM RECEIVED ORDER FOR LIFT FOR HOME USE, CALLED [facility] IN [place], , SPOKE TO EDU AND FAXED ORDER TO [facility] AT [phone]; [facility] TO ARRANGE HOME DELIVERY OF LIFT WITH FAMILY. CM TO CONTINUE TO FOLLOW AND ASSIST NEEDED. Manager Welding: Jules Burrows
--- NOTE | 2017-01-29 11:44 | NUR ---
Dialysis Coordinator: [facility]: [facility] Dialysis Wed/Wed/Wed @ 11:45. APOORVA COUGHLIN.
[2017-01-29 12:00] VITALS: BP 170/75
--- NOTE | 2017-01-29 12:44 | NUR ---
DR BENÍTEZ AT BEDSIDE. PATIENT DENIES ANY NEEDS. WILL CONT TO MONITOR.
--- NOTE | 2017-01-29 15:30 | NUR ---
PATIENT RECIEVED DIAYLSIS AT BEDSIDE. DAUGHTER AT BEDSIDE. PATIENT DENIES ANY NEEDS. CPOC
--- NOTE | 2017-01-29 16:50 | NUR ---
PATIENT C/O OF NAUSEA. ZOFRAN GIVEN IV. CPOC
--- NOTE | 2017-01-29 18:30 | NUR ---
PATIENT COMPLETED DIAYLSIS. 2.5L WERE TAKEN OFF. VS STABLE. PATIENT RESTING, DAUGHTER DENIES ANY NEEDS. CPOC
--- NOTE | 2017-01-30 00:12 | NUR ---
ASSESSMENT UNCHANGED. VSS, AFEBRILE. RESP EVEN UNLABORED. NO NEEDS VOICED. WILL CONT TO MONITOR.
[2017-01-30 06:30] LABS: ANION GAP 17.6 mmol/L (8-16); CALCIUM 7.6 mg/dL (8.5-10.1); CARBON DIOXIDE 23.7 mmol/L (21.0-32.0); PHOSPHOROUS 3.5 mg/dL (2.5-4.9)
[2017-01-30 06:31] LABS: CREATININE - SERUM 2.5 mg/dL (0.6-1.3); POTASSIUM - SERUM 4.3 mmol/L (3.5-5.1)
[2017-01-30 06:42] LABS: BASOPHILS 0 % (0-2); EOSINOPHILS 0.2 % (0-7); HEMATOCRIT 24.6 % (36.0-48.0); IMMATURE GRANULOCYTES 0.6 % (0-5); LYMPHOCYTES 7.2 % (15-50); MCH 30.5 pg (26.0-34.0); MCHC 32.5 g/dL (31.0-37.0); MCV 93.9 fL (80.0-100.0); MEAN PLATELET VOLUME 8.7 fL (7.4-10.4); MONOCYTES 5.6 % (2-11); NEUTROPHILS 86.4 % (40-80); PLATELET COUNT 306 10x3/uL (130-400); RBC 2.62 10x6/uL (4.00-5.40); RDW 15.6 % (11.5-14.5)
[2017-01-30 08:39] VITALS: BP 155/66
--- NOTE | 2017-01-30 09:54 | NUR ---
Received report, assessed pt, who was reassigned to RN. Daughter in room, isolation precautions reviewed as daughter does not wear isolation gown. Pt is alert at this time, nods head in response to questioning, does not appear to be in any distress or pain. IV rt wrist patent with normal saline at KVO. SCD's in place and operable. Pt has no s/s of hypo- or hyper-glycemia.
--- NOTE | 2017-01-30 09:57 | NUR ---
CALLED TO ROOM BY DAUGHTERS STATING THAT SANDRA SAYS SHE CAN'T BREATH. ON ROOM AIR, O2 SAT IS 90 %. PLACED ON 2L PER NC AND PULLED UP INTO THE BED. PATIENT STATES THAT SHE IS FEELING BETTER NOW.
[2017-01-30 10:21] LABS: % SATURATION 29 % (15-55); IRON 24 ug/dl (35-150); TOTAL IRON BIND CAPACITY 81 ug/dl (260-445); UNSAT IRON BIND CAPACITY 57 ug/dl (150-375)
[2017-01-30 12:20] VITALS: BP 163/69
--- NOTE | 2017-01-30 15:21 | NUR ---
AFTERNOON MEDS GIVEN. DENIES NEEDS AT THIS TIME, DAUGHTER AT BEDSIDE. WILL CONTINUE TO MONITOR.
[2017-01-30 16:00] VITALS: BP 132/54
--- NOTE | 2017-01-30 17:13 | NUR ---
SITTING UP IN THE BED EATING FULL LIQUID SUPPER. CHICKEN SOUP. DAUGHTER AT [facility]. WILL CONTINUE TO MONITOR.
[2017-01-30 19:00] VITALS: BP 117/58
--- NOTE | 2017-01-30 19:36 | NUR ---
RECEIVED REPORT, WILL ASSUME CARE OF PT,PT IS SLEEPING, DAUGHTER AT BEDSIDE, BED IS LOW, SRX2, PT IS ON 1ST. AIR MATTRESS, CALL LIGHT IN REACH, WILL CONTINUE PLAN OF CARE
--- NOTE | 2017-01-30 22:55 | NUR ---
ASSESSMENT COMPLETE, SEE FLOWSHEET, PT SLEEPING, DAUGHTER AT BEDSIDE, WILL CONTINUE PLAN OF CARE
[2017-01-31 05:14] LABS: BASOPHILS 0.1 % (0-2); EOSINOPHILS 0.4 % (0-7); HEMOGLOBIN 8.1 g/dL (12-16); IMMATURE GRANULOCYTES 0.6 % (0-5); LYMPHOCYTES 10.2 % (15-50); MCH 30.3 pg (26.0-34.0); MCHC 32.4 g/dL (31.0-37.0); MCV 93.6 fL (80.0-100.0); MEAN PLATELET VOLUME 8.9 fL (7.4-10.4); MONOCYTES 7.9 % (2-11); NEUTROPHILS 80.8 % (40-80); PLATELET COUNT 346 10x3/uL (130-400); RBC 2.67 10x6/uL (4.00-5.40); RDW 15.6 % (11.5-14.5); WBC 15.9 10x3/uL (4.8-10.8)
[2017-01-31 05:23] LABS: ANION GAP 15.6 mmol/L (8-16); CALCIUM 7.5 mg/dL (8.5-10.1); CARBON DIOXIDE 22.8 mmol/L (21.0-32.0); CREATININE - SERUM 2.9 mg/dL (0.6-1.3); MAGNESIUM - SERUM 1.6 mg/dL (1.8-2.4); PHOSPHOROUS 3.6 mg/dL (2.5-4.9)
[2017-01-31 05:30] LABS: POTASSIUM - SERUM 5.4 mmol/L (3.5-5.1)
--- NOTE | 2017-01-31 07:15 | NUR ---
Received report. Pt alert and oriented with no c/o pain. Family at bedside (daughter), who feeds pt and performs most ADLs. Patent IV to rt wrist/hand. Dressing intact to rt heel (wound care also performed by family).
[2017-01-31 08:26] VITALS: BP 145/65
[2017-01-31 11:58] VITALS: BP 122/58
--- NOTE | 2017-01-31 13:06 | NUR ---
Rt wrist IV infiltrated. FUR EXAMINER unable to site new IV. Spoke with SYNCHRO ASSEMBLER and charge lpn nurse to request further attempt.
--- NOTE | 2017-01-31 13:53 | NUR ---
IV attempted by charge nurse RN, with no results.
--- NOTE | 2017-01-31 14:41 | NUR ---
RN from ICU examined rt arm, unable to find suitable area for IV insertion. ORALIA Cesar paged to iform.
--- NOTE | 2017-01-31 14:42 | NUR ---
At 1435 pts daughter states pt feels she's not breathing with ease, per WEATHERIZATION OPERATIONS MANAGER. O2 sats in low 90's. Oxygen returned to 2L via nasal cannula. Respiratory therapy in room for breathing tx at this time.
--- NOTE | 2017-01-31 14:52 | NUR ---
Per respiratory, pt will recieve PRN breathing tx due to mild expiratory wheezes.
[2017-01-31 15:56] VITALS: BP 138/69
--- NOTE | 2017-01-31 16:29 | NUR ---
Per pt family, Dr. Lopez stated she would review meds due to lack of IV and determine if IV meds can be changed to PO meds. No new orders at this time
--- NOTE | 2017-01-31 16:50 | NUR ---
Pt received 4 units Humalog to abd for FSBS of 204, per family consent. Pt states she will allow family to feed adequate dinner.
--- NOTE | 2017-01-31 16:54 | NUR ---
Spoke with scalehouse attendant again, who will assess pt for IV placement.
--- NOTE | 2017-01-31 17:04 | NUR ---
Responded to family statement "she just doesn't look right". Pt denies pain, denies shortness of breath. O2 sat 93% on oxygen via nasal cannula. Assessed by kiln charger nurse, who assisted to reposition pt in bed. drying and winding supervisor came to assess for IV.
--- NOTE | 2017-01-31 17:15 | NUR ---
cnc supervisor attempted IV with no results. Paged ORALIA Cesar.
--- NOTE | 2017-01-31 17:20 | NUR ---
Spoke to Dr. Snell regarding switching IV meds to PO due to inability to obtain IV. Physician in room to assess pt at this time.
--- NOTE | 2017-01-31 17:27 | NUR ---
Dr. Snell will order CXR after tomorrow's dialysis, and PO Jo, etc.
--- NOTE | 2017-01-31 18:24 | NUR ---
Jo and Suzy administred PO immediatly upon availability, per Dr. Snell request. Assiste pts family to repostion in bed.
--- NOTE | 2017-01-31 19:42 | NUR ---
RECEIVED REPORT, WILL ASSUME CARE OF PT, RECEIVEING DIALYSIS IN ROOM, DAUGHTER AT BEDSIDE, WILL CONTINUE PLAN OF CARE
--- NOTE | 2017-01-31 22:46 | NUR ---
ASSESSMENT COMPLETE, SEE FLOW SHEET, PT SLEEPING, BED IS LOW, SRX2. CALL LIGHT IN REACH, WILL CONTINUE PLAN OF CARE, DAUGHTER AT BEDSIDE
[2017-02-01] VITALS: BP 170/80
[2017-02-01 05:01] LABS: BASOPHILS 0.1 % (0-2); EOSINOPHILS 0.1 % (0-7); HEMATOCRIT 26.3 % (36.0-48.0); HEMOGLOBIN 8.7 g/dL (12-16); IMMATURE GRANULOCYTES 0.9 % (0-5); LYMPHOCYTES 8.9 % (15-50); MCH 30.6 pg (26.0-34.0); MCHC 33.1 g/dL (31.0-37.0); MCV 92.6 fL (80.0-100.0); MEAN PLATELET VOLUME 9.3 fL (7.4-10.4); MONOCYTES 6.6 % (2-11); NEUTROPHILS 83.4 % (40-80); PLATELET COUNT 287 10x3/uL (130-400); RBC 2.84 10x6/uL (4.00-5.40); RDW 15.4 % (11.5-14.5); WBC 15.4 10x3/uL (4.8-10.8)
[2017-02-01 06:59] LABS: CALCIUM 8.4 mg/dL (8.5-10.1); CREATININE - SERUM 3.2 mg/dL (0.6-1.3); PHOSPHOROUS 4.3 mg/dL (2.5-4.9)
[2017-02-01 07:00] LABS: ANION GAP 16.5 mmol/L (8-16); POTASSIUM - SERUM 5.5 mmol/L (3.5-5.1)
--- NOTE | 2017-02-01 07:30 | NUR ---
ROUNDS MADE. PATIENT IS SLEEPING AT THIS TIME. NAD NOTED. 02 SAT 100% ON 3L/MIN VIA NC. DAUGHTER AT BEDSIDE. PATIENT IS ON A FIRST STEP MATTRESS, SCDS ARE ON AT THIS TIME. FAMILY DENIES NEEDS. BED LOW AND LOCKED. CALL LIGHT IN REACH. CPOC
[2017-02-01 08:00] VITALS: BP 161/81
--- NOTE | 2017-02-01 09:15 | NUR ---
MORNING MEDS GIVEN, NO DIFFICULTIES. PATIENT DENIES ANY NEEDS OR PAIN. WILL CONT TO MONITOR
--- NOTE | 2017-02-01 10:28 | NUR ---
Nutrition Follow Up: Pt is eating 15% meal avg on a Renal ADA gastric soft diet. Wt stable. +BM 01/30/17. Meds noted including Flagyl. Labs reviewed. Rec liberalizing diet to encourage po intake. Rec an appetite stimulant. Will continue to provide selective menus and honor food preferences within diet ordered. RD following.
--- NOTE | 2017-02-01 11:45 | NUR ---
PATIENT FSBS 290. 6 UNITS OF HUMALOG GIVEN. PATIENT DENIES ANY NEEDS OR PAIN. DAUGHTER AT BEDSIDE. CPOC
--- NOTE | 2017-02-01 11:50 | NUR ---
Patient Name: JUAN LAMB Encounter No: [id number] : 1940 Primary Insurance: MEDICARE A & B Anticipated DC Date: 02-02-2017 Planned Disposition: Home DCP follow-up note: CM RECEIVED REQUEST TO SEE PT'S DAUGHTER IN ROOM; CM MET WITH JASBIR EVERETT IN ROOM WITH PT. PT SLEEPING THROUGHOUT MEETING. PT'S DAUGHTER REPORTS THAT [employer] HAS CONTACTED HER SISTER TO ARRANGE HOME DELIVERY OF THE LIFT ONCE PT ARRIVES HOME AFTER DISCHARGE. PT'S DAUGHTER WANTED TO KNOW IF INSURANCE WOULD PAY FOR PT'S DRESSING MATERIALS; CM INFORMED DAUGHTER THAT CM WAS AWARE THAT IF HOME HEALTH IS PROVIDING SERVICES, MATERIALS ARE ALSO PROVIDED. JASBIR INFORMED CM THAT THEY WILL CONTINUE TO BUY DRESSING CHANGE MATERIALS AND THAT THEY ARE NOT INTERESTED IN HOME HEALTH SERVICES AT THIS TIME. PT'S DAUGHTER REPORTS PT WILL NEED AMBULANCE TRANSPORT HOME AT DISCHARGE AND WILL SPEAK TO THE DOCTOR ABOUT IT. IMPORTANT MESSAGE FROM MEDICARE PROVIDED AND EXPLAINED. Jules Burrows, CASE MANAGEMENT
[2017-02-01 12:00] VITALS: BP 152/70
--- NOTE | 2017-02-01 13:30 | NUR ---
PATIENT SLEEPING AT THIS TIME. NAD NOTED. DAUGHTER AT BEDSIDE. DENIES ANY NEEDS. WILL MONITOR.
--- NOTE | 2017-02-01 15:00 | NUR ---
DIAYLSIS AT BEDSIDE STARTING DIAYLSIS. CPOC
--- NOTE | 2017-02-01 18:10 | NUR ---
PATIENT FINISH WITH DIAYLSIS. PATIENT IS RESTING AT THIS TIME. DAUGHTER DENIES ANY NEEDS. CPOC
--- NOTE | 2017-02-01 19:30 | NUR ---
RECEIVED REPORT, WILL ASSUME CARE OF PT, PT AND FAMILY DENIES ANY NEEDS, CALL LIGHT IN REACH, CALL LIGHT IN REACH, WILL CONTINUE PLAN OF CARE
[2017-02-02] VITALS: BP 174/74
--- NOTE | 2017-02-02 02:52 | NUR ---
CALL LIGHT IN REACH, WILL CONTINUE WITH PLAN OF CARE.
[2017-02-02 04:00] VITALS: BP 168/76
--- NOTE | 2017-02-02 04:43 | NUR ---
ASSESSMENT COMPLETE, SEE FLOWSHEET, PT SLEEPING, DAUGHTER AT BEDSIDE, CALL LIGHT IN REACH, WILL CONTINUE PLAN OF CARE
[2017-02-02 07:05] LABS: BASOPHILS 0 % (0-2); EOSINOPHILS 0.1 % (0-7); HEMATOCRIT 29.1 % (36.0-48.0); HEMOGLOBIN 9.5 g/dL (12-16); IMMATURE GRANULOCYTES 0.5 % (0-5); LYMPHOCYTES 15.9 % (15-50); MCH 30.7 pg (26.0-34.0); MCHC 32.6 g/dL (31.0-37.0); MCV 94.2 fL (80.0-100.0); MEAN PLATELET VOLUME 9.2 fL (7.4-10.4); MONOCYTES 3.4 % (2-11); NEUTROPHILS 80.1 % (40-80); PLATELET COUNT 281 10x3/uL (130-400); RBC 3.09 10x6/uL (4.00-5.40); RDW 15.7 % (11.5-14.5)
[2017-02-02 07:21] LABS: ANION GAP 15.5 mmol/L (8-16); CALCIUM 7.9 mg/dL (8.5-10.1); CREATININE - SERUM 3.3 mg/dL (0.6-1.3); PHOSPHOROUS 4.5 mg/dL (2.5-4.9)
[2017-02-02 07:24] LABS: POTASSIUM - SERUM 4.5 mmol/L (3.5-5.1)
--- NOTE | 2017-02-02 07:27 | NUR ---
RECIEVED REPORT ON PATIENT, PATIENT IS SLEEPING AT THIS TIME. NAD NOTED AT THIS TIME. PATIENT DAUGHTER AT BEDSIDE. DENIES ANY NEEDS. BED IS LOW AND LOCKED AT THIS TIME. CALL LIGHT IN REACH. CPOC
[2017-02-02] MEDS ORDERED: VANCOMYCIN250 MG/51 PO (07:57)
[2017-02-02] MEDS ORDERED: FLAGYL250 MG PO (07:58)
[2017-02-02] MEDS ORDERED: NYSTATIN ORAL SU5 ML PO (07:58)
[2017-02-02 08:00] VITALS: BP 155/72
--- NOTE | 2017-02-02 09:09 | NUR ---
@ 0867, CALL WAS PLACED TO [facility] IN [place] ([phone]), SPOKE WITH PHARMACIST LEA. QUESTIONED TO IF THEY WOULD BE ABLE TO FILL VANCOMYCIN ORAL SOLUTION 250 MG/5ML PO QID FOR 20 DAYS. SHE STATED THAT THEY DID NOT HAVE THE VANCOMYCIN IN STOCK CURRENTLY, BUT COULD ORDER IT AND HAVE IT BY TOMORROW AND MAKE IT FOR HER. SHE STATED THAT [facility] MAY BE ABLE TO DO IT TODAY IF THEY HAD THE STUFF. SHE STATED THAT THEY OPENED AT 0900, AND NUMBER TO CALL IS [phone]. SHE STATED TO LET HER KNOW IF THEY COULD OR COULD NOT DO IT, THAT SHE WOULD BE GLAD TO ORDER THE VANCOMYCIN AND COMPOUND IT FOR HER. @0902, CALLED [facility] AND SPOKE WITH PHARMACISTJovan, AND SHE STATED THAT THEY DID NOT HAVE THE STUFF AND IT WOULD TAKE 3 DAYS TO GET IT IN AND COMPOUND IT. I THANKED HIM FOR HIS TIME. @0905, CALLED LEA BACK AND EXPLAINED THIS TO HER. SHE STATED THAT THEY COULD HAVE THE MEDICINE AND HAVE IT COMPOUNDED BY 1300 TOMORROW. SHE STATED THAT THEY COULD ONLY MAKE HER 7 DAYS AT A TIME BECAUSE THE SOLUTION IS ONLY STABLE FOR 7 DAYS, BUT THERE WOULD BE NO PROBLEM MEETING THE PATIENT NEEDS. AT THIS TIME, ALL 3 MEDS WERE CALLED INTO HER. WILL SEE IF WE CAN SEND THE PATIENT HOME WITH ENOUGH DOSES TO MAKE HER THROUGH TOMORROW AT 1300.
--- NOTE | 2017-02-02 09:25 | NUR ---
@0916, SPOKE WITH KAHLIL IN THE PHARMACY. EXPLAINED THE DISCHARGE DANELLE WITH THE VANCOMYCIN AND INQUIRED ABOUT THE MELVIN OF THE ORAL VANCOMYCIN. HE STATED THAT IT WAS LESS THAN $5.00 PER DOSE. 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 REQUESTED I CALL KAHLIL BACK AND LET HIM KNOW THIS SECONDARY TO HER BEING IN A DISASTER DRILL. @0921, SPOKE WITH KAHLIL AND HE WILL HAVE IT READY BY NOON. THIS INFORMATION HAS BEEN VERBALLY RELAYED TO THE OTHER MEMBERS INVOLVED IN HER DISCHARGE.
--- NOTE | 2017-02-02 09:30 | NUR ---
MORNING MEDICATIONS GIVEN. NO ISSUES. CPOC
--- NOTE | 2017-02-02 10:31 | NUR ---
SPOKE WITH DR FLORES NURSE HANH, ABOUT DR BELTRAN OKAY PATIENT FOR DC. DR FLORES NOTE STATED TO KEEP PATIENT TIL WEDNESDAY. HANH SPOKE WITH DR FLORES AND STATED IT WAS OKAY FOR DC.
[2017-02-02 12:00] VITALS: BP 147/69
--- NOTE | 2017-02-02 12:30 | NUR ---
PATIENT SITTING UP IN BED, DAUGHTER FEEDING HER LUNCH. PATIENT DENIES PAIN OR NEEDS. WILL CONT TO MONITOR
--- NOTE | 2017-02-02 13:14 | NUR ---
[facility] CALLED FOR TRANSPORT. STATED IT WOULD BE AROUND AN HOUR. CPOC
--- NOTE | 2017-02-02 14:14 | NUR ---
[facility] HERE FOR TRANSPORT. [facility] PAPER[facility] SIGNED. INSTRUCTIONS GIVEN TO DAUGHTER DENIES ANY NEEDS. READY FOR DC
== END 2017-02-02 15:08 | disposition home or self-care (01) | DRG 371 ==
LOC: D.M2 17:30
PROVIDERS: ADMIT Internal Medicine Nephrology
PROC: 5A1D60Z (ICD-10-PCS; principal; 2017-01-29)
DX: A04.7 Enterocolitis due to Clostridium difficile (principal); N18.6 End stage renal disease; G93.49 Other encephalopathy; I12.0 Hypertensive chronic kidney disease with stage 5 chronic kidney disease or end stage renal disease; F05 Delirium due to known physiological condition; R18.8 Other ascites; E11.22 Type 2 diabetes mellitus with diabetic chronic kidney disease; Z99.2 Dependence on renal dialysis; Z79.4 Long term (current) use of insulin; D63.1 Anemia in chronic kidney disease; F03.90 Unspecified dementia, unspecified severity, without behavioral disturbance, psychotic disturbance, mood disturbance, and anxiety; H40.9 Unspecified glaucoma; E87.6 Hypokalemia; E83.39 Other disorders of phosphorus metabolism; Z86.73 Personal history of transient ischemic attack (TIA), and cerebral infarction without residual deficits; Z87.891 Personal history of nicotine dependence; Z74.01 Bed confinement status

== ENCOUNTER 2017-03-03 07:15 | Day surgery (SDC) | payer MEDICARE ==
[~2017-03-03 07:15] MED LIST changes: +FLAGYL250 MG PO; +NYSTATIN ORAL SU5 ML PO
[2017-03-03 08:28] LABS: HEMATOCRIT 38.8 % (36.0-48.0); HEMOGLOBIN 11.9 g/dL (12-16); MCH 31.6 pg (26.0-34.0); MCHC 30.7 g/dL (31.0-37.0); MCV 103.2 fL (80.0-100.0); MEAN PLATELET VOLUME 9.3 fL (7.4-10.4); RBC 3.76 10x6/uL (4.00-5.40); RDW 16.6 % (11.5-14.5); WBC 8.2 10x3/uL (4.8-10.8)
[2017-03-03 08:39] LABS: ANION GAP 10.8 mmol/L (8-16); CALCIUM 7.9 mg/dL (8.5-10.1); CARBON DIOXIDE 27.2 mmol/L (21.0-32.0); CREATININE - SERUM 1.4 mg/dL (0.6-1.3)
[2017-03-03 08:41] VITALS: BMI 17.8
--- NOTE | 2017-03-03 10:13 | NUR ---
1010 SWITCHED OVER TO N/S 250 DUE TO CHF.
--- NOTE | 2017-03-03 10:40 | NUR ---
1035 BACK FROM EGD WITH FECCAL TRANSPLANT AND HOB ELEVATED.
[2017-03-03] MEDS ORDERED: PROBIOTIC1 EAC1 (10:56)
[2017-03-03] MEDS ORDERED: PEPCID20 MG PO (10:57)
--- NOTE | 2017-03-03 13:07 | NUR ---
1135 TOLERATED DIET HOB ELEVATED.
--- NOTE | 2017-03-03 13:08 | NUR ---
1235 DISCHARGE INSTRUCTIONS GIVEN BY THIERRY SPICER R.N. IV DCD CATHETER INTACT.
--- NOTE | 2017-03-03 13:11 | NUR ---
1245 TO HOME VIA W/C.
--- NOTE | 2017-04-20 16:04 | OP ---
PATIENT NAME: JUAN LAMB MEDICAL RECORD: [id number] :40 [facility] ADMISSION DATE: SURGEON: NEMO FLORES MD DATE OF OPERATION: 03/03/2017 PROCEDURE: EGD with intubation of the small bowel to 1.2 m with deployment of 60 cc of fecal transplant material. SCOPE: Olympus video gastroscope. MEDICATIONS: Per TIVA anesthesia. The patient received a total of 50 mg of propofol for this procedure, O2 4 liters. 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 INDICATION FOR ANESTHESIA: Coronary artery disease, congestive heart failure, renal insufficiency, hypertension, history of cerebrovascular accident in 2012. EGD FINDINGS: Informed consent was given. The patient was made comfortable with the above medications. After reaching an adequate level of sedation by slow IV push, the patient was placed on her left side. The endoscope was then advanced under direct visualization through the posterior pharyngeal area and advanced through the esophagus, stomach and the small bowel was intubated and we proceeded to advance the scope to 1.2 m. At this point, the stool sample 60mL of fecal transplant material was then employed. This was followed by a 120 cc of water. The scope was then slowly withdrawn and mucosa was inspected. The patient had very minimal inflammation in the small bowel. The gastric mucosa was significant for a few erosions at the antral area. The patient was noted to have a hiatal hernia and mild esophagitis was seen. The scope was then completely withdrawn. IMPRESSION: 1. Fecal transplantation with 60 cc of donor stool followed by 120 cc of water. This was deployed into the distal duodenum at 1.2 m. 2. Mild esophagitis. 3. Hiatal hernia. 4. Mild erosive gastritis. 5. Mild duodenitis. PLAN: 1. The patient should remain very still today. She should eat nongaseous foods. She should start probiotics. In the next couple of days, she can resume all medications. 2. I would like for the patient to take Pepcid at a dose of 20 mg p.o. b.i.d. She should avoid all anti-inflammatory drugs and proton pump inhibitors. 3. She should eat nongaseousness foods today. We do not want any abdominal distention. TRANSINT:[id number] Voice Confirmation ID: [id number] DOCUMENT ID: [id number] OPERATIVE REPORT [id number] JUAN LAMB BRENDA MD at 1604 CC: DARRELL BELTRAN MD and Alicia BOGGS [id number] DICTATION DATE: 03/03/17 1025 RAW SHELLFISH PREPARER: 03/03/17 1110 [facility] [place] 03/03/[address] [facility] [address] [place] [address]
== END 2017-03-03 12:55 | disposition home or self-care (01) ==
LOC: D.OPS 07:15
PROVIDERS: Anesthesiology
DX: A04.71 Enterocolitis due to Clostridium difficile, recurrent (principal); I25.10 Atherosclerotic heart disease of native coronary artery without angina pectoris; I11.0 Hypertensive heart disease with heart failure; I50.9 Heart failure, unspecified; N28.9 Disorder of kidney and ureter, unspecified; Z86.73 Personal history of transient ischemic attack (TIA), and cerebral infarction without residual deficits; Z01.812 Encounter for preprocedural laboratory examination

== ENCOUNTER 2017-05-01 17:40 | Inpatient (IN) | payer MEDICARE ==
[~2017-05-01] VITALS: Ht 167.6 cm; Wt 49.1 kg
--- NOTE | ~2017-05-01 | EC ---
PATIENT:JUAN LAMB DATE OF SERVICE: 05/01/17 SEX: F MEDICAL RECORD: [id number] DATE OF : 40 LOCATION:[place] [id number] AGE OF PATIENT: 76 ADMISSION DATE: 05/01/17 REFERRING PHYSICIAN: INTERPRETING PHYSICIAN: MARION LOPES MD ECHOCARDIOGRAM REPORT ECHO CHARGES 4 ECHO COMPLETE CLINICAL DIAGNOSIS: CHF ECHOCARDIOGRAPHIC MEASUREMENTS (adult normal given) AC root (d.<3.7cm) 2.6 cm LV Septum d (<1.2 cm> 1.4 cm Valve Excursion 1.4 cm LV Septum (systole) 1.5 cm Left Atria (s.<4.0cm> 3.9 cm LVPW d(<1.2cm) 1.4 cm RV (d.<2.3cm) 2.0 cm LVPW (sytole) 1.7 cm LV diastole(<5.6CM) 4.3 cm MV E-F(>70mm/sec) cm LV systole 3.6 cm LVOT Diameter 1.7 cm MV exc.(>10mm) cm Est.ejection fraction (50-75%) % Pericardial Effusion N DOPPLER: LVIT cm/sec A 98.0 cm/sec E 152 cm/sec LA cm/sec RVSP 53.0 mmHg LVOT 68.0 cm/sec AOP1/2T m/s Asc. Ao 133 cm/sec RVOT 53.0 cm/sec RA cm/sec PA 59.0 cm/sec AV Gradient Peak 7.1 mmHg AV Mean 2.9 mmHg AV Area 1.4 cm MV Gradient Peak 9.9 mmHg MV Mean 3.6 mmHg MV Area cm COMMENTS: Flame Channeler: Trena LANGSTONOE Reconditioner: 3 Dr. Goetz TAPE# PACS DATE OF SERVICE: 05/03/2017 Adequate 2D echo, color flow and spectral Doppler, and M-mode. LVH is present. LV internal dimension is normal. Wall motion is abnormal with global hypokinesis, reduced EF. Estimated EF 20% to 25%. Aortic valve sclerosis without stenosis by Doppler interrogation. Left atrium is normal at 3.0 cm. Mitral valve is thickened. Moderate to severe MR. Right-sided chamber is grossly normal. Moderate TR. RV systolic pressure is estimated at greater than or equal to 53 mmHg via the continuity equation. ECHOCARDIOGRAM REPORT [id number] JUAN LAMB TRANSINT:[id number] Voice Confirmation ID: [id number] DOCUMENT ID: [id number] MARION LOPES MD at 1517 CC: [id number] DICTATION DATE: 05/03/17 1128 SYSTEM TRAINER: 05/03/17 1230 ADM IN [facility] [address] [place] [id number]
[~2017-05-01 17:40] MED LIST changes: +PROBIOTIC1 EAC1
[2017-05-01 18:44] LABS: BASOPHILS 0 % (0-2); EOSINOPHILS 0 % (0-7); HEMATOCRIT 30.4 % (36.0-48.0); HEMOGLOBIN 9.5 g/dL (12-16); IMMATURE GRANULOCYTES 0.2 % (0-5); LYMPHOCYTES 9.9 % (15-50); MCH 28.6 pg (26.0-34.0); MCHC 31.3 g/dL (31.0-37.0); MCV 91.6 fL (80.0-100.0); MEAN PLATELET VOLUME 8.7 fL (7.4-10.4); NEUTROPHILS 82.9 % (40-80); PLATELET COUNT 225 10x3/uL (130-400); RBC 3.32 10x6/uL (4.00-5.40); RDW 15.8 % (11.5-14.5); WBC 4.7 10x3/uL (4.8-10.8)
[2017-05-01 18:53] LABS: APTT 29.7 SECONDS (22.8-39.4); INR 1.29 (0.85-1.17); PROTIME 15.6 SECONDS (11.6-15.0)
[2017-05-01 19:11] LABS: ALBUMIN 2.1 g/dL (3.4-5.0); ALKALINE PHOSPHATASE 204 U/L (46-116); ALT (SGPT) 59 U/L (10-68); BILIRUBIN - TOTAL 0.38 mg/dL (0.2-1.3); CALC OSMOLALITY 297 mosm/kg (275-300); CALCIUM 8.2 mg/dL (8.5-10.1); CARBON DIOXIDE 25.6 mmol/L (21.0-32.0); CHLORIDE - SERUM 100 mmol/L (98-107); CREATININE - SERUM 2.3 mg/dL (0.6-1.3); GLUCOSE 285 mg/dL (74-106); POTASSIUM - SERUM 3.3 mmol/L (3.5-5.1); PROTEIN - SERUM 7.1 g/dL (6.4-8.2); SODIUM 140 mmol/L (136-145); UREA NITROGEN 37 mg/dL (7-18); eGFR NON AFRICAN AMERICAN 22 mL/min (90-120)
[2017-05-01 19:19] LABS: AMYLASE - SERUM 12 U/L (25-115); CKMB 0.9 U/L (0.0-3.6); CREATINE KINASE 28 UL (21-215); MAGNESIUM - SERUM 1.9 mg/dL (1.8-2.4)
[2017-05-01 19:23] LABS: LIPASE 24 U/L (73-393)
[2017-05-01 19:24] LABS: TROPONIN-I 0.117 ng/mL (0.000-0.060)
[2017-05-01 19:24] LABS: APPEARANCE HAZY (CLEAR); BILIRUBIN NEGATIVE (NEGATIVE); COLOR BROWN (YELLOW); GLUCOSE NEGATIVE (NEGATIVE); KETONE NEGATIVE (NEGATIVE); NITRITE NEGATIVE (NEGATIVE); PROTEIN 3+ mg/dL (NEGATIVE); UROBILINOGEN NORMAL (NORMAL)
[2017-05-01 19:25] VITALS: BP 122/93
[2017-05-01 19:28] LABS: BACTERIA MANY /hpf (NONE SEEN); EPITHELIAL CELLS >50 /hpf (0-5); WHITE CELLS - URINE 25-50 /hpf (0-5)
[2017-05-01 19:39] LABS: PRO BNP 243573 pg/mL (0-450)
[2017-05-01 19:53] VITALS: BP 130/64; BMI 16.5
[2017-05-01 20:00] VITALS: BP 104/56
[2017-05-01] MEDS ORDERED: CREON (PANCRELI1 CAP PO (20:21)
[2017-05-01 21:00] VITALS: BP 132/72
[2017-05-01 22:00] VITALS: BP 132/78
[2017-05-01 23:00] VITALS: BP 125/57
[2017-05-02] VITALS (24 sets, daily range): BP systolic 94–124; BP diastolic 30–89
[2017-05-02 04:42] LABS: BASOPHILS 0.2 % (0-2); EOSINOPHILS 0.7 % (0-7); HEMATOCRIT 29.3 % (36.0-48.0); HEMOGLOBIN 9.5 g/dL (12-16); IMMATURE GRANULOCYTES 0.7 % (0-5); LYMPHOCYTES 20.7 % (15-50); MCH 29.1 pg (26.0-34.0); MCHC 32.4 g/dL (31.0-37.0); MCV 89.9 fL (80.0-100.0); MEAN PLATELET VOLUME 9.2 fL (7.4-10.4); MONOCYTES 5.5 % (2-11); NEUTROPHILS 72.2 % (40-80); RBC 3.26 10x6/uL (4.00-5.40); RDW 15.9 % (11.5-14.5)
[2017-05-02 04:57] LABS: PLATELET COUNT 139 10x3/uL (130-400); WBC 6.1 10x3/uL (4.8-10.8)
[2017-05-02 04:58] LABS: ANION GAP 14.9 mmol/L (8-16); CALCIUM 8.1 mg/dL (8.5-10.1); CREATININE - SERUM 2.3 mg/dL (0.6-1.3)
[2017-05-02 05:02] LABS: POTASSIUM - SERUM 2.9 mmol/L (3.5-5.1)
[2017-05-03] VITALS (30 sets, daily range): BP systolic 91–156; BP diastolic 30–85; BMI 16.4
[2017-05-03 08:13] LABS: APTT 24.9 SECONDS (22.8-39.4); INR 1.28 (0.85-1.17); PROTIME 15.5 SECONDS (11.6-15.0)
[2017-05-03 08:31] LABS: ANION GAP 12.8 mmol/L (8-16); CALCIUM 8.3 mg/dL (8.5-10.1); CARBON DIOXIDE 27.6 mmol/L (21.0-32.0); CREATININE - SERUM 1.9 mg/dL (0.6-1.3); POTASSIUM - SERUM 4.4 mmol/L (3.5-5.1); PROTEIN - SERUM 7.5 g/dL (6.4-8.2); THYROID STIMULATING HORMONE 32.99 uIU/mL (0.36-3.74)
[2017-05-03 09:52] LABS: BASOPHILS 0 % (0-2); EOSINOPHILS 0 % (0-7); HEMATOCRIT 27.4 % (36.0-48.0); HEMOGLOBIN 8.8 g/dL (12-16); IMMATURE GRANULOCYTES 0.5 % (0-5); LYMPHOCYTES 15.6 % (15-50); MCH 29.1 pg (26.0-34.0); MCHC 32.1 g/dL (31.0-37.0); MCV 90.7 fL (80.0-100.0); MEAN PLATELET VOLUME 9.5 fL (7.4-10.4); MONOCYTES 2.5 % (2-11); NEUTROPHILS 81.4 % (40-80); PLATELET COUNT 153 10x3/uL (130-400); RBC 3.02 10x6/uL (4.00-5.40); RDW 16.7 % (11.5-14.5)
[2017-05-03 09:54] LABS: WBC 4.4 10x3/uL (4.8-10.8)
[2017-05-03 13:12] LABS: PROTEIN - BODY FLUID 2.5 G/DL
[2017-05-03 13:30] LABS: MACROPHAGES BF 10 %; MESOTHELIALS BF 2 %; NEUT - BF 80 %
[2017-05-04] VITALS (25 sets, daily range): BP systolic 135–157; BP diastolic 58–82; Ht 167.6 cm; Wt 49.1 kg
[2017-05-04 06:42] LABS: BASOPHILS 0.1 % (0-2); EOSINOPHILS 0 % (0-7); HEMOGLOBIN 9.7 g/dL (12-16); IMMATURE GRANULOCYTES 0.4 % (0-5); MCH 28.6 pg (26.0-34.0); MCHC 31.3 g/dL (31.0-37.0); MCV 91.4 fL (80.0-100.0); MEAN PLATELET VOLUME 9.7 fL (7.4-10.4); MONOCYTES 5.8 % (2-11); NEUTROPHILS 88.7 % (40-80); PLATELET COUNT 130 10x3/uL (130-400); RBC 3.39 10x6/uL (4.00-5.40); RDW 17.2 % (11.5-14.5)
[2017-05-04 06:45] LABS: WBC 13.4 10x3/uL (4.8-10.8)
[2017-05-04 06:53] LABS: ANION GAP 15.5 mmol/L (8-16); CALCIUM 7.6 mg/dL (8.5-10.1); CARBON DIOXIDE 24.7 mmol/L (21.0-32.0); POTASSIUM - SERUM 4.2 mmol/L (3.5-5.1)
[2017-05-04 06:55] LABS: CREATININE - SERUM 1.4 mg/dL (0.6-1.3)
[2017-05-04 17:11] LABS: HEPATITIS C ANTIBODY 0.1 (0.0-0.9)
[2017-05-04 18:09] LABS: AFB SPECIMEN PROCESSING Not Indicated (())
[2017-05-05] VITALS (24 sets, daily range): BP systolic 126–154; BP diastolic 58–89
[2017-05-05 04:40] LABS: BASOPHILS 0 % (0-2); EOSINOPHILS 0.2 % (0-7); HEMATOCRIT 25.2 % (36.0-48.0); IMMATURE GRANULOCYTES 0.3 % (0-5); LYMPHOCYTES 8.5 % (15-50); MCH 28.9 pg (26.0-34.0); MCHC 31.7 g/dL (31.0-37.0); MEAN PLATELET VOLUME 10.3 fL (7.4-10.4); MONOCYTES 4.6 % (2-11); NEUTROPHILS 86.4 % (40-80); PLATELET COUNT 142 10x3/uL (130-400); RBC 2.77 10x6/uL (4.00-5.40); RDW 17.4 % (11.5-14.5)
[2017-05-05 04:52] LABS: CALCIUM 7.9 mg/dL (8.5-10.1)
[2017-05-05 04:56] LABS: WBC 9.9 10x3/uL (4.8-10.8)
[2017-05-05 04:58] LABS: CREATININE - SERUM 1.9 mg/dL (0.6-1.3)
[2017-05-06] VITALS (24 sets, daily range): BP systolic 113–154; BP diastolic 50–81
[2017-05-06 04:46] LABS: BASOPHILS 0.1 % (0-2); EOSINOPHILS 0.4 % (0-7); HEMATOCRIT 26.5 % (36.0-48.0); HEMOGLOBIN 8.4 g/dL (12-16); IMMATURE GRANULOCYTES 0.1 % (0-5); MCH 28.9 pg (26.0-34.0); MCHC 31.7 g/dL (31.0-37.0); MCV 91.1 fL (80.0-100.0); MEAN PLATELET VOLUME 10.2 fL (7.4-10.4); MONOCYTES 7.2 % (2-11); NEUTROPHILS 86.2 % (40-80); PLATELET COUNT 119 10x3/uL (130-400); RBC 2.91 10x6/uL (4.00-5.40); RDW 17.1 % (11.5-14.5); WBC 8.2 10x3/uL (4.8-10.8)
[2017-05-06 05:12] LABS: ANION GAP 8.2 mmol/L (8-16); CALCIUM 7.5 mg/dL (8.5-10.1); CARBON DIOXIDE 28.8 mmol/L (21.0-32.0); CREATININE - SERUM 1.5 mg/dL (0.6-1.3)
[2017-05-07] VITALS (24 sets, daily range): BP systolic 91–162; BP diastolic 41–91
[2017-05-07 06:32] LABS: ANION GAP 11.3 mmol/L (8-16); CALCIUM 7.9 mg/dL (8.5-10.1); CARBON DIOXIDE 28.3 mmol/L (21.0-32.0)
[2017-05-07 06:35] LABS: POTASSIUM - SERUM 4.6 mmol/L (3.5-5.1)
[2017-05-07 06:52] LABS: BASOPHILS 0.1 % (0-2); EOSINOPHILS 1.1 % (0-7); HEMATOCRIT 26.4 % (36.0-48.0); HEMOGLOBIN 8.3 g/dL (12-16); IMMATURE GRANULOCYTES 0.2 % (0-5); MCH 29.2 pg (26.0-34.0); MCHC 31.4 g/dL (31.0-37.0); MEAN PLATELET VOLUME 11.3 fL (7.4-10.4); MONOCYTES 8.8 % (2-11); NEUTROPHILS 75.8 % (40-80); RBC 2.84 10x6/uL (4.00-5.40); RDW 17.2 % (11.5-14.5); WBC 8.5 10x3/uL (4.8-10.8)
[2017-05-07 07:05] LABS: PLATELET COUNT 149 10x3/uL (130-400)
[2017-05-07 11:17] LABS: FUNGUS STAIN Final report (())
[2017-05-08] VITALS (24 sets, daily range): BP systolic 78–154; BP diastolic 32–95
[2017-05-08 07:15] LABS: BASOPHILS 0.2 % (0-2); EOSINOPHILS 0.8 % (0-7); HEMATOCRIT 28.8 % (36.0-48.0); HEMOGLOBIN 8.8 g/dL (12-16); IMMATURE GRANULOCYTES 0.3 % (0-5); LYMPHOCYTES 6.2 % (15-50); MCH 28.9 pg (26.0-34.0); MCHC 30.6 g/dL (31.0-37.0); MCV 94.4 fL (80.0-100.0); MEAN PLATELET VOLUME 11.2 fL (7.4-10.4); MONOCYTES 9.7 % (2-11); NEUTROPHILS 82.8 % (40-80); PLATELET COUNT 124 10x3/uL (130-400); RBC 3.05 10x6/uL (4.00-5.40); RDW 17.3 % (11.5-14.5)
[2017-05-08 07:46] LABS: CALCIUM 7.8 mg/dL (8.5-10.1); CARBON DIOXIDE 30.6 mmol/L (21.0-32.0); CREATININE - SERUM 1.7 mg/dL (0.6-1.3); POTASSIUM - SERUM 4.6 mmol/L (3.5-5.1)
[2017-05-09] VITALS (24 sets, daily range): BP systolic 86–166; BP diastolic 30–960
[2017-05-09 08:17] LABS: BASOPHILS 0.1 % (0-2); EOSINOPHILS 0.7 % (0-7); HEMATOCRIT 25.4 % (36.0-48.0); IMMATURE GRANULOCYTES 0.3 % (0-5); LYMPHOCYTES 8.6 % (15-50); MCH 28.8 pg (26.0-34.0); MCHC 31.5 g/dL (31.0-37.0); MCV 91.4 fL (80.0-100.0); MEAN PLATELET VOLUME 11.1 fL (7.4-10.4); MONOCYTES 8.9 % (2-11); NEUTROPHILS 81.4 % (40-80); PLATELET COUNT 142 10x3/uL (130-400); RBC 2.78 10x6/uL (4.00-5.40); RDW 16.6 % (11.5-14.5); WBC 7.7 10x3/uL (4.8-10.8)
[2017-05-09 08:42] LABS: ANION GAP 12.7 mmol/L (8-16); CALCIUM 8.2 mg/dL (8.5-10.1); CARBON DIOXIDE 26.4 mmol/L (21.0-32.0); POTASSIUM - SERUM 6.1 mmol/L (3.5-5.1)
[2017-05-10] VITALS (24 sets, daily range): BP systolic 88–167; BP diastolic 56–105
[2017-05-10 05:18] LABS: BASOPHILS 0.1 % (0-2); EOSINOPHILS 1.2 % (0-7); HEMATOCRIT 24.3 % (36.0-48.0); HEMOGLOBIN 7.6 g/dL (12-16); IMMATURE GRANULOCYTES 0.3 % (0-5); LYMPHOCYTES 13.3 % (15-50); MCH 28.5 pg (26.0-34.0); MCHC 31.3 g/dL (31.0-37.0); MEAN PLATELET VOLUME 11.1 fL (7.4-10.4); MONOCYTES 8.3 % (2-11); NEUTROPHILS 76.8 % (40-80); PLATELET COUNT 168 10x3/uL (130-400); RBC 2.67 10x6/uL (4.00-5.40); WBC 7.8 10x3/uL (4.8-10.8)
[2017-05-10 05:33] LABS: ANION GAP 14.5 mmol/L (8-16); CALCIUM 8.2 mg/dL (8.5-10.1); CARBON DIOXIDE 25.3 mmol/L (21.0-32.0); CREATININE - SERUM 2.2 mg/dL (0.6-1.3); POTASSIUM - SERUM 5.8 mmol/L (3.5-5.1)
[2017-05-11] VITALS (25 sets, daily range): BP systolic 101–158; BP diastolic 54–95
[2017-05-11 04:10] LABS: BASOPHILS 0.2 % (0-2); EOSINOPHILS 0.8 % (0-7); HEMATOCRIT 28.2 % (36.0-48.0); HEMOGLOBIN 8.4 g/dL (12-16); IMMATURE GRANULOCYTES 0.2 % (0-5); LYMPHOCYTES 11.8 % (15-50); MCH 28.3 pg (26.0-34.0); MCHC 29.8 g/dL (31.0-37.0); MEAN PLATELET VOLUME 11.4 fL (7.4-10.4); MONOCYTES 11.2 % (2-11); NEUTROPHILS 75.8 % (40-80); PLATELET COUNT 143 10x3/uL (130-400); RBC 2.97 10x6/uL (4.00-5.40); RDW 17.9 % (11.5-14.5); WBC 9.1 10x3/uL (4.8-10.8)
[2017-05-11 04:16] LABS: CALCIUM 7.9 mg/dL (8.5-10.1); CARBON DIOXIDE 24.6 mmol/L (21.0-32.0); MAGNESIUM - SERUM 1.9 mg/dL (1.8-2.4); PHOSPHOROUS 2.5 mg/dL (2.5-4.9)
[2017-05-11 04:21] LABS: MCV 94.9 fL (80.0-100.0)
[2017-05-11 04:27] LABS: CREATININE - SERUM 1.6 mg/dL (0.6-1.3); POTASSIUM - SERUM 4.6 mmol/L (3.5-5.1)
[2017-05-12] VITALS (26 sets, daily range): BP systolic 122–167; BP diastolic 58–97
[2017-05-12 04:12] LABS: BASOPHILS 0 % (0-2); EOSINOPHILS 0.8 % (0-7); IMMATURE GRANULOCYTES 0.3 % (0-5); LYMPHOCYTES 13.2 % (15-50); MCH 28.7 pg (26.0-34.0); MCHC 31.3 g/dL (31.0-37.0); MEAN PLATELET VOLUME 12.2 fL (7.4-10.4); MONOCYTES 7.2 % (2-11); NEUTROPHILS 78.5 % (40-80); RDW 17.3 % (11.5-14.5); WBC 7.8 10x3/uL (4.8-10.8)
[2017-05-12 04:33] LABS: HEMATOCRIT 21.1 % (36.0-48.0); HEMOGLOBIN 6.6 g/dL (12-16); MCV 91.7 fL (80.0-100.0); PLATELET COUNT 218 10x3/uL (130-400)
[2017-05-12 04:38] LABS: ALBUMIN 1.2 g/dL (3.4-5.0); ANION GAP 10.6 mmol/L (8-16); BILIRUBIN - TOTAL 0.32 mg/dL (0.2-1.3); CALCIUM 7.6 mg/dL (8.5-10.1); POTASSIUM - SERUM 4.6 mmol/L (3.5-5.1)
[2017-05-13] VITALS (22 sets, daily range): BP systolic 141–164; BP diastolic 62–87
[2017-05-13 03:32] LABS: BASOPHILS 0.1 % (0-2); EOSINOPHILS 0.2 % (0-7); IMMATURE GRANULOCYTES 0.4 % (0-5); LYMPHOCYTES 5.9 % (15-50); MCH 29.5 pg (26.0-34.0); MCHC 33.7 g/dL (31.0-37.0); MEAN PLATELET VOLUME 10.7 fL (7.4-10.4); MONOCYTES 6.4 % (2-11); RDW 15.4 % (11.5-14.5)
[2017-05-13 03:33] LABS: HEMATOCRIT 33.2 % (36.0-48.0); HEMOGLOBIN 11.2 g/dL (12-16); MCV 87.4 fL (80.0-100.0); PLATELET COUNT 129 10x3/uL (130-400); WBC 9.9 10x3/uL (4.8-10.8)
[2017-05-13 03:46] LABS: CALCIUM 7.7 mg/dL (8.5-10.1); CARBON DIOXIDE 26.9 mmol/L (21.0-32.0); CREATININE - SERUM 1.9 mg/dL (0.6-1.3)
[2017-05-13 03:55] LABS: ANION GAP 7.8 mmol/L (8-16)
[2017-05-13 04:00] LABS: POTASSIUM - SERUM 2.7 mmol/L (3.5-5.1)
[2017-05-14] VITALS (24 sets, daily range): BP systolic 117–169; BP diastolic 45–87
[2017-05-14 04:12] LABS: BASOPHILS 0.1 % (0-2); EOSINOPHILS 0.4 % (0-7); HEMATOCRIT 34.1 % (36.0-48.0); HEMOGLOBIN 11.5 g/dL (12-16); IMMATURE GRANULOCYTES 0.3 % (0-5); LYMPHOCYTES 9.4 % (15-50); MCH 29.9 pg (26.0-34.0); MCHC 33.7 g/dL (31.0-37.0); MCV 88.8 fL (80.0-100.0); MEAN PLATELET VOLUME 11.1 fL (7.4-10.4); MONOCYTES 7.3 % (2-11); NEUTROPHILS 82.5 % (40-80); RBC 3.84 10x6/uL (4.00-5.40); RDW 15.6 % (11.5-14.5); WBC 9.6 10x3/uL (4.8-10.8)
[2017-05-14 04:13] LABS: PLATELET COUNT 157 10x3/uL (130-400)
[2017-05-14 04:26] LABS: ALBUMIN 1.2 g/dL (3.4-5.0); ANION GAP 9.4 mmol/L (8-16); BILIRUBIN - TOTAL 0.41 mg/dL (0.2-1.3); CALCIUM 7.9 mg/dL (8.5-10.1); CARBON DIOXIDE 29.7 mmol/L (21.0-32.0); POTASSIUM - SERUM 3.1 mmol/L (3.5-5.1); PROTEIN - SERUM 6.2 g/dL (6.4-8.2)
[2017-05-14 12:15] LABS: ALP - ISO (ALP) 221 IU/L (39-117); ALP - ISO (BONE) FRACTION 9 % (14-68); ALP - ISO (LIVER) FRACTION 50 % (18-85); ALP - ISO(INTESTINAL) FRACTION 41 % (0-18)
[2017-05-15] VITALS (24 sets, daily range): BP systolic 140–158; BP diastolic 66–97
[2017-05-15 04:31] LABS: BASOPHILS 0.1 % (0-2); EOSINOPHILS 0.3 % (0-7); HEMATOCRIT 34.2 % (36.0-48.0); HEMOGLOBIN 11.4 g/dL (12-16); IMMATURE GRANULOCYTES 0.3 % (0-5); LYMPHOCYTES 9.4 % (15-50); MCH 29.7 pg (26.0-34.0); MCHC 33.3 g/dL (31.0-37.0); MCV 89.1 fL (80.0-100.0); MEAN PLATELET VOLUME 10.1 fL (7.4-10.4); MONOCYTES 9.3 % (2-11); NEUTROPHILS 80.6 % (40-80); PLATELET COUNT 149 10x3/uL (130-400); RBC 3.84 10x6/uL (4.00-5.40); RDW 15.8 % (11.5-14.5); WBC 8.9 10x3/uL (4.8-10.8)
[2017-05-15 04:46] LABS: ALBUMIN 1.2 g/dL (3.4-5.0); ANION GAP 8.2 mmol/L (8-16); BILIRUBIN - TOTAL 0.26 mg/dL (0.2-1.3); CALCIUM 7.8 mg/dL (8.5-10.1); CARBON DIOXIDE 30.6 mmol/L (21.0-32.0); CREATININE - SERUM 1.7 mg/dL (0.6-1.3); PROTEIN - SERUM 6.1 g/dL (6.4-8.2)
[2017-05-15 04:48] LABS: POTASSIUM - SERUM 2.8 mmol/L (3.5-5.1)
[2017-05-16] VITALS (24 sets, daily range): BP systolic 142–164; BP diastolic 16–97
[2017-05-16 05:02] LABS: BASOPHILS 0.1 % (0-2); EOSINOPHILS 0.3 % (0-7); HEMOGLOBIN 10.9 g/dL (12-16); IMMATURE GRANULOCYTES 0.1 % (0-5); LYMPHOCYTES 10.1 % (15-50); MCH 29.6 pg (26.0-34.0); MCV 89.7 fL (80.0-100.0); MEAN PLATELET VOLUME 10.1 fL (7.4-10.4); MONOCYTES 8.1 % (2-11); NEUTROPHILS 81.3 % (40-80); PLATELET COUNT 178 10x3/uL (130-400); RBC 3.68 10x6/uL (4.00-5.40); WBC 8.9 10x3/uL (4.8-10.8)
[2017-05-16 05:17] LABS: ANION GAP 13.4 mmol/L (8-16); CALCIUM 7.8 mg/dL (8.5-10.1); CARBON DIOXIDE 26.6 mmol/L (21.0-32.0); CREATININE - SERUM 2.1 mg/dL (0.6-1.3)
[2017-05-17] VITALS (20 sets, daily range): BP systolic 123–167; BP diastolic 63–104
[2017-05-17 04:52] LABS: BASOPHILS 0.1 % (0-2); EOSINOPHILS 0.5 % (0-7); HEMATOCRIT 30.2 % (36.0-48.0); HEMOGLOBIN 9.9 g/dL (12-16); IMMATURE GRANULOCYTES 0.3 % (0-5); LYMPHOCYTES 9.1 % (15-50); MCH 29.4 pg (26.0-34.0); MCHC 32.8 g/dL (31.0-37.0); MCV 89.6 fL (80.0-100.0); MEAN PLATELET VOLUME 9.8 fL (7.4-10.4); MONOCYTES 9.4 % (2-11); NEUTROPHILS 80.6 % (40-80); PLATELET COUNT 195 10x3/uL (130-400); RBC 3.37 10x6/uL (4.00-5.40); RDW 15.7 % (11.5-14.5); WBC 7.6 10x3/uL (4.8-10.8)
[2017-05-17 05:04] LABS: ANION GAP 10.2 mmol/L (8-16); CALCIUM 7.7 mg/dL (8.5-10.1); CARBON DIOXIDE 28.1 mmol/L (21.0-32.0); CREATININE - SERUM 2.3 mg/dL (0.6-1.3); POTASSIUM - SERUM 3.3 mmol/L (3.5-5.1)
[2017-05-18] VITALS (24 sets, daily range): BP systolic 132–176; BP diastolic 64–98
[2017-05-18 04:17] LABS: BASOPHILS 0.3 % (0-2); EOSINOPHILS 1.1 % (0-7); HEMATOCRIT 29.7 % (36.0-48.0); HEMOGLOBIN 9.7 g/dL (12-16); IMMATURE GRANULOCYTES 0.2 % (0-5); LYMPHOCYTES 10.6 % (15-50); MCH 29.3 pg (26.0-34.0); MCHC 32.7 g/dL (31.0-37.0); MCV 89.7 fL (80.0-100.0); MEAN PLATELET VOLUME 9.9 fL (7.4-10.4); MONOCYTES 11.8 % (2-11); PLATELET COUNT 207 10x3/uL (130-400); RBC 3.31 10x6/uL (4.00-5.40); RDW 15.8 % (11.5-14.5); WBC 6.5 10x3/uL (4.8-10.8)
[2017-05-18 04:24] LABS: ANION GAP 10.4 mmol/L (8-16); CALCIUM 7.5 mg/dL (8.5-10.1); CARBON DIOXIDE 29.5 mmol/L (21.0-32.0)
[2017-05-18 04:26] LABS: POTASSIUM - SERUM 2.9 mmol/L (3.5-5.1)
[2017-05-19] VITALS (24 sets, daily range): BP systolic 97–166; BP diastolic 61–96
[2017-05-19 06:24] LABS: ANION GAP 16.4 mmol/L (8-16); CALCIUM 7.7 mg/dL (8.5-10.1); CARBON DIOXIDE 23.6 mmol/L (21.0-32.0); CREATININE - SERUM 2.3 mg/dL (0.6-1.3)
[2017-05-19 06:45] LABS: BASOPHILS 0.3 % (0-2); EOSINOPHILS 0.3 % (0-7); HEMOGLOBIN 10.9 g/dL (12-16); IMMATURE GRANULOCYTES 0.4 % (0-5); LYMPHOCYTES 10.7 % (15-50); MCH 29.9 pg (26.0-34.0); MCV 90.7 fL (80.0-100.0); MONOCYTES 10.2 % (2-11); NEUTROPHILS 78.1 % (40-80); RBC 3.64 10x6/uL (4.00-5.40); RDW 15.8 % (11.5-14.5); WBC 7.9 10x3/uL (4.8-10.8)
[2017-05-19 06:47] LABS: PLATELET COUNT 295 10x3/uL (130-400)
[2017-05-20] VITALS (36 sets, daily range): BP systolic 99–164; BP diastolic 53–101
[2017-05-20 06:13] LABS: BASOPHILS 0.1 % (0-2); EOSINOPHILS 0.1 % (0-7); HEMATOCRIT 28.7 % (36.0-48.0); HEMOGLOBIN 9.2 g/dL (12-16); IMMATURE GRANULOCYTES 0.3 % (0-5); LYMPHOCYTES 10.9 % (15-50); MCHC 32.1 g/dL (31.0-37.0); MCV 90.5 fL (80.0-100.0); MEAN PLATELET VOLUME 9.8 fL (7.4-10.4); MONOCYTES 12.5 % (2-11); NEUTROPHILS 76.1 % (40-80); PLATELET COUNT 293 10x3/uL (130-400); RBC 3.17 10x6/uL (4.00-5.40); RDW 15.6 % (11.5-14.5); WBC 6.9 10x3/uL (4.8-10.8)
[2017-05-20 06:28] LABS: ANION GAP 16.8 mmol/L (8-16); CALCIUM 7.7 mg/dL (8.5-10.1); CARBON DIOXIDE 23.4 mmol/L (21.0-32.0)
[2017-05-20 06:29] LABS: POTASSIUM - SERUM 3.2 mmol/L (3.5-5.1)
[2017-05-21] VITALS (44 sets, daily range): BP systolic 89–163; BP diastolic 48–98
[2017-05-21 05:26] LABS: BASOPHILS 0 % (0-2); EOSINOPHILS 0.3 % (0-7); IMMATURE GRANULOCYTES 0.4 % (0-5); LYMPHOCYTES 8.7 % (15-50); MCHC 31.8 g/dL (31.0-37.0); MCV 91.2 fL (80.0-100.0); MEAN PLATELET VOLUME 9.3 fL (7.4-10.4); MONOCYTES 4.7 % (2-11); NEUTROPHILS 85.9 % (40-80); RDW 15.5 % (11.5-14.5)
[2017-05-21 05:27] LABS: HEMATOCRIT 19.8 % (36.0-48.0); HEMOGLOBIN 6.3 g/dL (12-16); PLATELET COUNT 209 10x3/uL (130-400); RBC 2.17 10x6/uL (4.00-5.40); WBC 10.4 10x3/uL (4.8-10.8)
[2017-05-21 05:38] LABS: ALBUMIN 1.2 g/dL (3.4-5.0); ANION GAP 17.1 mmol/L (8-16); BILIRUBIN - TOTAL 0.38 mg/dL (0.2-1.3); CALCIUM 7.5 mg/dL (8.5-10.1); CARBON DIOXIDE 23.4 mmol/L (21.0-32.0); PROTEIN - SERUM 5.4 g/dL (6.4-8.2)
[2017-05-21 05:39] LABS: CREATININE - SERUM 2.7 mg/dL (0.6-1.3); POTASSIUM - SERUM 4.5 mmol/L (3.5-5.1)
[2017-05-22] VITALS (24 sets, daily range): BP systolic 97–151; BP diastolic 47–87
[2017-05-22 05:24] LABS: BASOPHILS 0 % (0-2); EOSINOPHILS 0 % (0-7); IMMATURE GRANULOCYTES 0.4 % (0-5); LYMPHOCYTES 7.9 % (15-50); MCH 29.7 pg (26.0-34.0); MCHC 34.4 g/dL (31.0-37.0); MEAN PLATELET VOLUME 9.4 fL (7.4-10.4); NEUTROPHILS 87.7 % (40-80); PLATELET COUNT 201 10x3/uL (130-400); RDW 15.2 % (11.5-14.5); WBC 12.8 10x3/uL (4.8-10.8)
[2017-05-22 05:35] LABS: HEMATOCRIT 29.4 % (36.0-48.0); HEMOGLOBIN 10.1 g/dL (12-16); MCV 86.5 fL (80.0-100.0)
[2017-05-22 05:36] LABS: ANION GAP 16.1 mmol/L (8-16); CALCIUM 7.8 mg/dL (8.5-10.1); CARBON DIOXIDE 23.9 mmol/L (21.0-32.0); CREATININE - SERUM 2.8 mg/dL (0.6-1.3)
[2017-05-23] VITALS (24 sets, daily range): BP systolic 138–159; BP diastolic 66–92
[2017-05-23 05:23] LABS: BASOPHILS 0.1 % (0-2); EOSINOPHILS 0.1 % (0-7); HEMATOCRIT 27.4 % (36.0-48.0); HEMOGLOBIN 9.4 g/dL (12-16); IMMATURE GRANULOCYTES 0.1 % (0-5); LYMPHOCYTES 7.1 % (15-50); MCH 29.7 pg (26.0-34.0); MCHC 34.3 g/dL (31.0-37.0); MCV 86.4 fL (80.0-100.0); MEAN PLATELET VOLUME 10.6 fL (7.4-10.4); MONOCYTES 5.5 % (2-11); NEUTROPHILS 87.1 % (40-80); PLATELET COUNT 219 10x3/uL (130-400); RBC 3.17 10x6/uL (4.00-5.40); WBC 11.1 10x3/uL (4.8-10.8)
[2017-05-23 06:11] LABS: ANION GAP 16.2 mmol/L (8-16); CALCIUM 7.5 mg/dL (8.5-10.1); CARBON DIOXIDE 25.3 mmol/L (21.0-32.0); CREATININE - SERUM 2.2 mg/dL (0.6-1.3); POTASSIUM - SERUM 3.5 mmol/L (3.5-5.1)
[2017-05-24] VITALS (24 sets, daily range): BP systolic 123–168; BP diastolic 65–88
[2017-05-24 05:22] LABS: BASOPHILS 0 % (0-2); EOSINOPHILS 0.1 % (0-7); HEMATOCRIT 27.3 % (36.0-48.0); HEMOGLOBIN 9.3 g/dL (12-16); IMMATURE GRANULOCYTES 0.4 % (0-5); LYMPHOCYTES 8.4 % (15-50); MCH 29.8 pg (26.0-34.0); MCHC 34.1 g/dL (31.0-37.0); MCV 87.5 fL (80.0-100.0); MEAN PLATELET VOLUME 9.4 fL (7.4-10.4); NEUTROPHILS 83.1 % (40-80); RBC 3.12 10x6/uL (4.00-5.40); RDW 14.8 % (11.5-14.5); WBC 9.9 10x3/uL (4.8-10.8)
[2017-05-24 05:27] LABS: PLATELET COUNT 148 10x3/uL (130-400)
[2017-05-24 08:55] LABS: ALBUMIN 1.3 g/dL (3.4-5.0); BILIRUBIN - TOTAL 0.67 mg/dL (0.2-1.3); CALCIUM 7.1 mg/dL (8.5-10.1); CREATININE - SERUM 2.6 mg/dL (0.6-1.3); MAGNESIUM - SERUM 1.8 mg/dL (1.8-2.4); PHOSPHOROUS 3.4 mg/dL (2.5-4.9); PROTEIN - SERUM 5.6 g/dL (6.4-8.2)
[2017-05-24 09:06] LABS: ANION GAP 16.3 mmol/L (8-16); CARBON DIOXIDE 25.7 mmol/L (21.0-32.0)
[2017-05-25] VITALS (24 sets, daily range): BP systolic 122–166; BP diastolic 51–97
[2017-05-25 04:59] LABS: ANION GAP 20.6 mmol/L (8-16); CALCIUM 7.2 mg/dL (8.5-10.1); CARBON DIOXIDE 20.7 mmol/L (21.0-32.0); CREATININE - SERUM 2.5 mg/dL (0.6-1.3); POTASSIUM - SERUM 3.3 mmol/L (3.5-5.1)
[2017-05-25 06:48] LABS: BASOPHILS 0 % (0-2); EOSINOPHILS 0.3 % (0-7); HEMATOCRIT 31.3 % (36.0-48.0); HEMOGLOBIN 10.5 g/dL (12-16); IMMATURE GRANULOCYTES 0.4 % (0-5); LYMPHOCYTES 8.3 % (15-50); MCH 29.5 pg (26.0-34.0); MCHC 33.5 g/dL (31.0-37.0); MCV 87.9 fL (80.0-100.0); MEAN PLATELET VOLUME 9.9 fL (7.4-10.4); MONOCYTES 10.5 % (2-11); NEUTROPHILS 80.5 % (40-80); PLATELET COUNT 167 10x3/uL (130-400); RBC 3.56 10x6/uL (4.00-5.40); RDW 14.8 % (11.5-14.5); WBC 7.8 10x3/uL (4.8-10.8)
[2017-05-26] VITALS (10 sets, daily range): BP systolic 137–170; BP diastolic 62–89
[2017-05-26 06:17] LABS: BASOPHILS 0.1 % (0-2); EOSINOPHILS 0.5 % (0-7); HEMATOCRIT 29.1 % (36.0-48.0); HEMOGLOBIN 9.6 g/dL (12-16); IMMATURE GRANULOCYTES 0.2 % (0-5); LYMPHOCYTES 10.7 % (15-50); MCH 29.3 pg (26.0-34.0); MCV 88.7 fL (80.0-100.0); MEAN PLATELET VOLUME 9.7 fL (7.4-10.4); MONOCYTES 11.5 % (2-11); RBC 3.28 10x6/uL (4.00-5.40); WBC 8.5 10x3/uL (4.8-10.8)
[2017-05-26 06:27] LABS: PLATELET COUNT 204 10x3/uL (130-400)
[2017-05-26 07:02] LABS: ANION GAP 17.6 mmol/L (8-16); CALCIUM 7.4 mg/dL (8.5-10.1); CARBON DIOXIDE 23.1 mmol/L (21.0-32.0); CREATININE - SERUM 2.2 mg/dL (0.6-1.3)
[2017-05-26 07:05] LABS: POTASSIUM - SERUM 2.7 mmol/L (3.5-5.1)
[2017-06-02 09:16] LABS: FUNGUS MYCOLOGY CULTURE Final report (())
[2017-06-18 16:14] LABS: ACID FAST CULTURE Negative (()); ACID FAST SMEAR Negative (())
== END 2017-05-26 12:48 | disposition short-term general hospital (02) | DRG 4 ==
LOC: D.ER 17:40 → EDSTATUS 17:40 → D.ICU 18:27
PROVIDERS: Family Medicine; Internal Medicine; Internal Medicine Nephrology; Internal Medicine Pulmonary Disease
PROC: 0BH17EZ Insertion of Endotracheal Airway into Trachea, Via Natural or Artificial Opening (ICD-10-PCS; principal; 2017-05-01)
PROC: 5A1955Z Respiratory Ventilation, Greater than 96 Consecutive Hours (ICD-10-PCS; 2017-05-01)
PROC: 0T9B70Z Drainage of Bladder with Drainage Device, Via Natural or Artificial Opening (ICD-10-PCS; 2017-05-01)
PROC: 5A1D70Z Performance of Urinary Filtration, Intermittent, Less than 6 Hours Per Day (ICD-10-PCS; 2017-05-02)
PROC: 0W993ZZ Drainage of Right Pleural Cavity, Percutaneous Approach (ICD-10-PCS; 2017-05-03)
PROC: 06HM33Z Insertion of Infusion Device into Right Femoral Vein, Percutaneous Approach (ICD-10-PCS; 2017-05-10)
PROC: B54BZZA Ultrasonography of Right Lower Extremity Veins, Guidance (ICD-10-PCS; 2017-05-10)
PROC: 0B110F4 Bypass Trachea to Cutaneous with Tracheostomy Device, Open Approach (ICD-10-PCS; 2017-05-20)
PROC: 0DH63UZ Insertion of Feeding Device into Stomach, Percutaneous Approach (ICD-10-PCS; 2017-05-20)
DX: J96.01 Acute respiratory failure with hypoxia (principal); J69.0 Pneumonitis due to inhalation of food and vomit; I50.33 Acute on chronic diastolic (congestive) heart failure; N18.6 End stage renal disease; J15.6 Pneumonia due to other Gram-negative bacteria; J15.0 Pneumonia due to Klebsiella pneumoniae; G93.41 Metabolic encephalopathy; J93.9 Pneumothorax, unspecified; A04.72 Enterocolitis due to Clostridium difficile, not specified as recurrent; I13.2 Hypertensive heart and chronic kidney disease with heart failure and with stage 5 chronic kidney disease, or end stage renal disease; J98.11 Atelectasis; L89.159 Pressure ulcer of sacral region, unspecified stage; L89.899 Pressure ulcer of other site, unspecified stage; Z78.1 Physical restraint status; E11.22 Type 2 diabetes mellitus with diabetic chronic kidney disease; Z99.2 Dependence on renal dialysis; E11.649 Type 2 diabetes mellitus with hypoglycemia without coma; F03.90 Unspecified dementia, unspecified severity, without behavioral disturbance, psychotic disturbance, mood disturbance, and anxiety; H40.9 Unspecified glaucoma; I27.20 Pulmonary hypertension, unspecified; E87.6 Hypokalemia; I08.1 Rheumatic disorders of both mitral and tricuspid valves; E11.21 Type 2 diabetes mellitus with diabetic nephropathy; Z86.73 Personal history of transient ischemic attack (TIA), and cerebral infarction without residual deficits; E03.9 Hypothyroidism, unspecified